=== PATIENT | male | born 1965 | race Caucasian/White ===

== ENCOUNTER 2024-10-14 12:18 | Emergency (ER) | payer OTHER, SELFPAY ==
[2024-10-14] VITALS (7 sets, daily range): BP systolic 119–147; BP diastolic 59–89; PULSE 64–102; RESP 11–28; TEMP 36.5–36.6; O2SAT 95–99; BMI 32.1
--- NOTE | 2024-10-14 12:19 | ECG_ITS ---
APPROVED REPORT Exam: Resting ECG HR:82 bpm ECG Measurements Heart Rate 82 AXES QRSd 110 QRS 11 QT 374 T 42 QTc 412 Conclusion ATRIAL FIBRILLATION ABNORMAL RHYTHM ECG UNCONFIRMED REPORT Electronically signed by : THERESE WELLS, 10/15/2024 06:33:37
--- NOTE | 2024-10-14 12:29 | XR_ITS ---
PROCEDURE INFORMATION: Exam: XR Chest Exam date and time: 10/14/2024 12:36 PM Age: 59 years old Clinical indication: Shortness of breath; Additional info: Short of breath TECHNIQUE: Imaging protocol: Radiologic exam of the chest. Views: 1 view. COMPARISON: No relevant prior studies available. FINDINGS: Lungs: There are minimal airspace opacities in the left lung base. Pleural spaces: There is no pneumothorax or pleural effusion. Heart/Mediastinum: Unremarkable. No cardiomegaly. Bones/joints: Unremarkable. IMPRESSION: Minimal airspace opacities in the left lower lobe, which may be related to atelectasis or pneumonia.
--- NOTE | 2024-10-14 12:36 | PC.NURSE ---
[facility] AT [facility]
[2024-10-14 12:38] LABS: Basophils % 0.4 % (0.1-2.0); Eosinophils # 0.1 K/mm3 (0.0-0.4); Eosinophils % 0.7 % (0.1-12.0); Hematocrit 49.5 % (42.0-52.0); Hemoglobin 16.3 g/dL (14.1-18.0); Lymphocytes # 1.9 K/mm3 (0.7-4.5); Lymphocytes % 21.5 % (10-50); Mean Corpuscular HGB Conc 32.9 g/dL (31.8-35.4); Mean Corpuscular Hemoglobin 26.9 pg (27.0-31.2); Mean Corpuscular Volume 81.7 fl (80-94); Mean Platelet Volume 12.1 fl (7.4-10.4); Monocytes # 0.7 K/mm3 (0.1-1.0); Neutrophils # 6.2 K/mm3 (1.8-7.8); Neutrophils % 69.1 % (37.0-80.0); Platelet Count 156 K/mm3 (142-424); Red Blood Count 6.06 M/mm3 (4.60-6.20); Red Cell Distribution Width 13.4 % (11.5-17.5)
[2024-10-14 12:42] LABS: Chloride 101 mmol/L (98-107); Potassium 4.6 mmoL/L (3.5-5.1); Sodium 138 mmol/L (136-145)
[2024-10-14 12:45] LABS: Alanine Aminotransferase 25 U/L (12-78); Albumin/Globulin Ratio 1.8 (1.1-1.8); Alkaline Phosphatase 60 U/L (38-126); Anion Gap 14.6 mEq/L (5-15); Aspartate Amino Transferase 29 U/L (17-59); Bilirubin,Total 1.5 mg/dl (0.2-1.3); Blood Urea Nitrogen 22 mg/dl (9-20); Carbon Dioxide 27 mmol/L (22.0-30.0); Creatinine Clearance Estimated 180 mL/min (50-200); Estimated Glomerular Filt Rate 115 ml/min (>60); GFR (African American) 139 ML/MIN (>60); Globulin 2.8 g/dL (1.3-3.2); Lipase 65 U/L (23-300); Total Protein,Serum 7.8 g/dl (6.3-8.2)
[2024-10-14 12:46] LABS: Calcium 9.6 mg/dl (8.4-10.2); Glucose 113 mg/dl (74-100)
[2024-10-14] MEDS: ASPIRIN 81MG CHEWABLE TABLET 324 MG PO (12:47)
--- NOTE | 2024-10-14 12:48 | ED_ITS ---
Discharge Plan Disposition Patient Disposition: Home, Self-Care Condition: Good Prescriptions Prescriptions: New furosemide [Lasix] 40 mg tablet 40 mg PO DAILY Qty: 30 2RF Eliquis DVT-PE Treat 30D Start 5 mg (74 tabs) tablets,dose pack 5 mg PO BID Qty: 74 0RF Rx Instructions: 10 mg twice daily for 7 days 5 mg twice daily from then on Eliquis 5 mg tablet 5 mg PO BID Qty: 60 2RF No Action metoprolol succinate 100 mg tablet extended release 24 hr 100 mg PO DAILY rosuvastatin 40 mg tablet 40 mg PO DAILY Referrals Follow up/Referrals: Clarissa Dickson APRN [Primary Care Provider] - See instructions Chan Rose MD [Staff Physician] - See instructions Activity Restrictions/Add. Instructions Additional Instructions/Restrictions: Return to the ER with any increased shortness of breath or chest pain. Please follow-up with PCP as scheduled. Clinical Impressions Clinical Impression: CHF (congestive heart failure), Afib Instructions Patient Instructions: Cardiac Arrhythmia (Alternative Therapy), Heart Failure Print Language Print Language: Pashto Discharge ED Provider: Zach Tellez General Adult HPI <Melinda Rodriguez (ED), COMPUTING MACHINE OPERATOR - Last Filed: 10/14/24 15:34> General Chief complaint: Arrhythmia/Palpitations Stated complaint: Chest Pain Time Seen by Provider: 10/14/24 12:20 Mode of Arrival: Family Vehicle Source of Information: Patient and Spouse Limitations: No Limitations Description of Symptoms (Recalled from ER Triage Doc. by RN): Pt presents with LL CHest pain and a hx of afib. In 2011 he had afib, was cardioverted and placed on eliquis for 8 wk. He is currently on metoprolol but no blood tihnners. States this pain has been present for approx 1 wk. Denies any dizziness, SOA, or n/v. He does reports he can not take a deep breath comfortably. History of Present Illness HPI narrative: 59-year-old male presents to the ED today for complaint of left lower chest pain and shortness of breath with exertion over the last week. He has history of A- fib back in 2011. He was cardioverted and placed on Eliquis for 8 weeks. He saw senior compensation analyst at the [facility] until 2019 but then stopped. He says he started having shortness of breath with exertion and muscle fatigue 1 week ago. He said with the initial episode of A-fib he had sweating but he has no sweating this time. He normally has normal blood pressure and normal heart rate. On the monitor he has 84 heart rate and 160/100. He is on aspirin, rosuvastatin and metoprolol. He no longer takes any Eliquis or any other blood thinners. He does not see cardiology anymore. He says he only has pain when he is exerted or takes a big deep breath. He rates the pain as 1-2. No other symptoms at this time. Related Data Home Medications ?Medication ?Instructions ?Recorded ?Confirmed metoprolol succinate 100 mg 100 mg PO DAILY 10/14/24 10/14/24 tablet,extended release 24 hr rosuvastatin 40 mg tablet 40 mg PO DAILY 10/14/24 10/14/24 Previous Rx's ?Medication ?Instructions ?Recorded apixaban 5 mg (74 tabs) tablets in 5 mg PO BID #74 tabs 10/14/24 a dose pack (Eliquis DVT-PE Treat 30D Start) apixaban 5 mg tablet (Eliquis) 5 mg PO BID #60 tabs 10/14/24 furosemide 40 mg tablet (Lasix) 40 mg PO DAILY #30 tabs 10/14/24 Allergies Allergy/AdvReac Type Severity Reaction Status Date / Time atorvastatin AdvReac Intermediate Muscle Pain Verified 10/14/24 12:42 [facility] <Melinda Rodriguez (ED), COMPUTING MACHINE OPERATOR - Last Filed: 10/14/24 15:34> [facility] Disclaimer: The information contained in this section may have been updated after the patient was seen, as this information can be updated by other users. Medical History History of cardioversion Afib Social History (Updated 10/14/24 @ 15:34 by Melinda Rodriguez (ED), COMPUTING MACHINE OPERATOR) Smoking Status: Never smoker alcohol intake: never current occupational status: other Travel in the last 8 weeks: None Have you lived/traveled outside US in past 30 days?: No Contact w/someone who lives/traveled outside US past 30 days?: No Exposure to someone with infectious disease in past 14 days?: No Do you have a fever (greater than 100.4 F or 38 C)?: No Have you tested positive for COVID-19: No Exposed to someone with COVID-19 in past 14 days?: No Do you have a sore throat?: No Do you have a cough?: No Do you have any weakness?: No Do you have any diarrhea?: No Are you experiencing any unusual bleeding?: No Do you have any muscle aches/pain?: No Do you have any abdominal pain?: No Are you experiencing loss of taste or smell?: No <Melinda Rodriguez (ED), COMPUTING MACHINE OPERATOR - Last Filed: 10/14/24 15:34> ROS Obtained: Yes Systems reviewed as appropriate & no additional complaints except as documented Constitutional Constitutional: Reports as per HPI Physical Exam <Melinda Rodriguez (ED), COMPUTING MACHINE OPERATOR - Last Filed: 10/14/24 15:34> General General appearance: alert and in no apparent distress Head Head exam: normocephalic Eye Eye exam: Present normal appearance and PERRL ENT ENT exam: Present normal exam and mucous membranes moist Neck Neck exam: Present normal inspection and trachea midline Chest Chest inspection: Present normal inspection and symmetric chest wall rise Respiratory Respiratory exam: Present normal lung sounds bilaterally Cardiovascular Cardiovascular exam: Present irregular rhythm, normal heart sounds, +S1 and +S2 Abdominal Exam Abdominal exam: Present soft and normal bowel sounds Extremities Exam Extremities exam: Present normal inspection, full ROM and normal capillary refill Back Exam Back exam: Present normal inspection and full ROM Neurological Exam Neurological exam: Present alert, oriented X3 and normal gait Psychiatric Psychiatric exam: Present normal affect and normal mood Skin Skin exam: Present warm and dry Medical Decision Making <Melinda Rodriguez (ED), COMPUTING MACHINE OPERATOR - Last Filed: 10/14/24 15:34> Medical Records Screening: Per USPSTF and CDC recommendations, given the prevalence of disease in our region, it is our hospital?s policy to screen for HIV and viral Hepatitis for all patients aged 18 and over and those with ongoing risk factors. John Inquiry Pt receiving controlled substance: No John was queried for this patient: No Vital Signs: 10/14/24 12:19 10/14/24 12:30 10/14/24 13:00 Temperature 97.7 F Temperature Source Oral Pulse Rate 84 78 Pulse Rate [Right] 102 H Respiratory Rate 19 25 H 27 H Blood Pressure 130/79 121/76 Blood Pressure [Right Arm] 130/79 Blood Pressure Mean [Right Arm] 96 Blood Pressure Source [Right Arm] Automatic Cuff Blood Pressure Position 02 Sat by Pulse Oximetry 95 95 95 Oxygen Delivery Method Room Air Room Air 10/14/24 13:30 10/14/24 14:00 10/14/24 14:00 Temperature 97.9 F Temperature Source Oral Pulse Rate 68 84 64 Pulse Rate [Right] Respiratory Rate 28 H 18 11 L Blood Pressure 121/76 121/59 L 147/89 H Blood Pressure [Right Arm] Blood Pressure Mean [Right Arm] Blood Pressure Source [Right Arm] Blood Pressure Position Sitting 02 Sat by Pulse Oximetry 95 97 Oxygen Delivery Method Room Air 10/14/24 14:30 10/14/24 15:00 Temperature Temperature Source Pulse Rate 97 H 79 Pulse Rate [Right] Respiratory Rate 28 H 21 Blood Pressure 123/74 119/71 Blood Pressure [Right Arm] Blood Pressure Mean [Right Arm] Blood Pressure Source [Right Arm] Blood Pressure Position 02 Sat by Pulse Oximetry 97 97 Oxygen Delivery Method Room Air Lab Data Lab Results 10/14/24 12:15: WBC 9.0, RBC 6.06, Hgb 16.3, Hct 49.5, MCV 81.7, MCH 26.9 L, MCHC 32.9, RDW 13.4, Plt Count 156, MPV 12.1 H, Neut % (Auto) 69.1, Lymph % (Auto) 21.5, [place] % (Auto) 8.0, Eos % (Auto) 0.7, Baso % (Auto) 0.4, Neut # (Auto) 6.2, Lymph # (Auto) 1.9, [place] # (Auto) 0.7, Eos # (Auto) 0.1, Baso # (Auto) 0.0, Sodium 138, Potassium 4.6, Chloride 101, Carbon Dioxide 27, Anion Gap 14.6, BUN 22 H, Creatinine 0.70, Estimated Creat Clear 180, Estimated GFR 115, Est GFR ( Amer) 139, Glucose 113 H, Calcium 9.6, Total Bilirubin 1.5 H, AST 29, ALT 25, Alkaline Phosphatase 60, Troponin I < 0.01, NT-Pro-B Natriuret Pep 1990 H, Total Protein 7.8, Albumin 5.0, Globulin 2.8, Albumin/Globulin Ratio 1.8, Lipase 65 10/14/24 12:15 10/14/24 12:15 Orders (Tests/Meds): ED MEDICATIONS Discontinued Medications Generic Name Dose Route Start Last Admin Trade Name Primo PRN Reason Stop Dose Admin Aspirin 324 mg 10/14/24 12:29 10/14/24 12:47 Aspirin 81mg Chewable Tablet PO 10/14/24 12:30 324 mg ONCE ONE Administration Enoxaparin Sodium 115 mg 10/14/24 14:45 10/14/24 14:54 Enoxaparin 120mg/0.8ml Syringe SUBCUT 10/14/24 14:46 115 mg ONCE ONE Administration Furosemide 60 mg 10/14/24 14:30 10/14/24 14:36 Furosemide 40mg/4ml Vial IV 10/14/24 14:31 60 mg ONCE ONE Administration Nitroglycerin 0.4 mg 10/14/24 12:29 Nitroglycerin 0.4mg Sl Tablet SL 10/15/24 12:30 Q5MINP PRN Chest Pain ORDERS Category Date Time Status Chest XR -- portable [XR chest portable] Stat Exams 10/14/24 12:29 Completed POCUS Point of Care (ER Only) Stat Exams 10/14/24 14:23 Completed BNP [NT Pro Brain Natriuretic Pep.] Stat Lab 10/14/24 12:15 Completed CBC [Complete Blood Count Auto Diff] Stat Lab 10/14/24 12:15 Completed Comprehensive Metabolic Panel Stat Lab 10/14/24 12:15 Completed Lipase Stat Lab 10/14/24 12:15 Completed Troponin I Stat Lab 10/14/24 18:15 Completed ECG Data Tracing #1: Arrhythmias present: afib Physician Consults Physician Consulted: Alyce Reason -: Admission Comment/Response: Dr Mead asked me to discuss [facility] admission versus [facility]. Once I did this Alyce came down to evaluate patient in the Er HEART Score History (anamnesis): Slightly suspicious ECG: Non-specific disturbance Age: 45-65 years Risk factors: 1-2 risk factors Troponin: </= normal limit HEART Score: 3 Medical Decision Narrative: Insert review patient is a 59-year-old male presenting to the emergency department for evaluation of shortness of breath and muscle fatigue that started this past week. Patient is hemodynamically stable and nontoxic-appearing upon arrival, afebrile. Differential diagnosis includes CAD, A-fib, other arrhythmias among others. Workup will be conducted with hematologic labs, specific imaging including x-ray and ultrasound. Initial inventions include labs, ultrasound, aspirin. Initial workup reviewed by me hematologic labs are remarkable for elevated BNP at 1989. Imaging informally interpreted by me and remarkable for nothing acute. Formal imaging read remarkable for small pleural effusion. Upon repeat evaluation patient appears well. Shortness of breath is gone since patient is lying down. Typically only has shortness of breath and pain when taking a big deep breath or moving. Due to elevated BNP at 1989 patient has new onset CHF I did call Dr. Mead for admission. He came down to the ER for evaluation. He wants patient to have IV Lasix here in the ED. Dr. Tellez did a bedside ultrasound on his heart and discovered systolic and diastolic failure but no right heart strain. We did not do a CT of his chest because he has no right heart strain. We did give him Lovenox and will start him back on Eliquis to go home on. Patient will follow-up outpatient with cardiology on Wednesday. He will return if any worsening problems or concerns. <Zach Tellez MD - Last Filed: 10/15/24 09:43> Vital Signs: 10/14/24 12:19 10/14/24 12:30 10/14/24 13:00 Temperature 97.7 F Temperature Source Oral Pulse Rate 84 78 Pulse Rate [Right] 102 H Respiratory Rate 19 25 H 27 H Blood Pressure 130/79 121/76 Blood Pressure [Right Arm] 130/79 Blood Pressure Mean [Right Arm] 96 Blood Pressure Source [Right Arm] Automatic Cuff Blood Pressure Position 02 Sat by Pulse Oximetry 95 95 95 Oxygen Delivery Method Room Air Room Air 10/14/24 13:30 10/14/24 14:00 10/14/24 14:00 Temperature 97.9 F Temperature Source Oral Pulse Rate 68 84 64 Pulse Rate [Right] Respiratory Rate 28 H 18 11 L Blood Pressure 121/76 121/59 L 147/89 H Blood Pressure [Right Arm] Blood Pressure Mean [Right Arm] Blood Pressure Source [Right Arm] Blood Pressure Position Sitting 02 Sat by Pulse Oximetry 95 97 Oxygen Delivery Method Room Air 10/14/24 14:30 10/14/24 15:00 Temperature Temperature Source Pulse Rate 97 H 79 Pulse Rate [Right] Respiratory Rate 28 H 21 Blood Pressure 123/74 119/71 Blood Pressure [Right Arm] Blood Pressure Mean [Right Arm] Blood Pressure Source [Right Arm] Blood Pressure Position 02 Sat by Pulse Oximetry 97 97 Oxygen Delivery Method Room Air Lab Data Lab Results 10/14/24 12:15: WBC 9.0, RBC 6.06, Hgb 16.3, Hct 49.5, MCV 81.7, MCH 26.9 L, MCHC 32.9, RDW 13.4, Plt Count 156, MPV 12.1 H, Neut % (Auto) 69.1, Lymph % (Auto) 21.5, [place] % (Auto) 8.0, Eos % (Auto) 0.7, Baso % (Auto) 0.4, Neut # (Auto) 6.2, Lymph # (Auto) 1.9, [place] # (Auto) 0.7, Eos # (Auto) 0.1, Baso # (Auto) 0.0, Sodium 138, Potassium 4.6, Chloride 101, Carbon Dioxide 27, Anion Gap 14.6, BUN 22 H, Creatinine 0.70, Estimated Creat Clear 180, Estimated GFR 115, Est GFR ( Amer) 139, Glucose 113 H, Calcium 9.6, Total Bilirubin 1.5 H, AST 29, ALT 25, Alkaline Phosphatase 60, Troponin I < 0.01, NT-Pro-B Natriuret Pep 1990 H, Total Protein 7.8, Albumin 5.0, Globulin 2.8, Albumin/Globulin Ratio 1.8, Lipase 65 Orders (Tests/Meds): ED MEDICATIONS Discontinued Medications Generic Name Dose Route Start Last Admin Trade Name Haydenq PRN Reason Stop Dose Admin Aspirin 324 mg 10/14/24 12:29 10/14/24 12:47 Aspirin 81mg Chewable Tablet PO 10/14/24 12:30 324 mg ONCE ONE Administration Enoxaparin Sodium 115 mg 10/14/24 14:45 10/14/24 14:54 Enoxaparin 120mg/0.8ml Syringe SUBCUT 10/14/24 14:46 115 mg ONCE ONE Administration Furosemide 60 mg 10/14/24 14:30 10/14/24 14:36 Furosemide 40mg/4ml Vial IV 10/14/24 14:31 60 mg ONCE ONE Administration Nitroglycerin 0.4 mg 10/14/24 12:29 Nitroglycerin 0.4mg Sl Tablet SL 10/15/24 12:30 Q5MINP PRN Chest Pain ORDERS Category Date Time Status Chest XR -- portable [XR chest portable] Stat Exams 10/14/24 12:29 Completed POCUS Point of Care (ER Only) Stat Exams 10/14/24 14:23 Completed BNP [NT Pro Brain Natriuretic Pep.] Stat Lab 10/14/24 12:15 Completed CBC [Complete Blood Count Auto Diff] Stat Lab 10/14/24 12:15 Completed Comprehensive Metabolic Panel Stat Lab 10/14/24 12:15 Completed Lipase Stat Lab 10/14/24 12:15 Completed Troponin I Stat Lab 10/14/24 18:15 Completed ECG Data Tracing #1: I reviewed this ECG and interpreted as documented below: (A-fib 82 bpm with QRS 110, QTc 412. Normal axis, no acute ischemic change.) HEART Score HEART Score: 3 Medical Decision Narrative: Insert review patient is a 59-year-old male presenting to the emergency department for evaluation of shortness of breath and muscle fatigue that started this past week. Patient is hemodynamically stable and nontoxic-appearing upon arrival, afebrile. Differential diagnosis includes CAD, A-fib, other arrhythmias among others. Workup will be conducted with hematologic labs, specific imaging including x-ray and ultrasound. Initial inventions include labs, ultrasound, aspirin. Initial workup reviewed by me hematologic labs are remarkable for elevated BNP at 1989. Imaging informally interpreted by me and remarkable for nothing acute. Formal imaging read remarkable for small pleural effusion. Upon repeat evaluation patient appears well. Shortness of breath is gone since patient is lying down. Typically only has shortness of breath and pain when taking a big deep breath or moving. Due to elevated BNP at 1989 patient has new onset CHF I did call Dr. Mead for admission. He came down to the ER for evaluation. He wants patient to have IV Lasix here in the ED. Dr. Tellez did a bedside ultrasound on his heart and discovered systolic and diastolic failure but no right heart strain. We did not do a CT of his chest because he has no right heart strain. We did give him Lovenox and will start him back on Eliquis to go home on. Patient will follow-up outpatient with cardiology on Wednesday. He will return if any worsening problems or concerns. I was consulted by the [place], and we discussed the complexity of the problems being addressed. I approved the treatment and management plan for this patient's care in the Emergency Department, thus performing a substantive portion of the medical decision making. I independently examined and interviewed patient. I independently interpreted results. Nonactionable CBC or chemistry, but patient does have new BNP nearly 2000 as well as new onset (for all intents and purposes) atrial fibrillation. Patient states that he did have atrial fibrillation in the past, was only on anticoagulation for short period of time and taken off. Was never restarted on it. States that he is feeling short of breath, but denies swelling. On my exam he is not clinically volume overloaded and lungs are not particularly edematous on auscultation. Speaking in full sentences not requiring oxygen saturating 98 to 100% while up and talking with me. Chest x-ray does appear to have cephalization of pulmonary vasculature as well as small left-sided pleural effusion consistent with mild volume overload. Bedside [id number] ultrasound with left heart 5.3 centimeters, right heart 3.3 cm at end diastole. Ejection fraction estimated 40 to 45%. I recommended patient be admitted, however shared decision making between myself, hospitalist, patient and agreed that they feel comfortable going home. I do not feel this is the ideal situation, but patient is in mild CHF, not clinically volume overloaded, no acute oxygen requirement, minimal findings on chest x-ray, no acute respiratory distress with negative cardiac workup otherwise. Patient was given IV Lasix here prior to being discharged. Patient to be discharged with diuretics and Eliquis for new onset A-fib as well as cardiology follow-up. Patient's is a nurse practitioner and feels comfortable managing these at home, as do I after further conversation with her and patient. They do have support and have the ability to return if needed. Because patient at baseline without signs or symptoms of clinical decompensation, deemed appropriate for discharge. Results were relayed to patient who voiced understanding and were agreeable to outpatient management and follow up. I discussed my clinical impression with patient and answered all questions. At this time, the evidence for any other entities in the differential is insufficient to warrant any further testing or ED observation. This was explained as well. Advisory was given that persistent or worsening symptoms require further evaluation. I confirmed the understanding of this discussion. Zach Tellez MD Procedures <Zach Tellez MD - Last Filed: 10/15/24 09:43> Limited Ultrasound Indication:: Limited cardiac ultrasound Indication: CHF, A-fib both new onset Identified cardiac views: -Cardiac parasternal long axis -Cardiac parasternal short axis -Cardiac apical four-chamber Findings: -Cardiac activity present -Gross wall motion normal -Pericardial effusion absent -Right heart strain absent -EPSS 13.7 -End-diastolic left ventricular diameter 5.3 -End-diastolic right ventricular diameter 3.3 Impression: -Gross systolic and diastolic dysfunction. No evidence of valvular regurgitation. Estimated EPSS 13.7 and EF estimated 40-45. No evidence of right heart strain Images were saved to permanent archive The study was technically adequate CPT: 09475 This study was performed by me, and I personally interpreted all images/videos. Based on my clinical judgement, these images were adequate and did not necessitate further imaging Critical Care <Melinda Rodriguez (MORIS), ADRIENNE - Last Filed: 10/14/24 15:34> Critical Care Time Critical Care Time: No <Zach Tellez MD - Last Filed: 10/15/24 09:43> Critical Care Time Critical Care Time: Yes (Cardiac) Attestation: On 10/14/24, the high probability of a clinically significant, sudden or life threatening deterioration of the following system(s) required my full and direct attention, intervention and personal management. The time I documented below is in addition to time spent performing reported procedures but includes the following listed in this critical care notation. Total Time Total Critical Care Time: 35
--- NOTE | 2024-10-14 12:56 | PC.NURSE ---
Patient in room and doesn't need anything
[2024-10-14 13:01] LABS: Troponin I < 0.01 ng/ml (0.00-0.034)
[2024-10-14 13:17] LABS: NT Pro Brain Natriuretic Pep. 1990 pg/mL (0-125)
--- NOTE | 2024-10-14 13:58 | PC.NURSE ---
DR JARAMILLO AT BEDSIDE
--- NOTE | 2024-10-14 14:00 | PC.NURSE ---
Dr. Mead at bedside
[2024-10-14] MEDS: FUROSEMIDE 40MG/4ML VIAL 60 MG IV (14:36)
--- NOTE | 2024-10-14 14:45 | EXP.MED.CON ---
History of Present Illness *Admission Date: 10/14/24 *Reason for visit:: Shortness of breath *History of present illness: Mr. Brooks is a 59-year-old male who presented to the ER because of complaint of left lower chest pain with deep breathing. 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 Patient reports pains actually and present for about a week. Complaining of some mild dyspnea with exertion. Left rib pain is like a stitch that hurts with deep inspiration. Hurts when he lays on different sides as well. Able to lay flat however without shortness of breath, sleeps with a CPAP. Does not need to prop up on pillows. Denies cough, hemoptysis, precordial chest pain, nausea or vomiting. No referred pains. Afebrile. No syncope or confusion. No swelling in his legs. Workup in the ER concerning for elevated BNP at 1989. Also found to be in rate controlled A-fib. Chest x-ray with questionable minimal effusions. Hemodynamically stable and on room air throughout time in the ER. Medicine was consulted for possible admission versus assistance in management. Concern for CHF exacerbation. Labs relatively unremarkable. On evaluation, patient appears comfortable. Rate in the 70s and 80s but clearly A-fib on telemetry. Long history of A-fib with previous conversion over a decade ago. On metoprolol at home. No longer on anticoagulation at this time, has previously been on Eliquis with good tolerance. [facility] Disclaimer: The information contained in this section may have been updated after the patient was seen, as this information can be updated by other users. Medical History History of cardioversion Afib Social History (Updated 10/14/24 @ 15:34 by Melinda Rodriguez (ED), ENDOSCOPY TECHNICAN) Smoking Status: Never smoker alcohol intake: never current occupational status: other Travel in the last 8 weeks: None Have you lived/traveled outside US in past 30 days?: No Contact w/someone who lives/traveled outside US past 30 days?: No Exposure to someone with infectious disease in past 14 days?: No Do you have a fever (greater than 100.4 F or 38 C)?: No Have you tested positive for COVID-19: No Exposed to someone with COVID-19 in past 14 days?: No Do you have a sore throat?: No Do you have a cough?: No Do you have any weakness?: No Do you have any diarrhea?: No Are you experiencing any unusual bleeding?: No Do you have any muscle aches/pain?: No Do you have any abdominal pain?: No Are you experiencing loss of taste or smell?: No Review of Systems Review of Systems Review of systems (narrative): 14 point review of systems performed, pertinent positives and negatives as per HPI Exam Data for Last 24 hours Vital signs and Labs for Last 24 Hours: Temp Pulse Resp BP Pulse Ox O2 Del Method 97.9 F 97 H 28 H 123/74 97 Room Air 10/14/24 14:00 10/14/24 14:30 10/14/24 14:30 10/14/24 14:30 10/14/24 14:30 10/14/24 14:00 Laboratory Results - last 24 hr 10/14/24 12:15: WBC 9.0, RBC 6.06, Hgb 16.3, Hct 49.5, MCV 81.7, MCH 26.9 L, MCHC 32.9, RDW 13.4, Plt Count 156, MPV 12.1 H, Neut % (Auto) 69.1, Lymph % (Auto) 21.5, Ross % (Auto) 8.0, Eos % (Auto) 0.7, Baso % (Auto) 0.4, Neut # (Auto) 6.2, Lymph # (Auto) 1.9, Ross # (Auto) 0.7, Eos # (Auto) 0.1, Baso # (Auto) 0.0, Sodium 138, Potassium 4.6, Chloride 101, Carbon Dioxide 27, Anion Gap 14.6, BUN 22 H, Creatinine 0.70, Estimated Creat Clear 180, Estimated GFR 115, Est GFR ( Amer) 139, Glucose 113 H, Calcium 9.6, Total Bilirubin 1.5 H, AST 29, ALT 25, Alkaline Phosphatase 60, Troponin I < 0.01, NT-Pro-B Natriuret Pep 1990 H, Total Protein 7.8, Albumin 5.0, Globulin 2.8, Albumin/Globulin Ratio 1.8, Lipase 65 I & O for Last 24 hours: Intake & Output 01/05/2810/12/24 10/13/24 10/14/24 23:59 23:59 23:59 23:59 Weight 113.398 kg Constitutional Constitutional: no acute distress, obese and cooperative *Routine HEENT Exam Head: Present normocephalic Eye: Present EOMI and PERRL ENT: Present mucous membranes moist *Routine Neck Exam Neck: Present supple; Absent lymphadenopathy *Routine Respiratory Exam Respiratory: Present CTA bilaterally; Absent respiratory distress, rhonchi, stridor, wheezes or crackles *Routine Cardiovascular Exam Cardiovascular: Present irregularly irregular Comments: Rate controlled *Routine Abdominal Exam Abdominal: Present soft and normoactive bowel sounds; Absent tenderness *Routine Rectal Exam Patient deferred: visual exam *Routine Exam Patient deferred: penile exam *Routine Extremities Exam Extremities: Absent cyanosis, clubbing or edema *Routine Skin Exam Skin: Present warm; Absent rash *Routine Neurological Exam Neurological: Present alert, oriented X3 and moving all extremities; Absent altered mental status Meds Home Medications and Allergies Home Medications ?Medication ?Instructions ?Recorded ?Confirmed ?Type apixaban 5 mg (74 tabs) tablets in 5 mg PO BID #74 tabs 10/14/24 Rx a dose pack (Eliquis DVT-PE Treat 30D Start) apixaban 5 mg tablet (Eliquis) 5 mg PO BID #60 tabs 10/14/24 Rx furosemide 40 mg tablet (Lasix) 40 mg PO DAILY #30 tabs 10/14/24 Rx metoprolol succinate 100 mg 100 mg PO DAILY 10/14/24 10/14/24 History tablet,extended release 24 hr rosuvastatin 40 mg tablet 40 mg PO DAILY 10/14/24 10/14/24 History New Prescriptions to Start Prescriptions: apixaban [Eliquis] Zach Tellez apixaban [Eliquis DVT-PE Treat 30D Start] Zach Tellez furosemide [Lasix] Zach Tellez Allergies Allergy/AdvReac Type Severity Reaction Status Date / Time atorvastatin AdvReac Intermediate Muscle Pain Verified 10/14/24 12:42 Results Labs 10/14/24 12:15 10/14/24 12:15 Labs: Abnormal lab results 10/14/24 Range/Units 12:15 MCH 26.9 L (27.0-31.2) pg MPV 12.1 H (7.4-10.4) fl BUN 22 H (9-20) mg/dl Glucose 113 H (74-100) mg/dl Total Bilirubin 1.5 H (0.2-1.3) mg/dl NT-Pro-B Natriuret Pep 1990 H (0-125) pg/mL H & H 10/14/24 Range/Units 12:15 Hgb 16.3 (14.1-18.0) g/dL Hct 49.5 (42.0-52.0) % All other labs normal. Assessment and Plan *Assessment and plan (1) Afib: Status: Acute Category: Medical Code(s): I48.91 - Unspecified atrial fibrillation (2) CHF (congestive heart failure): Status: Acute Category: Medical Code(s): I50.9 - Heart failure, unspecified (3) HTN (hypertension): Status: Acute Category: Medical Code(s): I10 - Essential (primary) hypertension Plan 59-year-old male with previous history of A-fib, previously been cardioverted in sinus rhythm. His previous bereavement coordinator discontinued Eliquis. Continued on metoprolol and statin however. Presented with a week of symptoms. Found to be in controlled A-fib with suspicion for new CHF given elevated BNP. Hemodynamically stable. Medicine consulted for evaluation. After examination and discussion with patient. This patient is hemodynamically stable, rate controlled, satting 96 to 100% on room air, and has relatively benign exam, recommend discharge home with initiation of anticoagulation with Eliquis and initiation of Lasix 40 mg daily for diuresis due to CHF component. Recommend follow-up with cardiology on Wednesday in their clinic. Has an appointment already with his PCP on Wednesday. 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 Plan discussed with ER provider and family, patient comfortable with plan to discharge home with medical management and close follow-up as an outpatient. Thank you for the opportunity to assist in care of this patient.
[2024-10-14] MEDS: ENOXAPARIN 120MG/0.8ML SYRINGE 115 MG SUBCUT (14:54)
--- NOTE | 2024-10-14 15:05 | PC.NURSE ---
Last urine output 500ml
--- NOTE | 2024-10-14 15:27 | PC.NURSE ---
PT ASSISTED TO BR
== END 2024-10-14 15:38 | disposition home or self-care (01) ==
PROVIDERS: Nurse Practitioner; Emergency Provider Emergency Medicine; PCP Nurse Practitioner
DX: I50.9 Heart failure, unspecified (principal); I48.91 Unspecified atrial fibrillation; I10 Essential (primary) hypertension; R07.9 Chest pain, unspecified; R06.02 Shortness of breath; R53.83 Other fatigue
CPT/HCPCS: 71045; 80053; 83690; 83880; 84484; 85025; 93005; 96372; 96374; 99291; J1650; J1940

== ENCOUNTER 2024-10-30 10:47 | Outpatient (CLI) | payer OTHER, SELFPAY ==
[2024-10-30 13:04] LABS: D-Dimer 0.65 ug/mL (0.0-0.5)
== END 2024-10-30 23:59 | disposition home or self-care (01) ==
LOC: LAB 10:51
PROVIDERS: Visit Provider Nurse Practitioner
DX: R06.00 Dyspnea, unspecified (principal); M54.9 Dorsalgia, unspecified; I48.91 Unspecified atrial fibrillation; I10 Essential (primary) hypertension; R07.9 Chest pain, unspecified
CPT/HCPCS: 36415; 85378; 93270

== ENCOUNTER 2024-12-12 12:43 | Outpatient (CLI) | payer OTHER, SELFPAY ==
--- NOTE | 2024-12-12 12:47 | CA_ITS ---
APPROVED REPORT EXAM: Comprehensive 2D, Doppler, and color-flow Echocardiogram Fish Farmer: Nena Jurado CRT Ht: 6 ft 2 in Wt: 243lbs BSA: 2.36 BP: 109/70 mmHg Indications: Chest Pain, Congestive Heart Failure, Shortness of Breath, Atrial Fibrillation, Hypertension/HDD, cardioversion 2013 2D Dimensions LA Volume 58.00 mL LA Volume Index 24.58 mL/m2 (M/F) 16-34 M-Mode Dimensions RVDd 3.32 cm (0.9-2.6) LA Diam 4.97 cm (1.9-4.0) LVDd 5.61 cm (3.5-5.7) LVDs 3.70 cm (3.5-5.7) IVSd 1.31 cm (0.6-1.1) PWd 0.85 cm (0.6-1.1) EF (Teich) 62.30% FS 34.00% EDV (Teich) 154.30 mL TAPSE 2.27 (<1.7) ESV (Teich) 58.10 mL LV Diastology E Decel Time 150 (160-240 msec) E/A Ratio 1.9 MED A' 9.20 cm/s LAT A' 4.90 cm/s Aortic Valve AO Peak GR. 6.60 mmHg Mitral Valve MV E Max Keegan. 87.0 (40-130 cm/s) MV A Velocity 46.0 (40-130 cm/s) E/A Ratio 1.89 MV PHT 44.0 ms Pulmonary Valve PV Peak Velocity 129.0 (50-150 cm/s) Tricuspid Valve TR P. Velocity 405.00 cm/s RAP Estimate 10.00 mmHg RVSP 75.50 mmHg Left Ventricle The left ventricle is normal size. The left ventricular systolic function is low normal. There is increased LV wall thickness. There is normal LV segmental wall motion. Diastolic function is indeterminate. LVEF is 50%. Right Ventricle The right ventricle is mildly dilated. Right ventricle is mildly hypokinetic. Atria Left atrium is moderately dilated. Right atrium is moderately dilated. There is no Doppler evidence of interatrial shunt. Aortic Valve Aortic valve is mildly thickened. There is no aortic valvular stenosis. Trace aortic regurgitation. Mitral Valve The mitral valve is normal in structure. No evidence of mitral valve stenosis. Trace mitral regurgitation. Tricuspid Valve The tricuspid valve leaflets are thin and pliable. Trace tricuspid regurgitation. There is insufficient TR jet to estimate RVSP. Pulmonic Valve The pulmonary valve is normal in structure. Trace pulmonic regurgitation. Great Vessels The aortic root is normal in size. IVC is normal in size and collapses >50% with inspiration. Pericardium There is no pericardial effusion. Other Information Study Quality: Fair Conclusion Low normal LV systolic function (LVEF 50%). Mild RV dilation with mild reduction in RV function. Biatrial dilation. No significant valvular stenosis or regurgitation. Electronically signed by : Zee Christina MD 12/19/2024 12:22:15
== END 2024-12-12 23:59 | disposition home or self-care (01) ==
LOC: RT 12:44
PROVIDERS: Visit Provider Internal Medicine Cardiovascular Disease
DX: I51.7 Cardiomegaly (principal); R06.00 Dyspnea, unspecified; I48.91 Unspecified atrial fibrillation
CPT/HCPCS: 93306

== ENCOUNTER 2025-01-09 07:07 | Outpatient (CLI) | payer OTHER, SELFPAY ==
--- NOTE | 2025-01-09 | CA_ITS ---
APPROVED REPORT Exam: Pharmacologic Technologist: Jasmine Vanessa Ht: 6 ft 2 in Wt: 241 lbs BSA: 2.35 m2 HR: 82 bpm BP: 108/75 mmHg Stress Test Details Test: Lexiscan HR Resting HR: 82 bpm Max Heart Rate (APMHR): 159.782186 bpm Max HR Achieved: 108 bpm Target HR (85% APMHR): 135.324508 bpm % of APMHR: 67.92 Recovery HR: 108 bpm BP Resting BP: 108.0/75.0 mmHg Max BP: 125.0/73.0 mmHg Recovery BP: 125.0/73.0 mmHg ECG Resting ECG: Atrial fibrillation Stress ECG Conclusion Symptoms: Chest tightness Arrhythmias/Ectopy: PVC, Afib ST-T Changes: Less than [address] depression Conclusion: EKG unremarkable due to Lexiscan infusion. Electronically signed by : Zee Christina MD 01/09/2025 12:35:21
[2025-01-09] MEDS: SODIUM CHLORIDE 0.9% 10ML SYR (RAD ONLY) 10 ML IV ×2 (07:30→08:30)
--- NOTE | 2025-01-09 07:30 | NM_ITS ---
APPROVED REPORT Exam: Nuclear Stress Test Indication: hyperlipidemia, tob use, angina, sob, palpitations, a-fib Patient Location: Outpatient Stress Tech: Jasmine Vanessa [place] Tech:China Beckman STEVENTona RT (R)(N)(M) Ht: 6 ft 2 in Wt: 237 lbs HR: 76 bpm BP: 108/75 mmHg BSA: 2.34 m2 TID: 1.17 BMI: 30.4 History: hyperlipidemia, tob use, angina, sob, palpitations, a-fib Procedure: Patient received 0.4 mg of intravenous Lexiscan, resting heart rate 76 bpm, resting blood pressure 108/75 mmHg, with Lexiscan maximum heart rate achieved was 104 bpm which is % of the maximum predicted heart rate and blood pressure was 110/70 mmHg. With Lexiscan, patient denied any complaint of chest pain. Cardiac Stress and Resting SPECT Images: Cardiac Stress and Resting SPECT images were obtained using technetium 99m Myoview 31.5 mCi stress and 10.75 mCi at rest. Resting and stress imaging in supine and prone positions demonstrate a medium sized, moderate, partially reversible perfusion defect in the basal to mid inferior LV rodrigues. Gated imaging demonstrates mild reduction of global LV systolic function. LVEF is calculated at 46%. Conclusion: Medium sized, moderate, partially reversible perfusion defect in the basal to mid inferior LV rodrigues. Findings are suggestive of partial reversible ischemia. Gated imaging demonstrates mild reduction of global LV systolic function. LVEF is calculated at 46%. Electronically signed by : Zee Christina MD 01/09/2025 12:35:10
[2025-01-09] MEDS: REGADENOSON 0.4MG/5ML SYRINGE 0.4 MG IV (08:30)
[2025-01-09] MEDS: ISOTOPE MYOVIEW (PER STUDY) 1 DOSE IV (12:15)
--- OUTSIDE RECORDS SUMMARY | 2025-01-11 20:44 | XMS_ITS | Encounter Summary ---
Author Name [facility] [place] [facility] [facility] [place] Address [address] [place] [id number] Care Team Providers Care Arbor Press Operator Name Role Phone CHANEL BRITTANY Primary Care Provider Unavailabl e ULICES GREENFIELD Primary Care Provider Unavailabl e Insurance Providers: All historical and current Section Date Range: From patient's date of to the date document was created. This section includes the names of all active insurance providers for the patient. Insurance Provider Type of Coverage Plan Name Start of Policy Coverage End of Policy Coverage Group Number Member ID Insurance Provider's Telephone Number Policy Pérez's Name Patient's Relationship to Policy Pérez AETNA VISION AETNA VISIO N [facility] Jan 02, 2022 [id number] [place] PATIENT AETNA VISION VISION AETNA VISIO N [facility] R Jan 02, 2022 [id number] [place] PATIENT [employer] TRICA RE DODA Oct 04, 2017 DODA [id number] [place] PATIENT (WNR) NONBI LLABL E Sep 03, 2010 NONBILL ABLE [id number] [place] PATIENT [facility] 2024 TRICA RE SELEC T Oct 04, 2024 [facility] [id number] [place] PATIENT [facility] 2024 JACKY Carbone WNR Oct 04, 2024 [facility] [id number] [phone] [place] PATIENT Selected Encounter This section includes the information on record at [place] for the Encounter. Date/Time Encounter Type Encounter Description Reason Pro vider Source Nov 30, 2024 12:35 PM Outpatient Encounter COMMUNITY CARE CONSULT IHE Encounter Template Text not used by [place] Plan of Treatment: Future Appointments (+ 6 months) and Future Tests (+/- 45 days) The Plan of Treatment section includes future care activities for the patient from all [place] [facility]. This section includes future appointments and future orders which are active, pending or scheduled. Future Appointments This section includes appointments that were scheduled to occur 6 months from the date of the Encounter, up to a maximum of 20 appointments. The data comes from all [facility] facilities. Appointment Date/Time Appointment Type Appointme nt Facility Name Dec 12, 2024 01:00 [facility] Jan 11, 2025 10:00 AM [facility] February 07, 2025 10:00 AM AMBULATORY - NONE [facility] Active, Pending, and Scheduled Orders This section includes a listing of several types of active, pending, and scheduled orders, including clinic medications orders, diagnostic test orders, procedure orders and consult orders; where the start date of the order is 45 days before the date of the Encounter or 45 days after the date of theEncounter. The data comes from all [facility]. Test Date/Time Test Type Test Details Facility Name Dec 07, 2024 09:28 AM Consult Order COMMUNITY CARE-DS ROUTINE OPT Cons Machine Stacker's Choice [facility] Dec 28, 2024 02:00 PM Consult Order COMMUNITY CARE-DS ROUTINE AUD Cons [facility] Lab Results: +/- 30 days of the encounter This section includes the Chemistry and Hematology Lab Results on record with [place] for the patient. Radiology Reports and Pathology Reports are provided separately, in subsequent sections. Lab Results This section contains the Chemistry/Hematology Results that were resulted 30 days before or 30 daysafter the date of the Encounter. Date/Time Source Result Type Result - Unit Interpretation Reference Range Specimen Type Comment Nov 09, 2024 12:00 AM [facility] N OCCULT BLOOD FIT X1 SCREEN FECES Specimen Typ e: FECES No comment entered. Ordering Provider: ULICES GREENFIELD Report Released Date/Time: Oct 20, 2024 09:44 AM Reporting Lab: [address] [id number] Performing Lab: [address] [id number] OCCULT BLOOD (FIT) #1 OF 1 Negative Nega tive Vital Signs: All taken on the encounter date This section contains inpatient and outpatient Vital Signs collected on the date of the Encounter. Date/Time Temperature Pulse Blood Pressure Respiratory Rate SP02 Pain Height Weight Body Mass Index Source Nov 30, 2024 09:29 AM 98 91 108/70 12 97 0 245.2 32 [place] [facility] Encounter Notes: All associated encounter notes This section contains the clinical notes associated to the Encounter. Date/Time Encounter Note(s) Provider Source Nov 30, 2024 12:35 PM NONVA NOTE: LOCAL TITLE: COMMUNITY CARE-CARE COORDINATION PLAN NOTE STANDARD TITLE: NONVA NOTE DATE OF NOTE: NOV 30, 2024@12:35 ENTRY DATE: NOV 30, 2024@12:35:37 AUTHOR: LENIN COLLINS EXP COSIGNER: URGENCY: STATUS: COMPLETED COMMUNITY CARE-CARE COORDINATION PLAN NOTE Has ADDENDA Community Care Consult: Consult No: [id number] [facility] Referral #: Chief Complaint: Chief Complaint: paroxysmal atrial fibrillation Patient Admitted? No Level of Care Coordination Moderate Care Coordination was determined from: Chart Review Facility Community Care Office Contact Care Coordination Point of Contact: Lenin Phone Number: [phone] Services: Basic Care Coordination Services Monitoring and coordination of Rehab/PT Services Direct communication to referring provider Care management, if appropriate Plan: Chart reviewed. Community care consult processed and sent to [facility] for scheduling and assigning of auth. /amy COLLINS MSN, RN CLINICAL REVIEW NURSE Signed: 11/30/2024 12:36 11/30/2024 ADDENDUM STATUS: COMPLETED Episode of Care Complete This is a continuation of care /amy MARIO, RN CLINICAL REVIEW NURSE Signed: 11/30/2024 12:37 [facility]INS [facility]
--- OUTSIDE RECORDS SUMMARY | 2025-01-11 20:45 | XMS_ITS ---
Author Name [facility] [place] [facility] [place] [facility] [place] [facility] [place] Address [address] [place] [address] Care Team Providers Care Primary Health Organisation Manager Name Role Phone BRITTANY BUCHANAN Primary Care Provider Unavailabl e ULICES GREENFIELD [...] Policy Pérez AETNA VISION AETNA VISIO N [facility] Jan 02, 2022 [id number] [facility] [phone] ROME,PH ILLIP PATIENT AETNA VISION VISION AETNA VISIO N [facility] R Jan 02, 2022 [id number] [phone] ROME,PH ILLIP PATIENT [facility] TRICA RE DODA Oct 04, 2017 DODA [id number] ROME,PH ILLIP PATIENT (WNR) NONBI LLABL E Sep 03, 2010 NONBILL ABLE [id number] ROME,PH ILLIP PATIENT [facility] 2024 TRICA RE SELEC T Oct 04, 2024 [facility] [id number] ROME,PH ILLIP PATIENT [facility] 2024 JACKY Carbone WNR Oct 04, 2024 [facility] [id number] ROME,PH ILLIP PATIENT Selected Encounter This section includes the information on record at [place] for the Encounter. Date/Time Encounter Type Encounter Description Reason Provider Source Nov 30, 2024 09:30 AM OFF/OP CNSLTJ NEW/EST MOD 40 CARDIOLOGY ICD-10-CM I48.0 Paroxysmal atrial fibrillation MECHE DENNEYMONTRELL Cazares IHLynnette Encounter Template Text not used by [place] Assessments - Encounter Diagnoses This section includes the primary and secondary diagnoses documented for the Encounter. Date/Time Primary/Secondary Diagnosis Diagnosis Name Provider Source Nov 30, 2024 09:43 AM PRIMARY Paroxysmal atrial fibrillation JACLYN GUNTER [facility] Nov 30, 2024 09:43 AM SECONDARY Other hyperlipidemia JACLYN GUNTER [facility] Plan of Treatment: Future Appointments (+ 6 months) and Future Tests (+/- 45 days) The Plan of Treatment section includes future care activities for the patient [facility] [place] [facility] This section includes future appointments and future orders which are active, pending or scheduled. Future Appointments This section includes appointments that were scheduled to occur 6 months from the date of the Encounter, up to a maximum of 20 appointments. The data comes from all [facility]. Appointment Date/Time Appointment Type Appointme nt Facility Name Dec 12, 2024 01:00 PM AMBULATORY - NONE [facility] Jan 11, 2025 10:00 AM AMBULATORY - NONE [facility] February 07, 2025 10:00 AM AMBULATORY - NONE [facility] Active, Pending, and Scheduled Orders This section includes a listing of several types of active, pending, and scheduled orders, including clinic medications orders, diagnostic test orders, procedure orders and consult orders; where the start date of the order is 45 days before the date of the Encounter or 45 days after the date of theEncounter. The data comes from all [facility]. Test Date/Time Test Type Test Details Facility Name Dec 07, 2024 09:28 AM Consult Order COMMUNITY CARE-DS ROUTINE OPT Cons Associate Teacher's Choice [facility] Dec 28, 2024 02:00 PM Consult Order COMMUNITY CARE-DS ROUTINE AUD Cons Associate Teacher's Choice [facility] Lab Results: +/- 30 days of the encounter This section includes the Chemistry and Hematology Lab Results on record with [facility] for the patient. Radiology Reports and Pathology Reports are provided separately, in subsequent sections. Lab Results This section contains the Chemistry/Hematology Results that were resulted 30 days before or 30 daysafter the date of the Encounter. Date/Time Source Result Type Result - Unit Interpretation Reference Range Specimen Type Comment Nov 09, 2024 12:00 AM [facility]CCULT [facility] FIT X1 SCREEN FECES Specimen Typ e: FECES No comment entered. Ordering Provider: ULICES GREENFIELD Report Released Date/Time: Oct 20, 2024 09:44 AM Reporting Lab: [address] [id number] Performing Lab: [address] [address] OCCULT BLOOD (FIT) #1 OF 1 Negative Nega tive Encounter Notes: All associated encounter notes This section contains the clinical notes associated to the Encounter. Date/Time Encounter Note(s) Provider Source Dec 14, 2024 11:41 AM ADDENDUM: LOCAL TITLE: Addendum STANDARD TITLE: ADDENDUM DATE OF NOTE: DEC 14, 2024@11:41:23 ENTRY DATE: DEC 14, 2024@11:41:24 AUTHOR: GERMAIN FORTE EXP COSIGNER: URGENCY: STATUS: COMPLETED I called [facility]'s Medical Records Department, I was told that the Holter Monitor testing finished on 12/12/2024, it will be about 1 week before that test is resulted, they have the request for this record [facility] to the [facility]. /emani/ Germain Forte RN IR RN Signed: 12/14/2024 11:44 Receipt Acknowledged By: 12/14/2024 12:18 /emani/ MIRANDA PAINTING RN --- Original Document --- 11/30/24 CARDIOLOGY CONSULT REPONSE: CARDIOLOGY CLINIC NOTE Reason for visit: Cardiology new patient / establish care HPI: MEGHANN ROME is a 59 year old MALE with hx of NEPTALI, hyperlipidemia, paroxysmal atrial fibrillation and underwent cardioversion 2015, and has been doing well until he had progressive shortness of breath with exertion over the course of 2-3 weeks so he presented to a local ED on Oct 14, and was found to be in atrial fibrillation with RVR and had some mild pulmonary congestion so he was given a dose of IV Lasix, and was started on Eliquis. He presents today to establish care at [place] [facility]. He was provided with a 14 day event monitor at the outside facility and has returned it yesterday. He reports since discharged from the ED, he been feeling well, he reports that his breathing had improved. ROS: Reviewed and negative except as listed above in HPI. PMHx: Active problems - Computerized Problem List is the source for the followin. Acute combined systolic and diastolic heart failure 2. Lumbar spondylosis 3. Exposure to potentially hazardous substance ([facility] [id number]) 4. History of malignant basal cell neoplasm of skin 5. Paroxysmal atrial fibrillation 6. Chews tobacco 7. Obstructive sleep apnea 8. Osteoarthritis of bilateral hip joints 9. Hyperlipidemia PSHx: reviewed Social Hx: reviewed Family Hx: reviewed Medications: Active Outpatient Medications (including Supplies): Active Outpatient Medications Status = 1) GAUZE,PETROLATUM 3IN X 9IN USE GAUZE AFFECTED AREA TWICE A ACTIVE DAY APPLY TO FOOT WOUND Indication: FOR WOUND CARE. Active Non-VA Medications Status = 1) Non-VA APIXABAN 5MG TAB 5MG MOUTH TWICE A DAY ACTIVE Indication: TO THIN BLOOD 2) Non-VA FUROSEMIDE 40MG TAB 40MG MOUTH DAILY ACTIVE Indication: FOR FLUID 3) Non-VA METOPROLOL SUCCINATE 200MG SA TAB 100MG MOUTH DAILY ACTIVE Indication: FOR BLOOD PRESSURE/HEART 4) Non-VA ROSUVASTATIN TAB 40MG MOUTH AT BEDTIME ACTIVE Indication: FOR CHOLESTEROL 5 Total Medications Allergies/Adverse Reactions: Patient has answered NKA Relevant Imaging/Procedures: reviewed Physical Exam: Vitals: TEMP: 98 F [36.7 C] (11/30/2024 09:29) PULSE:91 (11/30/2024 09:29) BP: 108/70 (11/30/2024 09:29) RESP: 12 (11/30/2024 09:29) Pulse Ox: NOV 30, 2024@09:29:56 -- PULSE OXIMETRY: 97 WT: 245.2 lb [111.22 kg] (11/30/2024 09:29) Gen: A&Ox3, NAD HEENT: Normocephalic/Atraumatic, MMM Neck: Supple, no JVD Pulm: Normal work of breathing, CTA bilaterally with no wheezes or crackles CV: RRR, normal S1/S2, no m/r/g Abd: Soft, NT/ND Extr: Warm to touch, no LE edema, distal pulses intact and symmetric in upper and lower extremities Neuro: No gross focal deficits, normal speech Psych: Normal affect, answers questions appropriately Assessment/Plan: MEGHANN ROME is a 59 year old MALE with a past medical history as described above who presented today to [facility] care. Paroxysmal atrial fibrillation: -TSH within normal (2.2) last month -continue Metoprolol XL for rate control, and apixaban for anticoagulation, already enrolled with the anticoagulation clinic -will contact [facility] to obtain the results of the Holter monitor -he prefers to get a TTE as [facility]ITC and follow up with [facility] cardiology (consults placed) Hyperlipidemia, other: -LDL 122 last month, would recommend to add Zetia 10 mg daily for a target LDL<100 RTC as needed Total time spent on visit today including reviewing history, performing an exam and evaluation, documenting in EHR, interpreting results, counseling patient,and care coordination: 50 minutes /emani/ JACLYN GUNTER Attending Physician, Interventional Cardiology Signed: 11/30/2024 10:27 12/06/2024 ADDENDUM STATUS: COMPLETED Alex exited clinic per MD. All medications and treatment plan was discussed with prior to exiting clinic by provider. prefers to follow-up with [facility] Cardiology. Continue Metoprolol XL for rate control, and apixaban for anticoagulation, already enrolled with the anticoagulation clinic, will contact [facility] to obtain the results of the Holter monitor, he prefers to get a TTE as [facility] and follow up with [facility] cardiology (consults placed). Per provider order/instruction above. If this provider is not available or requires overbook please alert Supervising Chef. Appointment letter to be mailed. a) to be scheduled for interrogation same day as follow up appt. b) Results of testing ordered have been alerted automatically to provider to follow up and notify of results. C) Alerting PCP for awareness of above recs by MD. /emani/ Germain Forte RN IR RN Signed: 12/06/2024 10:04 Receipt Acknowledged By: 12/07/2024 09:32 /es/ ULICES GREENFIELD PATio 12/06/2024 15:19 /es/ Tierra Galo MSA/NA 12/06/2024 10:08 /es/ LYNNETTE PAINTING RN, BSN [facility] [employer] [employer] Dec 06, 2024 09:59 AM ADDENDUM: LOCAL TITLE: Addendum STANDARD TITLE: ADDENDUM DATE OF NOTE: DEC 06, 2024@09:59:44 ENTRY DATE: DEC 06, 2024@09:59:46 AUTHOR: GERMAIN FORTE EXP COSIGNER: URGENCY: STATUS: COMPLETED SUBJECT: Exit Note Alex exited clinic per MD. All medications and treatment plan was discussed with prior to exiting clinic by provider. Alex prefers to follow-up with [facility] Cardiology. Continue Metoprolol XL for rate control, and apixaban for anticoagulation, already enrolled with the anticoagulation clinic, will contact [facility] to obtain the results of the Holter monitor, he prefers to get a TTE as [facility] and follow up with [facility] cardiology (consults placed). Per provider order/instruction above. If this provider is not available or requires overbook please alert Supervising Chef. Appointment letter to be mailed. a) to be scheduled for interrogation same day as follow up appt. b) Results of testing ordered have been alerted automatically to provider to follow up and notify of results. C) Alerting PCP for awareness of above recs by . /es/ Germain Forte RN IR RN Signed: 12/06/2024 10:04 Receipt Acknowledged By: 12/07/2024 09:32 /es/ ULICES GREENFIELD PA-C 12/06/2024 15:19 /es/ Tierra Galo MSA/SNOW 12/06/2024 10:08 /es/ LYNNETTE PAITNING RN, BSN [facility] [employer] [employer] --- Original Document --- 11/30/24 CARDIOLOGY CONSULT REPONSE: CARDIOLOGY CLINIC NOTE Reason for visit: Cardiology new patient / establish care HPI: MEGHANN ROME is a 59 year old MALE with hx of NEPTALI, hyperlipidemia, paroxysmal atrial fibrillation and underwent cardioversion 2015, and has been doing well until he had progressive shortness of breath with exertion over the course of 2-3 weeks so he presented to a local ED on Oct 14, and was found to be in atrial fibrillation with RVR and had some mild pulmonary congestion so he was given a dose of IV Lasix, and was started on Eliquis. He presents today to establish care at [place] [facility]. He was provided with a 14 day event monitor at the outside facility and has returned it yesterday. He reports since discharged from the ED, he been feeling well, he reports that his breathing had improved. ROS: Reviewed and negative except as listed above in HPI. PMHx: Active problems - Computerized Problem List is the source for the followin. Acute combined systolic and diastolic heart failure 2. Lumbar spondylosis 3. Exposure to potentially hazardous substance ([facility] [id number]) 4. History of malignant basal cell neoplasm of skin 5. Paroxysmal atrial fibrillation 6. Chews tobacco 7. Obstructive sleep apnea 8. Osteoarthritis of bilateral hip joints 9. Hyperlipidemia PSHx: reviewed Social Hx: reviewed Family Hx: reviewed Medications: Active Outpatient Medications (including Supplies): Active Outpatient Medications Status = 1) GAUZE,PETROLATUM 3IN X 9IN USE GAUZE AFFECTED AREA TWICE A ACTIVE DAY APPLY TO FOOT WOUND Indication: FOR WOUND CARE. Active Non-VA Medications Status = 1) Non-VA APIXABAN 5MG TAB 5MG MOUTH TWICE A DAY ACTIVE Indication: TO THIN BLOOD 2) Non-VA FUROSEMIDE 40MG TAB 40MG MOUTH DAILY ACTIVE Indication: FOR FLUID 3) Non-VA METOPROLOL SUCCINATE 200MG SA TAB 100MG MOUTH DAILY ACTIVE Indication: FOR BLOOD PRESSURE/HEART 4) Non-VA ROSUVASTATIN TAB 40MG MOUTH AT BEDTIME ACTIVE Indication: FOR CHOLESTEROL 5 Total Medications Allergies/Adverse Reactions: Patient has answered NKA Relevant Imaging/Procedures: reviewed Physical Exam: Vitals: TEMP: 98 F [36.7 C] (11/30/2024 09:29) PULSE:91 (11/30/2024 09:29) BP: 108/70 (11/30/2024 09:29) RESP: 12 (11/30/2024 09:29) Pulse Ox: NOV 30, 2024@09:29:56 -- PULSE OXIMETRY: 97 WT: 245.2 lb [111.22 kg] (11/30/2024 09:29) Gen: A&Ox3, NAD HEENT: Normocephalic/Atraumatic, MMM Neck: Supple, no JVD Pulm: Normal work of breathing, CTA bilaterally with no wheezes or crackles CV: RRR, normal S1/S2, no m/r/g Abd: Soft, NT/ND Extr: Warm to touch, no LE edema, distal pulses intact and symmetric in upper and lower extremities Neuro: No gross focal deficits, normal speech Psych: Normal affect, answers questions appropriately Assessment/Plan: MEGHANN ROME is a 59 year old MALE with a past medical history as described above who presented today to establish care. Paroxysmal atrial fibrillation: -TSH within normal (2.2) last month -continue Metoprolol XL for rate control, and apixaban for anticoagulation, already enrolled with the anticoagulation clinic -will contact [facility] to obtain the results of the Holter monitor -he prefers to get a TTE as [facility] and follow up with [facility] cardiology (consults placed) Hyperlipidemia, other: -LDL 122 last month, would recommend to add Zetia 10 mg daily for a target LDL<100 RTC as needed Total time spent on visit today including reviewing history, performing an exam and evaluation, documenting in EHR, interpreting results, counseling patient,and care coordination: 50 minutes /emnai/ JACLYN GUNTER Attending Physician, Interventional Cardiology Signed: 11/30/2024 10:27 [facility] Nov 30, 2024 09:41 AM CARDIOLOGY CONSULT : LOCAL TITLE: CARDIOLOGY CONSULT REPONSE STANDARD TITLE: CARDIOLOGY CONSULT DATE OF NOTE: NOV 30, 2024@09:41 ENTRY DATE: NOV 30, 2024@09:41:19 AUTHOR: JACLYN GUNTER EXP COSIGNER: URGENCY: STATUS: COMPLETED CARDIOLOGY CONSULT REPONSE Has ADDENDA CARDIOLOGY CLINIC NOTE Reason for visit: Cardiology new patient / establish care HPI: MEGHANN ROME is a 59 year old MALE with hx of NEPTALI, hyperlipidemia, paroxysmal atrial fibrillation and underwent cardioversion 2015, and has been doing well until he had progressive shortness of breath with exertion over the course of 2-3 weeks so he presented to a local ED on Oct 14, and was found to be in atrial fibrillation with RVR and had some mild pulmonary congestion so he was given a dose of IV Lasix, and was started on Eliquis. He presents today to establish care at [facility]. He was provided with a 14 day event monitor at the outside facility and has returned it yesterday. He reports since discharged from the ED, he been feeling well, he reports that his breathing had improved. ROS: Reviewed and negative except as listed above in HPI. PMHx: Active problems - Computerized Problem List is the source for the followin. Acute combined systolic and diastolic heart failure 2. Lumbar spondylosis 3. Exposure to potentially hazardous substance ([facility] [id number]) 4. History of malignant basal cell neoplasm of skin 5. Paroxysmal atrial fibrillation 6. Chews tobacco 7. Obstructive sleep apnea 8. Osteoarthritis of bilateral hip joints 9. Hyperlipidemia PSHx: reviewed Social Hx: reviewed Family Hx: reviewed Medications: Active Outpatient Medications (including Supplies): Active Outpatient Medications Status = 1) GAUZE,PETROLATUM 3IN X 9IN USE GAUZE AFFECTED AREA TWICE A ACTIVE DAY APPLY TO FOOT WOUND Indication: FOR WOUND CARE. Active Non-VA Medications Status = 1) Non-VA APIXABAN 5MG TAB 5MG MOUTH TWICE A DAY ACTIVE Indication: TO THIN BLOOD 2) Non-VA FUROSEMIDE 40MG TAB 40MG MOUTH DAILY ACTIVE Indication: FOR FLUID 3) Non-VA METOPROLOL SUCCINATE 200MG SA TAB 100MG MOUTH DAILY ACTIVE Indication: FOR BLOOD PRESSURE/HEART 4) Non-VA ROSUVASTATIN TAB 40MG MOUTH AT BEDTIME ACTIVE Indication: FOR CHOLESTEROL 5 Total Medications Allergies/Adverse Reactions: Patient has answered NKA Relevant Imaging/Procedures: reviewed Physical Exam: Vitals: TEMP: 98 F [36.7 C] (11/30/2024 09:29) PULSE:91 (11/30/2024 09:29) BP: 108/70 (11/30/2024 09:29) RESP: 12 (11/30/2024 09:29) Pulse Ox: NOV 30, 2024@09:29:56 -- PULSE OXIMETRY: 97 WT: 245.2 lb [111.22 kg] (11/30/2024 09:29) Gen: A&Ox3, NAD HEENT: Normocephalic/Atraumatic, MMM Neck: Supple, no JVD Pulm: Normal work of breathing, CTA bilaterally with no wheezes or crackles CV: RRR, normal S1/S2, no m/r/g Abd: Soft, NT/ND Extr: Warm to touch, no LE edema, distal pulses intact and symmetric in upper and lower extremities Neuro: No gross focal deficits, normal speech Psych: Normal affect, answers questions appropriately Assessment/Plan: MEGHANN ROME is a 59 year old MALE with a past medical history as described above who presented today to establish care. Paroxysmal atrial fibrillation: -TSH within normal (2.2) last month -continue Metoprolol XL for rate control, and apixaban for anticoagulation, already enrolled with the anticoagulation clinic -will contact [facility] to obtain the results of the Holter monitor -he prefers to get a TTE as [facility] and follow up with [facility] cardiology (consults placed) Hyperlipidemia, other: -LDL 122 last month, would recommend to add Zetia 10 mg daily for a target LDL<100 RTC as needed Total time spent on visit today including reviewing history, performing an exam and evaluation, documenting in EHR, interpreting results, counseling patient,and care coordination: 50 minutes /emani/ JACLYN GUNTER Attending Physician, Interventional Cardiology Signed: 11/30/2024 10:27 12/06/2024 ADDENDUM STATUS: COMPLETED Alex exited clinic per MD. All medications and treatment plan was discussed with prior to exiting clinic by provider. Alex prefers to follow-up with [facility] Cardiology. Continue Metoprolol XL for rate control, and apixaban for anticoagulation, already enrolled with the anticoagulation clinic, will contact [facility] to obtain the results of the Holter monitor, he prefers to get a TTE as [facility] and follow up with [facility] cardiology (consults placed). Per provider order/instruction above. If this provider is not available or requires overbook please alert Supervising Chef. Appointment letter to be mailed. a) Alex to be scheduled for interrogation same day as follow up appt. b) Results of testing ordered have been alerted automatically to provider to follow up and notify of results. C) Alerting PCP for awareness of above recs by MD. /emani/ Germain Forte RN IR RN Signed: 12/06/2024 10:04 Receipt Acknowledged By: 12/07/2024 09:32 /es/ ULICES GREENFIELD PA-C 12/06/2024 15:19 /es/ Tierra Galo MSA/NA 12/06/2024 10:08 /es/ LYNNETTE PAINTING RN, BSN [facility] [employer] [employer] 12/14/2024 ADDENDUM STATUS: COMPLETED I called [facility]'s Medical Records Department, I was told that the Holter Monitor testing finished on 12/12/2024, it will be about 1 week before that test is resulted, they have the request for this record to be sent to the [place]. /emani/ Germain Forte RN IR RN Signed: 12/14/2024 11:44 Receipt Acknowledged By: * AWAITING SIGNATURE * MIRANDA PAINTING ISLAM Y [place] Nov 30, 2024 09:31 AM NURSING OUTPATIENT NOTE: LOCAL TITLE: [facility] MEDICINE CLINIC INTAKE NOTE STANDARD TITLE: NURSING OUTPATIENT NOTE DATE OF NOTE: NOV 30, 2024@09:31 ENTRY DATE: NOV 30, 2024@09:31:33 AUTHOR: LONG,DARIN F EXP COSIGNER: URGENCY: STATUS: COMPLETED Reason for visit/chief complaint: Follow up B/P: 108/70 (11/30/2024 09:29) P: 91 (11/30/2024 09:29) R: 12 (11/30/2024 09:29) T: 98 F [36.7 C] (11/30/2024 09:29) HT: 74 in [188.0 cm] (10/20/2024 08:53) WT: 245.2 lb [111.22 kg] (11/30/2024 09:29) Are you having any pain or recurrent pain in the last several weeks/months? No Location: Duration: Characteristics: Pain education material offered to patient (for pain > 3) No Risk factors history: Hypertension No BP Rechecked No Comments: Patient notified grand scribe available upon request for any examinations/procedures. The patient was given a list of his/her medications, instructed to review and discuss any changes or problems with their provider. Patient advised to carry a list of current medications and any allergies with them in the event of emergency situations. Allergies: local and remote Patient has answered A FACILITY ALLERGY/ADR -------- 636^[facility]^636ATORVASTATIN Medication Reconciliation ACTIVE OUTPATIENT MEDICATIONS LOCAL/REMOTE GAUZE,PETROLATUM 3IN X 9IN Directions: USE GAUZE AFFECTED AREA TWICE A DAY FOR WOUND CARE. APPLY TO FOOT WOUND Quantity: 12 for 30 days Issued: 05/02/24 Filled: 05/03/24 Expires: 05/03/25 Refills: 2 Status: ACTIVE No remote medications found. PENDING OUTPATIENT MEDICATONS (LOCAL/REMOTE): No local medications found. No remote medications found. ACTIVE NONVA MEDICATIONS (LOCAL): APIXABAN 5MG TAB Directions: 5MG MOUTH TWICE A DAY Status: ACTIVE FUROSEMIDE 40MG TAB Directions: 40MG MOUTH DAILY Status: ACTIVE METOPROLOL SUCCINATE 200MG SA TAB Directions: 100MG MOUTH DAILY Status: ACTIVE ROSUVASTATIN TAB Directions: 40MG MOUTH AT BEDTIME Status: ACTIVE OUTPATIENT MEDICATIONS (LOCAL)WITHIN 90 DAYS: ALBENDAZOLE 200MG TAB Directions: TAKE TWO TABLETS BY MOUTH ONCE FOR INFECTION -TAKE WITH FOOD Quantity: 2 for 1 days Issued: 08/04/24 Filled: 08/04/24 Expires: 09/03/24 Refills: 0 Status: DISCONTINUED OUTPATIENT MEDICATIONS (LOCAL) WITHIN 90 DAYS: No local medications found. CLINIC MEDICATIONS (LOCAL): No local medications found. Reviewed current medications with patient/signficant other, patient/significant other reports patient taking ALL VA, Non VA & OTC medications as listed on CPRS medication tab outpatient section. Yes *Printed copy of medication list provided to patient and reviewed. Yes *Explained to the patient the importance of keeping providers updated on medication changes and to carrying an updated list of medication at all times in case of an emergency situation. Yes /emani/ CAN RILEY, ASSET PROTECTION LEAD RN, CARDIAC CATHETERIZATION LAB Signed: 11/30/2024 09:33 D[facility]IN [facility]
--- OUTSIDE RECORDS SUMMARY | 2025-01-11 20:45 | XMS_ITS | Encounter Summary ---
Author Name [facility] of [facility] [place] Organization [facility] [place] [place] Address [address] [place] [address] Care Team Providers Care Fuel [place] Attendant Name Role Phone BRITTANY BUCHANAN Primary Care [...] Policy Pérez AETNA VISION AETNA VISIO N [facility] Jan 02, 2022 [id number] [facility] [phone] [place] ILL[place] PATIENT AETNA VISION VISION AETNA VISIO N [facility] Jan 02, 2022 [id number] [place],PH ILLIP PATIENT [employer] TRICA RE DODA Oct 04, 2017 DODA [id number] [place]OME,PH ILLIP PATIENT (WNR) NONBI LLABL E Sep 03, 2010 NONBILL ABLE [id number] [place],PH ILLIP PATIENT [facility] 2024 TRICA RE SELEC T Oct 04, 2024 [facility] [id number] [place],PH ILLIP PATIENT [facility] 2024 JACKY Carbone WNR Oct 04, 2024 [facility] [id number] 43 [place] ILLIP PATIENT Selected Encounter This section includes the information on record at [place] for the Encounter. Date/Time Encounter Type Encounter Description Reason Pro vider Source Dec 28, 2024 12:23 PM Outpatient Encounter ADMIN PAT ACTIVTIES (MASNONCT) IHE Encounter Template Text not used by [place] Plan of Treatment: Future Appointments (+ 6 months) and Future Tests (+/- 45 days) The Plan of Treatment section includes future care activities for the patient from all [place] treatment[facility]. This section includes future appointments and future orders which are active, pending or scheduled. Future Appointments This section includes appointments that were scheduled to occur 6 months from the date of the Encounter, up to a maximum of 20 appointments. The data comes from all [place] treatment facilities. Appointment Date/Time Appointment Type Appointme nt Facility Name Jan 11, 2025 10:00 AM AMBULATORY - NONE [facility] February 07, 2025 10:00 AM AMBULATORY - NONE [facility] Active, Pending, and Scheduled Orders This section includes a listing of several types of active, pending, and scheduled orders, including clinic medications orders, diagnostic test orders, procedure orders and consult orders; where the start date of the order is 45 days before the date of the Encounter or 45 days after the date of theEncounter. The data comes from all [place] treatment facilities. Test Date/Time Test Type Test Details Facility Name Dec 07, 2024 09:28 AM Consult Order COMMUNITY CARE-DS ROUTINE OPT Cons Tenter Frame Back Tender's Choice [facility] Dec 28, 2024 02:00 PM Consult Order COMMUNITY CARE-DS ROUTINE AUD Cons Tenter Frame Back Tender[facility] Choice [facility] Encounter Notes: All associated encounter notes This section contains the clinical notes associated to the Encounter. Date/Time Encounter Note(s) Provider Source Dec 28, 2024 12:23 PM [facility] DIALOG NOTE: LOCAL TITLE: ViralizeAGING STANDARD TITLE: [facility] DIALOG NOTE DATE OF NOTE: DEC 28, 2024@12:23 ENTRY DATE: DEC 28, 2024@12:23:42 AUTHOR: JOSE NAZARIO EXP COSIGNER: URGENCY: STATUS: COMPLETED ------Original Message ------- Sent: 12/28/2024 12:23 PM ET From: JOSE NAZARIO To: PARESH ROME Subject: General:ARE YOU SCHEDULED YET? Department of [facility] [place] [address] December Paresh Rome [address] [place] [address] ICN: [id number] Dear [place], Your VA Health Care Provider has ordered medically necessary health care services that are not available at [place]. This letter is to notify you that service for OPTOMETRY has been referred to the local Community Care Department to coordinate your care with a community provider at [place] expense. Our [place] Community Care Team has made attempt(s) to contact you by phone regarding scheduling. Unfortunately, we've been unable to reach you. If you have questions regarding the referral or would like to schedule these authorized community care services, please contact the [place] Facility Community Care Office at [phone] ext. [phone]. If we do not hear from you within 14 calendar days from the date of this letter, the authorization for these services will be discontinued and returned to your VA provider. Thank you for the opportunity to serve you. [place] [id number] COM /emani/ JOSE NAZARIO MEDIA PRODUCTION MANAGER Signed: 12/28/2024 12:23 JOSE NAZARIO [facility]
--- OUTSIDE RECORDS SUMMARY | 2025-01-11 20:45 | XMS_ITS | Encounter Summary ---
Author Name [facility] [place] Organization [place] Address [address] [place] [address] Care Team Providers Care Paint Line Supervisor Name Role Phone CHANEL BRITTANY Primary Care [...] Policy Pérez AETNA VISION AETNA VISIO N [facility] Jan 02, 2022 [id number] [facility] [phone] [place] ILLIP PATIENT AETNA VISION VISION AETNA VISIO N [facility] Jan 02, 2022 [id number] [place],PH ILLIP PATIENT [employer] TRICA RE DODA Oct 04, 2017 D[facility] [id number] [place],PH ILLIP PATIENT (WNR) NONBI LLABL E Sep 03, 2010 NONBILL ABLE [id number] [place],PH ILLIP PATIENT [facility] 2024 TRICA RE SELEC T Oct 04, 2024 [facility] [id number] [place],PH ILLIP PATIENT [facility] 2024 JACKY Cabrone WNR Oct 04, 2024 [facility] [id number] 43 [place],PH ILLIP PATIENT Selected Encounter This section includes the information on record at [place] for the Encounter. Date/Time Encounter Type Encounter Description Reason Provider Source Apr 18, 2024 10:28 AM Outpatient Encounter ADMIN PAT ACTIVTIES (MASNONCT) YENY LESTER [facility] Encounter Template Text not used by [place] Plan of Treatment: Future Appointments (+ 6 months) and Future Tests (+/- 45 days) The Plan of Treatment section includes future care activities for the patient from all [place] treatmentfacilities. This section includes future appointments and future orders which are active, pending or scheduled. Future Appointments This section includes appointments that were scheduled to occur 6 months from the date of the Encounter, up to a maximum of 20 appointments. The data comes from all [facility]. Appointment Date/Time Appointment Type Appointme nt Facility Name Apr 19, 2024 11:00 AM AM[facility]ATORY - NONE [facility] Apr 19, 2024 04:00 PM [facility]ORY - NONE [facility] [facility] May 02, 2024 09:00 AM AM[facility]ULATORY - SURGERY [facility] May 16, 2024 12:30 PM AMBULATORY - SURGERY [place] [facility] Aug 04, 2024 02:00 PM AMBULATORY - MEDICINE [facility] Radiology Reports: +/- 30 days of the encounter Radiology Reports For cases when an order for radiology services may have been completed prior to the date of the Encounter, the report list includes the Radiology Reports that were completed up to 30 days before dateof the Encounter. For cases when an order for radiology services may have been completed after the date of the Encounter, the report list also includes the Radiology Reports that were completed up to30 days after date of the Encounter. The data comes from all [facility]. Date/Time Radiology Report Provider Source Apr 19, 2024 10:43 AM U/S ABD COMPLETE: MEGHANN ROME [id number] -[id number] M Exm Date: APR 19, 2024@10:43 Req Phys: OK HENRY Pat Loc: [facility] ATKINSON (Req'g Loc) Img Loc: ULTRASOUND Service: [place] [address] (Case [id number] COMPLETE) U/S ABD COMPLETE (US Detailed) CPT:37545 Reason for Study: SEE CLINICAL HISTORY Clinical History: REASON FOR EXAM:Other (provide detailed justification for request) low platelets PERTINENT PATIENT HISTORY: PROVIDER [id number]# EMPHASIS ON LIVER/SPLEEN Report Status: Verified Date Reported: APR 19, 2024 Date Verified: APR 19, 2024 Web Services Developer E-Sig: Report: Abdomen ultrasound. Ultrasound performed and shows slightly echogenic liver. Negative for focal liver mass. Common bile duct not dilated. There is flow in the portal vein. Negative for ascites. Gallbladder does not show stones. Right kidney has a small cyst measuring 9.3 mm. Left kidney also shows a small cyst. This more exophytic cyst measures 2.3 x 1.6 cm. Kidneys do not show hydronephrosis. Negative for aneurysm. The spleen however is the mildly enlarged or borderline for splenomegaly. Length measures 13.9 cm. With 3.9 cm. Impression: Mild splenomegaly or borderline for splenomegaly. Primary Diagnostic Code: SIGNIFICANT ABNORMALITY, ATTN NEEDED Primary Interpreting Staff: DEVON BYRD, RADIOLOGIST Verified by insurance solicitor for DEVON BYRD /DEVON COTA-D [facility] Apr 18, 2024 07:17 AM FOOT-RIGHT 3 OR [place] RE VIEWS: MEGHANN ROME [id number] -[id number] M Exm Date: APR 18, 2024@07:17 Req Phys: CAROLANN KATZ Loc: [facility]/ATT1/LD (Req'g Loc) Img Loc: CDD RADIOLOGY Service: [place] [address] (Case [id number] COMPLETE) FOOT-RIGHT 3 OR MORE VIEWS (RAD Detailed) CPT:90091 Reason for Study: 1st toe trauma Clinical History: 1st toe trauma Report Status: Verified Date Reported: APR 18, 2024 Date Verified: APR 18, 2024 Web Services Developer E-Sig: Report: FOOT-RIGHT 3 OR MORE VIEWS HISTORY: 1st toe trauma COMPARISON: The exam from 10/05/2013 could not be retrieved. Comparison is made to the written report. TECHNIQUE: 3 view(s) of the right foot, submitted to the [place] National Teleradiology Program (NTP) for interpretation. FINDINGS: There is a soft tissue laceration involving the great toe. There is no foreign body identified in the soft tissues and there is no associated acute fracture. There is a plantar heel spur, not reported on the prior exam. There is a mild pes planus deformity, not reported on the prior exam. There are slight osteoarthritic changes in the right first MTP joint. Not reported on the prior exam. There is smooth cortical thickening along the mid shaft of the right second metatarsal bone which could indicate stress reaction or a developing stress fracture. There is no additional fracture or malalignment identified in the right foot. No significant soft tissue edema. No radiopaque foreign body. Impression: 1. Consider right second metatarsal bone stress fracture or stress reaction. 2. Right foot degenerative changes, not reported on the prior exam. READING PHYSICIAN: Nawaf Knox -[phone] 04/18/2024 12:42 CDT [facility] National Teleradiology Program [phone] (For Medical Practitioner Use Only) Attention Patients / Veterans: If you have questions or concerns about these test results, please contact your ordering provider or primary care team. Primary Diagnostic Code: NO ALERT REQUIRED Primary Interpreting Staff: OUTSIDE SERVICE RADIOLOGY, Staff Physician / RADIOLOGY,OUTSIDE SERVICE [facility] Pathology Reports: +/- 30 days of the encounter Pathology Reports For cases when an order for pathology services may have been completed prior to the date of the Encounter, the report list includes the Pathology Reports that were completed up to 30 days before dateof the Encounter. For cases when an order for pathology services may have been completed after the date of the Encounter, the report list also includes the Pathology Reports that were completed up to30 days after date of the Encounter. The data comes from all [place] treatment facilities. Date/Time Pathology Report Provider Source Apr 18, 2024 01:13 PM LR MICROBIOLOGY RE PORT: Reporting Lab: [facility] [CLIA# [id number]] [address] [place] [address] Accession [UID]: [id number] [[id number]] Received: Apr 18, 2024@13:13 Collection sample: SWAB Collection date: Apr 18, 2024 13:13 Site/Specimen: TOE, DORSAL SURFACE Provider: YENY LESTER Test(s) ordered: CULTURE, WOUND-SUPERFICIAL.... completed: Apr 22, 2024 * BACTERIOLOGY FINAL REPORT => Apr 22, 2024 11:19 TECH CODE: [id number] GRAM STAIN: RARE WBCS, NO ORGANISMS SEEN CULTURE RESULTS: 1. KLEBSIELLA AEROGENES 2. MYROIDES ODORATIMIMUS 3. PROTEUS VULGARIS GROUP ANTIBIOTIC SUSCEPTIBILITY TEST RESULTS: 1. KLEBSIELLA AEROGENES : 2. MYROIDES ODORATIMIMUS : : 3. PROTEUS VULGARIS GROUP : : : AMIKACIN.................. .... S R S AMOXICILLIN/CLAVULANATE... .... R S AMP/SULBACTAM............. .... R* I AMPICILLIN................ .... R* R AZTREONAM................. .... S R S CEFAZOLIN................. .... R R CEFEPIME.................. .... S R S CEFOTAXIME................ .... S R S CEFOXITIN................. .... R S CEFTAZIDIME............... .... S R S CEFTAZ/AVIBACTAM.......... .... S CEFTRIAXONE............... .... S R R CEFUROXIME................ .... S R CIPROFLOXACIN............. .... S S S ERTAPENEM................. .... S S GENTAMICIN................ .... S R S IMIPENEM.................. .... I LEVOFLOXACIN.............. .... S S S MEROPENEM................. .... S S S MEROPEN/VABORBACTAM....... .... S MOXIFLOXACIN.............. .... S S PIPER/TAZOBACTAM.......... .... S S S TETRACYCLINE.............. .... S S R* TIGECYCLINE............... .... S R* TOBRAMYCIN................ .... S R S TRIMETH/SULFA............. .... S S S Bacteriology Remark(s): CULTURE PENDING 04/19/2024 GRAM NEGATIVE RODS CULTURE PENDING 04/20/2024 =--=--=--=--=--=--=--=--=- -=--=--=--=--=--=--=--=--= --=--=--=--=--=--=--=--=-- Performing Laboratory: Bacteriology Report Performed By: [facility] [CLIA# [id number]] [address] [place] [address] [facility] Encounter Notes: All associated encounter notes This section contains the clinical notes associated to the Encounter. Date/Time Encounter Note(s) Provider Source Apr 18, 2024 10:28 AM PODIATRY TELEPHONE ENCOUNTER NOTE: LOCAL TITLE: PODIATRY TELEPHONE CARE NOTE STANDARD TITLE: PODIATRY TELEPHONE ENCOUNTER NOTE DATE OF NOTE: APR 18, 2024@10:28 ENTRY DATE: APR 18, 2024@10:28:19 AUTHOR: JACKIE MENG EXP COSIGNER: URGENCY: STATUS: COMPLETED PODIATRY TELEPHONE CARE NOTE Has ADDENDA Pt appt at [facility] today by clinic dt provider being out [facility] called to advise Pt should really be seen today for nail trauma and advised nail is coming off and bloody. Pt to come to [facility] and be added in as we can to be seen. Pt made way over from [facility]. /emani/ JACKIE MENG Signed: 04/18/2024 10:29 Receipt Acknowledged By: 04/19/2024 14:05 /emani/ CAROLANN KATZ Chief, Podiatry Section 04/19/2024 ADDENDUM STATUS: COMPLETED Date Verified: APR 18, 2024 Web Services Developer E-Sig: Report: FOOT-RIGHT 3 OR MORE VIEWS HISTORY: 1st toe trauma COMPARISON: The exam from 10/05/2013 could not be retrieved. Comparison is made to the written report. TECHNIQUE: 3 view(s) of the right foot, submitted to the [place] National Teleradiology Program (NTP) for interpretation. FINDINGS: There is a soft tissue laceration involving the great toe. There is no foreign body identified in the soft tissues and there is no associated acute fracture. There is a plantar heel spur, not reported on the prior exam. There is a mild pes planus deformity, not reported on the prior exam. There are slight osteoarthritic changes in the right first MTP joint. Not reported on the prior exam. There is smooth cortical thickening along the mid shaft of the right second metatarsal bone which could indicate stress reaction or a developing stress fracture. There is no additional fracture or malalignment identified in the right foot. No significant soft tissue edema. No radiopaque foreign body. Impression: 1. Consider right second metatarsal bone stress fracture or stress reaction. 2. Right foot degenerative changes, not reported on the prior exam. /emani/ CAROLANN KATZ Chief, Podiatry Section Signed: 04/19/2024 14:06 JACKIE MENG [facility]
--- OUTSIDE RECORDS SUMMARY | 2025-01-11 20:45 | XMS_ITS | Encounter Summary ---
Author Name [facility] [place] [facility] [place] [facility] [place] Address [address] [place] [address] Care Team Providers Care Building Energy Consultant Name Role Phone CHANEL BRITTANY Primary Care Provider Unavailabl e UMANG GREENFIELD Primary Care Provider Unavailabl e Insurance [...] Policy Pérez AETNA VISION AETNA VISIO N [facility] Jan 02, 2022 [id number] [place] PATIENT AETNA VISION VISION AETNA VISIO N [facility] Jan 02, 2022 [id number] [place] PATIENT [employer] TRICA RE DODA Oct 04, 2017 DODA [id number] [place] PATIENT (WNR) NONBI LLABL E Sep 03, 2010 NONBILL ABLE [id number] [place] PATIENT [facility] 2024 TRICA RE SELEC T Oct 04, 2024 [facility] [id number] [place] PATIENT [facility] 2024 JACKY Carbone WNR Oct 04, 2024 [facility] [id number] [phone] [place] PATIENT Selected Encounter This section includes the information on record at [place] for the Encounter. Date/Time Encounter Type Encounter Description Reason Provider Source Oct 20, 2024 09:00 AM OFFICE O/P EST MOD 30 MIN PRIMARY CARE/MEDICINE ICD-10-CM I48.0 Paroxysmal atrial fibrillation UMANG GREENFIELD [facility] Encounter Template Text not used by [place] Assessments - Encounter Diagnoses This section includes the primary and secondary diagnoses documented for the Encounter. 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 UMANG GREENFIELD [facility] Nov 06, 2024 06:52 AM SECONDARY Encounter for immunization GEOVANNI ALVARES [facility] Nov 06, 2024 06:52 AM SECONDARY Obstructive sleep apnea (adult) (pediatric) UMANG GREENFIELD [facility] Nov 06, 2024 06:52 AM SECONDARY Other hyperlipidemia UMANG GREENFIELD [facility] Plan of Treatment: Future Appointments (+ 6 months) and Future Tests (+/- 45 days) The Plan of Treatment section includes future care activities for the patient from all [place] treatmentfacilities. This section includes future appointments and future orders which are active, pending or scheduled. Future Appointments This section includes appointments that were scheduled to occur 6 months from the date of the Encounter, up to a maximum of 20 appointments. The data comes from all [place] treatment facilities. Appointment Date/Time Appointment Type Appointme nt Facility Name Oct 27, 2024 04:00 [facility] Oct 30, 2024 08:00 AM [facility] Nov 30, 2024 09:30 AM AMBULATORY - MEDICINE [facility] Dec 12, 2024 01:00 PM [facility]ORY [facility] Jan 11, 2025 10:00 AM AMBULATORY - NONE [facility] February 07, 2025 10:00 AM AMBULATORY - NONE [facility] Lab Results: +/- 30 days of the [...] Type Comment Nov 09, 2024 12:00 AM [facility] N OCCULT BLOOD FIT X1 SCREEN FECES Specimen Typ e: FECES No comment entered. Ordering Provider: UMANG GREENFIELD Report Released Date/Time: Oct 20, 2024 09:44 AM Reporting Lab: [address] [phone] Performing Lab: [address] [address] OCCULT BLOOD (FIT) #1 OF 1 Negative Nega tive Oct 20, 2024 09:47 AM [facility] B12 VITAMIN PLASMA Specimen Type: PLASM A Comment: Estimated Glomerular Filtration Rate (eGFR) calculated using the 2020 Chronic Kidney Disease-Epidemiology (CKD-EPI) Collaboration creatinine equation; units of measure are mL/min/1.73 m2. Results are only valid for adults (>=18 years) whose serum creatinine is in a steady state. eGFR calculations are not valid for patients with acute kidney injury and for patients on dialysis. Creatinine-based estimates of kidney function may also be inaccurate in patients with reduced creatinine generation due to decreased muscle mass (e.g., malnutrition, severe hypoalbuminemia, sarcopenia, chronic neuromuscular disease, amputations, severe heart failure or liver disease) and in patients with increased creatinine generation due to increased muscle mass (e.g., muscle builders, anabolic steroids) or increased dietary intake. As drug clearance is proportional to total GFR and not GFR indexed to body surface area (BSA), in individuals with a BSA substantially different than 1.73 m2, drug dosing should be based on the reported eGFR value de-indexed from BSA by multiplying by the individual's BSA and dividing by 1.73. CKD is diagnosed based on abnormalities of kidney structure or function, present for >3 months, with implications for health and disease. CKD is classified and staged based on cause, eGFR and albuminuria (quantified as urine albumin to creatinine ratio). An eGFR >60 mL/min/1.73 m2 in the absence of increased urine albumin excretion or structural abnormalities does not represent CKD. eGFR CKD Interpretation (mL/min/1.73 m2) stage >=90 G1 Normal 60-89 G2 Mild decrease 45-59 G3A Mild to moderate decrease 30-44 G3B Moderate to severe decrease 15-29 G4 Severe decrease <15 G5 Kidney failure Vitamin B12 test may not yield results when protein level of sample is too elevated. Ordering Provider: UMANG GREENFIELD Report Released Date/Time: Oct 20, 2024 09:44 AM Reporting Lab: [address] [phone] Performing Lab: [address] [address] B12 VITAMIN 402 pg/mL 213-816 Oct 20, 2024 09:47 AM [facility] PSA S SKYLA Specimen Type: SERUM No comment entered. Ordering Provider: UMANG GREENFIELD Report Released Date/Time: Oct 20, 2024 09:44 AM Reporting Lab: [address] [address] Performing Lab: [address] [address] PSA 1.710 ng/mL 0-3.999 Oct 20, 2024 09:47 AM [facility] BNP ([place]) PLASMA Specimen Type: PLASMA Comment: BNP results less than or equal to 100 pg/ml are instruments sales representative of normal values in patients without CHF. BNP results greater than 100 pg/ml are considered abnormal and suggestive of CHF. Higher BNP concentrations in the first 72 hours after Acute Coronary Syndrome are associated with an increased risk of , myocardial infarction and CHF. Ordering Provider: UMANG GREENFIELD Report Released Date/Time: Oct 20, 2024 09:44 AM Reporting Lab: [address] [address] Performing Lab: [address] [address] BNP (RAMÍREZ) 273 pg/mL H 0-100 Oct 20, 2024 09:47 AM [facility] LIPID PROFILE PLASMA Specimen Type: PLASM A Comment: Estimated Glomerular Filtration Rate (eGFR) calculated using the 2020 Chronic Kidney Disease-Epidemiology (CKD-EPI) Collaboration creatinine equation; units of measure are mL/min/1.73 m2. Results are only valid for adults (>=18 years) whose serum creatinine is in a steady state. eGFR calculations are not valid for patients with acute kidney injury and for patients on dialysis. Creatinine-based estimates of kidney function may also be inaccurate in patients with reduced creatinine generation due to decreased muscle mass (e.g., malnutrition, severe hypoalbuminemia, sarcopenia, chronic neuromuscular disease, amputations, severe heart failure or liver disease) and in patients with increased creatinine generation due to increased muscle mass (e.g., muscle builders, anabolic steroids) or increased dietary intake. As drug clearance is proportional to total GFR and not GFR indexed to body surface area (BSA), in individuals with a BSA substantially different than 1.73 m2, drug dosing should be based on the reported eGFR value de-indexed from BSA by multiplying by the individual's BSA and dividing by 1.73. CKD is diagnosed based on abnormalities of kidney structure or function, present for >3 months, with implications for health and disease. CKD is classified and staged based on cause, eGFR and albuminuria (quantified as urine albumin to creatinine ratio). An eGFR >60 mL/min/1.73 m2 in the absence of increased urine albumin excretion or structural abnormalities does not represent CKD. eGFR CKD Interpretation (mL/min/1.73 m2) stage >=90 G1 Normal 60-89 G2 Mild decrease 45-59 G3A Mild to moderate decrease 30-44 G3B Moderate to severe decrease 15-29 G4 Severe decrease <15 G5 Kidney failure Ordering Provider: UMANG GREENFIELD Report Released Date/Time: Oct 20, 2024 09:44 AM Reporting Lab: [address] [phone] Performing Lab: [address] [phone] CHOLESTEROL 163 mg/dL 0-199 TRIGLYCERIDE 166 mg/dL H 0-149 HDL CHOLESTEROL 28 mg/dL L 40-69 DIRECT LDL CHOL. 122 mg/dL H 0-100 Oct 20, 2024 09:47 AM [facility] CBC/PLT BLOOD Specimen Type: BLOOD No comment entered. Ordering Provider: UMANG GREENFIELD Report Released Date/Time: Oct 20, 2024 09:44 AM Reporting Lab: [address] [phone] Performing Lab: [address] [address] WBC 5.2 10*3/uL 5.0-10.0 RBC 5.64 10*6/uL 4.6-6.2 HGB 14.8 g/dL 14.0-18.0 HCT 46.5 42.0-52.0 MCV 82.4 fL 80.0-94.0 MCH 26.2 pg L 27.0-31.0 MCHC 31.8 g/dL L 32.0-36.0 PLT 211 10*3/uL 150-450 MPV 12.1 fL 9.0-13.1 RDW 13.1 11.0-16.0 NRBC 0.0 0.0-0.0 Oct 20, 2024 09:47 AM [facility] PANEL 5 PLASMA Specimen Type: PLASM A Comment: Estimated Glomerular Filtration Rate (eGFR) calculated using the 2020 Chronic Kidney Disease-Epidemiology (CKD-EPI) Collaboration creatinine equation; units of measure are mL/min/1.73 m2. Results are only valid for adults (>=18 years) whose serum creatinine is in a steady state. eGFR calculations are not valid for patients with acute kidney injury and for patients on dialysis. Creatinine-based estimates of kidney function may also be inaccurate in patients with reduced creatinine generation due to decreased muscle mass (e.g., malnutrition, severe hypoalbuminemia, sarcopenia, chronic neuromuscular disease, amputations, severe heart failure or liver disease) and in patients with increased creatinine generation due to increased muscle mass (e.g., muscle builders, anabolic steroids) or increased dietary intake. As drug clearance is proportional to total GFR and not GFR indexed to body surface area (BSA), in individuals with a BSA substantially different than 1.73 m2, drug dosing should be based on the reported eGFR value de-indexed from BSA by multiplying by the individual's BSA and dividing by 1.73. CKD is diagnosed based on abnormalities of kidney structure or function, present for >3 months, with implications for health and disease. CKD is classified and staged based on cause, eGFR and albuminuria (quantified as urine albumin to creatinine ratio). An eGFR >60 mL/min/1.73 m2 in the absence of increased urine albumin excretion or structural abnormalities does not represent CKD. eGFR CKD Interpretation (mL/min/1.73 m2) stage >=90 G1 Normal 60-89 G2 Mild decrease 45-59 G3A Mild to moderate decrease 30-44 G3B Moderate to severe decrease 15-29 G4 Severe decrease <15 G5 Kidney failure Ordering Provider: UMANG GREENFIELD Report Released Date/Time: Oct 20, 2024 09:44 AM Reporting Lab: [address] [phone] Performing Lab: [address] [phone] CREATININE 0.89 mg/dL 0.72-1.25 UREA NITROGEN 20 mg/dL 9-25 GLUCOSE 137 mg/dL H 74-100 SODIUM 142 mmol/L 136-145 POTASSIUM 4.0 mmol/L 3.5-5.1 CHLORIDE 102 mmol/L 98-107 CO2 30 mmol/L H 22-29 CALCIUM 9.7 mg/dL 8.4-10.2 TOTAL PROTEIN 7.3 g/dL 6.4-8.3 ALBUMIN 4.3 g/dL 3.5-5.2 TOTAL BILIRUBIN 0.5 mg/dL 0.2-1.2 AST 25 U/L 5-34 ALT 52 U/L 0-55 ANION GAP 10 meq/L 3-19 ALK PHOS 71 U/L 40-150 eGFR (CKD-EPI) >90 Oct 20, 2024 09:47 AM [facility] TSH PLASMA Specimen Type: PLASM A Comment: Estimated Glomerular Filtration Rate (eGFR) calculated using the 2020 Chronic Kidney Disease-Epidemiology (CKD-EPI) Collaboration creatinine equation; units of measure are mL/min/1.73 m2. Results are only valid for adults (>=18 years) whose serum creatinine is in a steady state. eGFR calculations are not valid for patients with acute kidney injury and for patients on dialysis. Creatinine-based estimates of kidney function may also be inaccurate in patients with reduced creatinine generation due to decreased muscle mass (e.g., malnutrition, severe hypoalbuminemia, sarcopenia, chronic neuromuscular disease, amputations, severe heart failure or liver disease) and in patients with increased creatinine generation due to increased muscle mass (e.g., muscle builders, anabolic steroids) or increased dietary intake. As drug clearance is proportional to total GFR and not GFR indexed to body surface area (BSA), in individuals with a BSA substantially different than 1.73 m2, drug dosing should be based on the reported eGFR value de-indexed from BSA by multiplying by the individual's BSA and dividing by 1.73. CKD is diagnosed based on abnormalities of kidney structure or function, present for >3 months, with implications for health and disease. CKD is classified and staged based on cause, eGFR and albuminuria (quantified as urine albumin to creatinine ratio). An eGFR >60 mL/min/1.73 m2 in the absence of increased urine albumin excretion or structural abnormalities does not represent CKD. eGFR CKD Interpretation (mL/min/1.73 m2) stage >=90 G1 Normal 60-89 G2 Mild decrease 45-59 G3A Mild to moderate decrease 30-44 G3B Moderate to severe decrease 15-29 G4 Severe decrease <15 G5 Kidney failure Ordering Provider: UMANG GREENFIELD Report Released Date/Time: Oct 20, 2024 09:44 AM Reporting Lab: [address] [address] Performing Lab: [address] [address] TSH 2.2190 m[IU]/mL 0.3500-4.9400 Immunizations: All administered on the encounter date This section contains immunizations associated to the Encounter. Immunization Series Date Issued Administered By Site Reaction Lot Number CVX Code Drug Assistant Department Manager Comment(s) Source INFLUENZA, SPLIT VIRUS, TRIVALENT, PF Oct 20, 2024 TIANNA ALVARES N RIGHT DELTO ID [id number] [employer] KAVITA Mac[place], [facility] Social History: Smoking Status (Most current) and Tobacco Use (All prior to encounter date) This section includes the most current, and the historical, smoking and tobacco- related health factors from the [place] facility where the Encounter took place. Current Smoking Status This section includes the most current smoking, or tobacco-related health factor, from the [place] facility where the Encounter took place. Date/Time Current Smoking Status Comment Tabatha ity February 16, 2024 08:00 AM VA-TOBACCO USER EVERY DAY [facility] Tobacco Use History This section includes a history of the smoking, or tobacco-related health factors, that were collected on or before the date of the Encounter. The data comes from the [place] facility where the Encounter took place. Date/Time Smoking Status/Tobacco Use Comment F acility February 16, 2024 08:00 AM VA-TOBACCO USE ADVICE [facility] February 16, 2024 08:00 AM VA-TOBACCO USE DIRECTOR OF SPEECH PATHOLOGY NO [facility] February 16, 2024 08:00 AM VA-TOBACCO USE MED NO [facility] February 16, 2024 08:00 AM VA-TOBACCO USE WI 30 MIN OF WAKE UP [facility] February 16, 2024 08:00 AM VA-TOBACCO USER EVERY DAY [facility] February 24, 2023 02:30 PM VA-TOBACCO USE 30 YEARS OR MORE [facility] February 24, 2023 02:30 PM VA-TOBACCO USE ADVICE [facility] February 24, 2023 02:30 PM VA-TOBACCO USE DIRECTOR OF SPEECH PATHOLOGY NO [facility] February 24, 2023 02:30 PM VA-TOBACCO USE MED NO [facility] February 24, 2023 02:30 PM VA-TOBACCO USE WI 30 MIN OF WAKE UP [facility] February 24, 2023 02:30 PM VA-TOBACCO USER EVERY DAY [facility] Nov 17, 2021 11:00 AM VA-TOBACCO DOESNT USE WI 30 MIN WAKEUP [facility] Nov 17, 2021 11:00 AM VA-TOBACCO USE 30 YEARS OR MORE [facility] Nov 17, 2021 11:00 AM VA-TOBACCO USE ADVICE [facility] Nov 17, 2021 11:00 AM VA-TOBACCO USE DIRECTOR OF SPEECH PATHOLOGY NO [facility] Nov 17, 2021 11:00 AM VA-TOBACCO USE MED NO [facility] Nov 17, 2021 11:00 AM VA-TOBACCO USER EVERY DAY [facility] Encounter Notes: All associated encounter notes This section contains the clinical notes associated to the Encounter. Date/Time Encounter Note(s) Provider Source Nov 15, 2024 04:20 PM PRIMARY CARE LETTE RS: LOCAL TITLE: PC LETTER TEST RESULTS STANDARD TITLE: PRIMARY CARE LETTERS DATE OF NOTE: NOV 15, 2024@16:20 ENTRY DATE: NOV 15, 2024@16:20:14 AUTHOR: UMANG GREENFIELD COSIGNER: URGENCY: STATUS: COMPLETED [address] [address] Mr. MEGHANN ROME [address] [place] [address] NOV 15, 2024 Dear Mr. MEGHANN ROME Your Primary Care Provider has reviewed your recent tests, and wanted us to let you know that everything looked stable. A copy of your test results is attached below. You may notice that some tests are listed as outside normal limits. Your Primary Care Provider has reviewed these results, and has determined these are not considered to be significant. Therefore, they do not require further investigation or treatment. There are no recommended changes in your medications or treatment plan at this time. Please call us if you have questions or problems. You can reach us at (toll free number) or [phone] (local number). If you are enrolled in [employer], and utilize those services, you may prefer to contact us by secure message. Thank you for your service to our Country. We are honored to be able to provide medical care to you. Thank you, Umang Greenfield, JANAE Recent labwork Collection DT Specimen Test Name Result Units Ref Range 11/09/2024 FECES FIT 10/04 Negative Ref: Negative Recent radiology results No data available Sincerely, /emani/ UMANG GREENFIELD PA-C Patient Record Number [id number] UMANG GREENFIELD [facility] Nov 03, 2024 02:25 PM PRIMARY CARE NORBERTO RS: LOCAL TITLE: PC LETTER TEST RESULTS STANDARD TITLE: PRIMARY CARE LETTERS DATE OF NOTE: NOV 03, 2024@14:25 ENTRY DATE: NOV 03, 2024@14:25:12 AUTHOR: UMANG GREENFIELD EXP COSIGNER: URGENCY: STATUS: COMPLETED [facility] [address] [place] [address] Mr. MEGHANN ROME [address] [place], [place] [address] NOV 03, 2024 Dear Mr. MEGHANN ROME I have reviewed your recent tests, and wanted to let you know of the results. Below you will notice that your BNP is currently high at 273, but this is much improved from previous BNP at [facility] of 1989. Although these values were completed by 2 different labs and there may be a difference in lab testing and quality. It is safe to say that this has improved. Please keep scheduled appt with Dr Rose at [facility]. Below you will notice that your DIRECT LDL (Bad cholesterol) is high. This increases your risk of cardiovascular events such as heart attack and stroke. Currently your 10 year risk for cardiovascular events is at 10.0%. Please verify that you are continuing to take your Rosuvastatin. I also recommend lifestyle changes. Monitor your diet closely, strictly limit high cholesterol foods, such as animal products and by-products. I also recommend walking daily for 30 mins at a moderate pace. These changes will reduce your cholesterol levels as well as lower your risk of cardiovascular events. Rest of labs stable, you may notice a few other values outside normal range, but these are acceptable. No further evaluation is needed at this time. Keep regularly scheduled appointment Please call us if you have questions or problems. You can reach us at (toll free number) or [phone] (local number). If you are enrolled in [employer], and utilize those services, you may prefer to contact us by secure message. Thank you for your service to our Country. We are honored to be able to provide medical care to you. Thank you, JANAE Brady Recent labwork Collection DT Specimen Test Name Result Units Ref Range 10/20/2024 09:47 PLASMA!! BNP (RAMÍREZ) 273 H pg/mL 0 - 100 10/20/2024 09:47 SERUM PSA 1.710 ng/mL 0 - 3.999 10/20/2024 09:47 PLASMA!! CHOLESTEROL 163 mg/dL 0 - 199 !! TRIGLYCERIDE 166 H mg/dL 0 - 149 !! HDL CHOLESTEROL 28 L mg/dL 40 - 69 !! DIRECT LDL CHOL. 122 H mg/dL 0 - 100 !! SODIUM 142 mmol/L 136 - 145 !! POTASSIUM 4.0 mmol/L 3.5 - 5.1 !! CHLORIDE 102 mmol/L 98 - 107 !! CO2 30 H mmol/L 22 - 29 !! ANION GAP 10.0 mEq/L 3 - 19 !! GLUCOSE 137 H mg/dL 74 - 100 !! UREA NITROGEN 20 mg/dL 9 - 25 !! CREATININE 0.89 mg/dL 0.72 - 1.25 !! eGFR (CKD-EPI) >90 SEE EVAL !! CALCIUM 9.7 mg/dL 8.4 - 10.2 !! TOTAL PROTEIN 7.3 g/dL 6.4 - 8.3 !! ALBUMIN 4.3 g/dL 3.5 - 5.2 !! TOTAL BILIRUBIN 0.5 mg/dL 0.2 - 1.2 !! AST 25 U/L 5 - 34 !! ALT 52 U/L 0 - 55 !! ALK PHOS 71 U/L 40 - 150 !! B12 VITAMIN 402 pg/mL 213 - 816 !! TSH 2.2190 mIU/mL 0.3500 - 4.9400 10/20/2024 09:47 BLOOD WBC 5.2 K/cmm 5.0 - 10.0 RBC 5.64 M/cmm 4.6 - 6.2 HGB 14.8 g/dL 14.0 - 18.0 HCT 46.5 % 42.0 - 52.0 MCV 82.4 fL 80.0 - 94.0 MCH 26.2 L pg 27.0 - 31.0 MCHC 31.8 L g/dL 32.0 - 36.0 RDW 13.1 % 11.0 - 16.0 PLT 211 K/cmm 150 - 450 MPV 12.1 fL 9.0 - 13.1 NRBC 0.0 % 0.0 - 0.0 !! Indicates COMMENTS AVAILABLE...Refer to Interim Lab Report. Recent radiology results No data available Sincerely, /emani/ UMANG GREENFIELD PA-C Patient Record Number [id number] UMANG GREENFIELD [facility] Oct 20, 2024 03:09 PM PRIMARY CARE NORBERTO RS: VICENTA TITLE: EMLR PATIENT LETTER STANDARD TITLE: PRIMARY CARE LETTERS DATE OF NOTE: OCT 20, 2024@15:09 ENTRY DATE: OCT 20, 2024@15:09:02 AUTHOR: UMANG GREENFIELD EXP COSIGNER: URGENCY: STATUS: COMPLETED [facility] [address] [place] [address] OCT 20, 2024 Mr. MEGHANN ROME [address] [place] [phone] Your current medication list is attached with any changes we may have talked about at your last visit. It is important that your primary care team is aware of all medications you are currently prescribed by our office or by providers outside of [place]. Attached is a detailed list of all medications on your record that are currently prescribed. Please review the list and notify your team immediately if you see errors, have questions, or see changes that were not discussed with you at your last visit. Thank you for your service to our country and thank you for allowing us to serve you. Active and Recently Outpatient Medications (excluding Supplies): Inactive Outpatient Medications Status = 1) ALBENDAZOLE 200MG TAB TAKE TWO TABLETS BY MOUTH ONCE -TAKE WITH FOOD Indication: FOR INFECTION 2) AMOXICILLIN 875/CLAV K 125MG TAB TAKE 1 TABLET BY MOUTH TWICE A DAY AFTER MEALS Indication: FOR SKIN OR SOFT TISSUE INFECTION 3) SULFAMETHOXAZOLE 800/TRIMETH 160MG TAB TAKE 1 TABLET BY MOUTH TWICE A DAY Indication: FOR SKIN OR SOFT TISSUE INFECTION Active Non-VA Medications Status = 1) Non-VA APIXABAN 5MG TAB 5MG MOUTH TWICE A DAY ACTIVE Indication: TO THIN BLOOD 2) Non-VA FUROSEMIDE 40MG TAB 40MG MOUTH DAILY ACTIVE Indication: FOR FLUID 3) Non-VA METOPROLOL SUCCINATE 200MG SA TAB 100MG MOUTH DAILY ACTIVE Indication: FOR BLOOD PRESSURE/HEART 4) Non-VA ROSUVASTATIN TAB 40MG MOUTH AT BEDTIME ACTIVE Indication: FOR CHOLESTEROL 7 Total Medications Sincerely, /emani/ UMANG GREENFIELD PA-C Patient Record Number [id number] [facility] MUANG GREENFIELD [facility] Oct 20, 2024 03:08 PM MEDICATION MGT NOT E: LOCAL TITLE: OUTPATIENT ESSENTIAL MEDICATION LIST FOR REVIEW (EM STANDARD TITLE: MEDICATION MGT NOTE DATE OF NOTE: OCT 20, 2024@15:08 ENTRY DATE: OCT 20, 2024@15:08:45 AUTHOR: UMANG GREENFIELD EXP COSIGNER: URGENCY: STATUS: COMPLETED Review of medications include: Patient allergies (Remote and Local) and active and pending prescriptions dispensed from this [place] (local) and dispensed from another [place] or [facility] facility (remote and pending) as well as local inpatient orders (pending and active) and clinic medications (IMOs), locally documented non-VA medications and local prescriptions that have or been discontinued in the past 90 days. With the exception of Allergies, if a category is not listed below, it means there were no relevant medications for the patient. ALLERGIES: Patient has answered A FACILITY ALLERGY/ADR -------- 636^[facility]^636ATORVASTATIN ACTIVE OUTPATIENT MEDICATIONS LOCAL/REMOTE GAUZE,PETROLATUM 3IN X 9IN Directions: USE GAUZE AFFECTED AREA TWICE A DAY FOR WOUND CARE. APPLY TO FOOT WOUND Quantity: 12 for 30 days Issued: 05/02/24 Filled: 05/03/24 Expires: 05/03/25 Refills: 2 Status: ACTIVE No remote medications found. PENDING OUTPATIENT MEDICATIONS (LOCAL/REMOTE): No local medications found. No remote medications found. ACTIVE NONVA MEDICATIONS (LOCAL): APIXABAN 5MG TAB Directions: 5MG MOUTH TWICE A DAY Status: ACTIVE ASPIRIN 81MG EC TAB Directions: 81MG MOUTH DAILY Status: ACTIVE FUROSEMIDE 40MG TAB Directions: 40MG [...] CLINIC MEDICATIONS (LOCAL): No local medications found. /emani/ UMANG GREENFIELD PA-C Signed: 10/20/2024 15:08 UMANG GREENFIELD [facility] Oct 20, 2024 10:16 AM IMMUNIZATION NOTE: LOCAL TITLE: IMMUNIZATION DOCUMENTATION NOTE STANDARD TITLE: IMMUNIZATION NOTE DATE OF NOTE: OCT 20, 2024@10:16:16 ENTRY DATE: OCT 20, 2024@10:16:16 AUTHOR: NIGEL WEN EXP COSIGNER: URGENCY: STATUS: COMPLETED Documented: ZOSTER RECOMBINANT Historical Date Administered: Aug 22, 2021 Outside Location: [facility] Information Source: FROM PATIENT'S WRITTEN RECORD Documented: ZOSTER RECOMBINANT Historical Date Administered: Apr 04, 2021 Outside Location: [facility] Information Source: FROM PATIENT'S WRITTEN RECORD /amy WEN LPN Signed: 10/20/2024 10:16 NIGEL WEN [facility] Oct 20, 2024 09:01 AM PRIMARY CARE NOTE: LOCAL TITLE: PC PROGRESS NOTE STANDARD TITLE: PRIMARY CARE NOTE DATE OF NOTE: OCT 20, 2024@09:01 ENTRY DATE: OCT 20, 2024@09:01:31 AUTHOR: UMANG GREENFIELD EXP COSIGNER: URGENCY: STATUS: COMPLETED ID: 59 year old MALE Chief Complaint: Ongoing management of active/chronic medical problems HPI/Problem List: Patient notes no big complaints to speak of. States recently hospitalized for A.fib, started on Eliquis. Notes is needing refills on Lasix and Eliquis sent to [facility]. Bowels moving well, urinating well. CPAP nightly, doing well with this. Active problems - Computerized Problem List is the source for the followin. Lumbar spondylosis 2. Exposure to potentially hazardous substance ([facility] [id number]) 3. History of malignant basal cell neoplasm of skin 4. Paroxysmal atrial fibrillation 5. Chews tobacco 6. Obstructive sleep apnea 7. Osteoarthritis of bilateral hip joints 8. Hyperlipidemia ROS: General: Denies weight loss/gain, fevers, chills HEENT: Denies changes in vision or hearing, [place] Respiratory: Denies SOB, cough Cardiac: Denies palpitations, chest pain, chest tightness, orthopnea, PND, nocturia, edema GI/: Denies heartburn, acid reflux, nausea, vomiting, constipation, diarrhea, blood in stool, changes in bowel or urinary habits Neuro: Denies syncope, weakness, numbness in legs/feet Pertinent negatives discussed Allergies: Patient has answered NKA Medications: Active and Recently Outpatient Medications (including Supplies): Active Outpatient Medications Status 1) GAUZE,PETROLATUM 3IN X 9IN USE GAUZE AFFECTED AREA TWICE A ACTIVE DAY APPLY TO FOOT WOUND Indication: FOR WOUND CARE. Inactive Outpatient Medications Status 1) ALBENDAZOLE 200MG TAB TAKE TWO TABLETS BY MOUTH ONCE -TAKE WITH FOOD Indication: FOR INFECTION 2) AMOXICILLIN 875/CLAV K 125MG TAB TAKE 1 TABLET BY MOUTH TWICE A DAY AFTER MEALS Indication: FOR SKIN OR SOFT TISSUE INFECTION 3) SULFAMETHOXAZOLE 800/TRIMETH 160MG TAB TAKE 1 TABLET BY MOUTH TWICE A DAY Indication: FOR SKIN OR SOFT TISSUE INFECTION Active Non-VA Medications Status 1) Non-VA ROSUVASTATIN CA TAB 40MG 40MG MOUTH AT BEDTIME ACTIVE Indication: FOR CHOLESTEROL 5 Total Medications PMH: Surgeries: - Right Hip MARY, 2022 SH: Tobacco: Smokeless tobacco, 2 cans weekly x 45 yrs EtOH: 3 beers daily Illicit drugs: Denies use Caffeine: 1 cup coffee Qd, rare soda Marital Status: , 15 yrs, 2 chidren Home Conditions: Patient reports being content with home life Education: College Occupation: Retired Sexual History: Sexually active, heterosexual : [employer], [id number], Deployed to [employer] [facility] [place] Exam: GENERAL: Alert and oriented x3, dressed appropriately, non-toxic, not acutely distressed, appears hemodynamically stable HEENT: Head normocephalic atraumatic NECK: Trachea midline, no bruit bilaterally CV: RRR, No murmurs, gallops, or rubs LUNG: Clear to auscultation bilaterally in anterior and posterior lung maxwell, normal inspiration and expiration, non-labored, vesicular breath sounds, no rales or rhonchi MS: No deformities, clubbing, cyanosis, or edema NEURO: Gait unremarkable PSYCH: Mood appropriate Avg Risk Colorectal Cancer Screen: AVERAGE RISK colorectal cancer screening is due based on information available to this clinical reminder FOBT/FIT (Fecal Immunochemical Testing) has been ordered. See order tab for details. Assessment and Plan: 1. Paroxysmal atrial fibrillation - Continue Apixaban 5mg Bid ([facility]) - Consult placed for [place] cardiology, patient prefers CITC with Dr. Rose, [facility] cardiology - Continue Metoprolol Succ 100mg daily ([facility]) - Consult with [facility] clinic for review 2. Acute combined systolic and diastolic heart failure - Review or [facility] notes indicates: Initial workup reviewed, hematologic labs are remarkable for elevated BNP at [address]. Dr. Tellez did a bedside ultrasound on his heart and discovered systolic on diastolic failure but no right heart strain. We did not do a CT of chest because he has no right heart strain. - Limited US of heart indicates: Gross systolic and diastolic dysfunction. No evidence or valvular regurgitation. Estimated EPSS 13.7 and EF estimated 4-45. No evidence of right heart strain - Continue Furosemide 40mg daily ([facility]) - Labs today to monitor, BNP - Consult for cards clinic as noted above 3. Obstructive sleep apnea - Patient using and benefitting from CPAP treatment 4. Hyperlipidemia - Labs today to monitor, LIPID PANEL - Continue Rosuvastatin ([facility]) 5. Encounter for immunization - Annual Influenza today in lab 6. Labs today, see orders The /caregiver voiced understanding of topics covered/discussed in today's visit. Reviewed and reconciled medication list with patient and/or caregiver The updated medication list was mailed to the patient/caregiver Follow up: 1 yr, RTC sooner if needed Patient seen by Umang Greenfield PA-C, Coordination of care with Dr. Vahid Erickson MD. 35 minutes entering clinical information into CPRS, reviewing history, performing an exam and evaluation, interpreting result, counseling patient/family/caregiver, reviewing x-rays/mri/labs, ordering meds/test/procedures, referring and communicating with consulting health care nurse rn, and care coordination. Time to not include procedures /es/ UMANG GREENFIELD PA-C Signed: 10/20/2024 15:08 UMANG GREENFIELD [facility] Oct 20, 2024 08:54 AM PRIMARY CARE JACQUELIN BLANDON NOTE: LOCAL TITLE: b3 bio Health Tech/safety professional Note STANDARD TITLE: PRIMARY CARE NURSING NOTE DATE OF NOTE: OCT 20, 2024@08:54 ENTRY DATE: OCT 20, 2024@08:54:04 AUTHOR: NIGEL WEN EXP COSIGNER: URGENCY: STATUS: COMPLETED Pc Health Tech/safety professional Note Has ADDENDA The patient was given a list of his current medications, instructed to review and discuss any changes or problems with their provider. Patient advised to carry a list of current medications and any allergies with them in the event of emergency situations. Yes - Union/Caregiver verbalized understanding of topics discussed and education provided Provider notified of elevated B/P >/= 140/90. Not Applicable Alcohol Use Screen (AUDIT-C): Alcohol Screen: SCREEN FOR ALCOHOL (AUDIT-C) An alcohol screening test (AUDIT-C) was negative (score=3). 1. How often did you have a drink containing alcohol in the past year? Consider a drink to be a 12 ounce can or bottle of regular beer, 8 ounces of malt liquor, a 5 ounce glass of table wine, or a 1.5 ounce shot of liquor (like scotch, gin, or vodka). Two to three times per week 2. How many drinks containing alcohol did you have on a typical day when you were drinking in the past year? One or two drinks 3. How often did you have six or more drinks on one occasion in the past year? Never COVID-19 Immunization: Refused Moderna Monovalent COVID-19 vaccine Immunization: COVID-19 (MODERNA), MRNA, LNP-S, PF, 50 MCG/0.5 ML (AGES 12+ YEARS) Refusal Reason: PATIENT DECISION Patient refuses all immunization(s) in the COVID-19 group Date Documented: 10/20/24 08:55 Learning Readiness Assessment: Preferred language for discussing health care Swedish NEW ASSESSMENT LEARNING BARRIERS Hearing Barrier READING LIMITATIONS PREFERRED METHODS FOR LEARNING INTERESTED IN LEARNING (MOTIVATED) PERSON BEING EDUCATED TODAY Education was provided on the following topics RESPONSE Eye Care At-Risk Screen : Patient identified to be at risk for the following eye condition(s): MACULAR DEGENERATION: Macular Degeneration Risk Factors Information: Reminder Term: VA-AMD RISK FACTORS Problem Diagnosis: 11/17/2021 Z72.0 (ICD-10-CM) Tobacco use Date Entered: 11/17/2021; Date Last Modified: 11/17/2021 Status: ACTIVE; Priority: UNDEFINED Prov. Narr. - Chews tobacco Action: Referral Ordered: Comprehensive Eye Exam Patient has an exclusion to Tele-Eye Screening. Schedule for a comprehensive eye exam ordered. Comment: nondiabetic PAVE Foot Check: A complete foot check was completed at this encounter. VISUAL INSPECTION: Includes inspection for skin breaks, deformity, erythema, trauma, pallor on elevation, dependent rubor, nail deformities, extensive callus and pitting edema. Visual exam results: Abnormal Observations: Thickened toenails PEDAL PULSES: Includes palpation of dorsalis and posterior tibial pulses and signs/symptoms of vascular compromise like pain, pallor, parasthesia or paralysis. Present (even if diminished) SENSORY CHECK: Includes 10 gram Monofilament (Linwood-Alyson) test of sensation. Intact (Greater than or equal to 80% of sites checked) Abnormal (Less than 80% of sites checked): Intact LOW-RISK: LOW RISK INFORMATION PROVIDED: 1. Advised patient not to walk barefoot. 2. Explained the importance of daily foot checks for changes. 3. Stressed the importance of daily foot hygiene, including bathing and complete drying. The patient verbalized understanding and was offered a detailed handout on diabetic foot care. /emani/ NIGEL WEN LPN Signed: 10/20/2024 09:00 10/20/2024 ADDENDUM STATUS: COMPLETED Influenza Immunization: Influenza, Trivalent, Preservative Free (Fluarix-Syringe) Administered: INFLUENZA, SPLIT VIRUS, TRIVALENT, PF Date Administered: Oct 20, 2024 09:00 Assistant Department Manager: [employer]en[employer] Lot: [id number] Exp Date: Apr 02, [address] [facility]: [phone] Admin Route/Site: INTRAMUSCULAR/RIGHT DELTOID Dosage: 0.5mL Vaccine Information Statement(s): INFLUENZA(FLU) VACC(INACTIVATED OR RECOMBINANT)VIS May 09, 2021 (OCCITAN) Order By: Umang Greenfield Administered By: July Alvares The Influenza Vaccine Information Statement (VIS) was reviewed with the patient/caregiver which lists the benefits and risks of the vaccine and the risks of not receiving the Influenza vaccine. The patient/caregiver denied any prior severe reaction to this vaccine or its components or a severe allergic reaction, such as anaphylaxis, to any vaccine or any injectable therapy. The patient/caregiver gave verbal consent to receive the vaccine. /emani/ July Alvares LPN LPN Signed: 10/20/2024 10:13 NIGEL WEN [facility]
--- OUTSIDE RECORDS SUMMARY | 2025-01-11 20:45 | XMS_ITS | Encounter Summary ---
Author Name [facility] [place] [facility] [place] Address [address] [place] [address] Care Team Providers Care Server Name Role Phone CHANEL BRITTANY Primary Care [...] Policy Pérez AETNA VISION AETNA VISIO N [facility] Jan 02, 2022 [id number] [facility] [phone] [place] PATIENT AETNA VISION VISION AETNA VISIO N [facility] Jan 02, 2022 [id number] [phone] [place] PATIENT [facility] TRICA RE DODA Oct 04, 2017 DODA [id number] [place] PATIENT (WNR) NONBI LLABL E Sep 03, 2010 NONBILL ABLE [id number] [place] PATIENT [facility] 2024 TRICA RE SELEC T Oct 04, 2024 [facility] [id number] [place] PATIENT [facility] 2024 JACKY Carbone WNR Oct 04, 2024 [facility] [id number] [place] PATIENT Selected Encounter This section includes the information on record at [place] for the Encounter. Date/Time Encounter Type Encounter Description Reason Provider Source May 02, 2024 09:00 AM OFFICE O/P EST MOD 30 MIN PODIATRY ICD-10-CM S92.424D Nondisp fx of dist phalanx of r great toe, 7thD SUKHDEV WYLIE IHE Encounter Template Text not used by [place] Assessments - Encounter Diagnoses This section includes the primary and secondary diagnoses documented for the Encounter. 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 This section includes future appointments and future orders which are active, pending or scheduled. Future Appointments This section includes appointments that were scheduled to occur 6 months from the date of the Encounter, up to a maximum of 20 appointments. The data comes from all [place] treatment facilities. Appointment Date/Time Appointment Type Appointme nt Facility Name May 16, 2024 12:30 PM AMBULATORY - SURGERY [facility] Aug 04, 2024 02:00 PM AMBULATORY - MEDICINE [facility] Oct 20, 2024 09:00 AM AMBULATORY - MEDICINE [facility] Oct 27, 2024 04:00 PM AMBULATORY - NONE [facility] Oct 30, 2024 08:00 AM AMBULATORY - NONE [facility] Radiology Reports: +/- 30 days of the [...] the Encounter. The data comes from all [place] treatment facilities. Date/Time Radiology Report Provider Source Apr 19, 2024 10:43 AM U/S ABD COMPLETE: MEGHANN ROME LIZZIE [id number] -[id number] M Exm Date: APR 19, 2024@10:43 Req Phys: OK HENRY Pat Loc: [facility] ATKINSON (Req'g Loc) Img Loc: ULTRASOUND Service: [place] [address] (Case [id number] COMPLETE) U/S ABD COMPLETE (US Detailed) CPT:24389 Reason for Study: SEE CLINICAL HISTORY Clinical History: REASON FOR EXAM:Other (provide detailed justification for request) low platelets PERTINENT PATIENT HISTORY: PROVIDER [id number] EMPHASIS ON LIVER/SPLEEN Report Status: Verified Date Reported: APR 19, 2024 Date Verified: APR 19, 2024 Ticket Printer And Tagger E-Sig: Report: Abdomen ultrasound. Ultrasound performed and [...] ABNORMALITY, ATTN NEEDED Primary Interpreting Staff: DEVON BYRD RADIOLOGIST Verified by director of payroll for DEVON BYRD /[facility] Apr 18, 2024 07:17 AM FOOT-RIGHT 3 OR MO RE VIEWS: MARTY ROMEYVAN SAMUEL [id number] -[id number] M Exm Date: APR 18, 2024@07:17 Req Phys: CAROLANN KATZ Pat Loc: [facility] POD/ATT1/LD (Req'g Loc) Img Loc: CDD RADIOLOGY Service: [place] [address] (Case [id number] COMPLETE) FOOT-RIGHT 3 OR MORE VIEWS (RAD Detailed) CPT:28728 Reason for Study: 1st toe trauma Clinical History: 1st toe trauma Report Status: Verified Date Reported: APR 18, 2024 Date Verified: APR 18, 2024 Ticket Printer And Tagger E-Sig: Report: FOOT-RIGHT 3 OR MORE VIEWS HISTORY: 1st toe trauma COMPARISON: The exam from 10/05/2013 could not be retrieved. Comparison is made to the written report. TECHNIQUE: 3 view(s) of the right foot, submitted to the [place] National Teleradiology Program (NTP) for interpretation. FINDINGS: [...] the prior exam. READING PHYSICIAN: Nawaf Knox -[phone] 04/18/2024 12:42 CDT [facility] National Teleradiology Program [phone] (For Medical Practitioner Use Only) Attention Patients / Veterans: If you have questions or concerns about these test results, please contact your ordering provider or primary care team. Primary Diagnostic Code: NO ALERT REQUIRED Primary Interpreting Staff: OUTSIDE SERVICE RADIOLOGY, Staff Physician / RADIOLOGY,OUTSIDE SERVICE [facility] Pathology Reports: +/- 30 days of the [...] the Encounter. The data comes from all [place] treatment facilities. Date/Time Pathology Report Provider Source Apr 18, 2024 01:13 PM LR MICROBIOLOGY RE PORT: Reporting Lab: [facility] [IA# [id number]] [address] [place] [id number] Accession [UID]: [id number] [[id number]] Received: Apr 18, 2024@13:13 Collection sample: SWAB Collection date: Apr 18, 2024 13:13 Site/Specimen: TOE, DORSAL SURFACE Provider: YENY LEE Test(s) ordered: CULTURE, WOUND-SUPERFICIAL.... completed: Apr 22, [...] --=--=--=--=--=--=--=--=-- Performing Laboratory: Bacteriology Report Performed By: [facility] [CLIA# [id number]] [address] [place] [address] [facility] Encounter Notes: All associated encounter notes This section contains the clinical notes associated to the Encounter. Date/Time Encounter Note(s) Provider Source May 02, 2024 04:10 PM PODIATRY ATTENDING NOTE: LOCAL TITLE: PODIATRY ATTENDING NOTE STANDARD TITLE: PODIATRY ATTENDING NOTE DATE OF NOTE: MAY 02, 2024@16:10 ENTRY DATE: MAY 02, 2024@16:11:03 AUTHOR: HARITHA WYLIE EXP COSIGNER: URGENCY: STATUS: COMPLETED SOAP Note SUBJECTIVE: The patient is a 59 year old MALE. Chief Complaint: Patient here for crush injury and wound on the right 1st nail bed. He is using Betadine wet to dry dressings, but they are sticking a lot. Past Medical History: Active problems - Computerized Problem List is the source for the followin. Lumbar spondylosis 2. Exposure to potentially hazardous substance ([facility] [id number]) 3. History of malignant basal cell neoplasm of skin 4. Paroxysmal atrial fibrillation 5. Chews tobacco 6. Obstructive sleep apnea 7. Osteoarthritis of bilateral hip joints 8. Hyperlipidemia ALLERGIES: Patient has answered NKA Food allergies: None known VITALS: SVS - Vital Signs Selected Measurement DT BP TEMP RESP PULSE POx F(C) (L/MIN)(%) 04/18/2024 08:51 135/78 98.4(36.9) 18 56 Measurement DT WEIGHT LB(KG)[BMI] 04/18/2024 08:51 FOOT RISK LEVEL: MEDICATION RECONCILIATION: Reviewed current medications with patient/significant other, patient/significant other reports taking ALL VA, Non VA & OTC medications as listed on CPRS medication tab outpatient section. Yes *Medication changes reviewed, patient/significant other verbalized understanding and provided information on new medication. Yes *Explained to the patient the importance of keeping providers updated on medication changes and to carrying an updated list of medication at all times in case of an emergency situation. Yes OBJECTIVE: FOOT RISK LEVEL: 0 ROS: pertinent to chief complaint & relative to above medical history. Psych: A&OX3; Mood is pleasant in no distress. Lower Extremity Physical Exam: DERM EVAL: SKIN: Dry, pink, warm, supple, sparse pedal hair growth b/l; Right hallux - lytic nail at the proximal aspect with degloving of the epinychium, proximal lateral nailbed and dorsal IPJ area. POP with local erythema and edema noted, No malodor nor lymphangiitis. Open wound as a result of the ulcerated right hallux nail bed looks good with slight watery drainage but no odor or soi. Dr. Lee looked at the wound today and estimates the wound to be 75% healed. VASCULAR EVAL: DP = 1/4 b/l PT = 1/4 b/l CFT < 3 seconds distal halluces b/l Edema none b/l ankles, feet. NEUROLOGICAL EVALUATION: Full detection of semmes-kristie monofilament plantar aspects & distal digits, b/l. Achilles DTR's intact, b/l ORTHOPEDICS EVALUATION: Muscle strength is 5/5 and symmetrical b/l. Right hallux - POP over DIPJ only, and not rest of digit. Pt is able to move the IPJ with mild pain. No sign of dislocation of IPJ. No SOI. - no POP over first or second metatarsals. b/l - Plantar contracture of PIPJ's, 2-5 and varus rotated 5th digits. - Pes planus. Limb length discrepancy right LE slightly shorter (approx < 1cm) than on the left LE due to s/p right total hip replacement. Radiology:FOOT-RIGHT 3 OR MORE VIEWS Exm Date: APR 18, 2024@07:17 Req Phys: CAROLANN KATZ Loc: [facility] POD/ATT1/LD (Req'g Loc) Img Loc: CDD RADIOLOGY Reason for Study: 1st toe trauma Clinical History: 1st toe trauma Report Status: Verified Date Reported: APR 18, 2024 Date Verified: APR 18, 2024 Ticket Printer And Tagger E-Sig: Report: FOOT-RIGHT 3 OR MORE VIEWS HISTORY: 1st toe trauma COMPARISON: The exam from 10/05/2013 could not be retrieved. Comparison is made to the written report. TECHNIQUE: 3 view(s) of the right foot, submitted to the [place] National Teleradiology Program (NTP) for interpretation. FINDINGS: [...] changes, not reported on the prior exam. Comments: Small fracture noted of exostoss on medial base of the distal phalanx noted without displacement. I do not see any metatarsal stress fracture noted of the second metatarsal. - IMPRESSION: Ulceration right great toe due to crush injury Open fracture nondisplaced right hallux, f/u encounter. Cellulitis right hallux improved. PLAN: Discussed with patient their clinical findings, etiology, diagnosis, treatment options and prognosis. I reviewed right foot x-rays with patient and answered his questions to his satisfaction. Continue wound care as he has been doing, but I also ordered some vaseline gauze to apply to the toe to prevent the dressing from sticking. Do not submerge the right foot in water. Patient understands. Rest and elevate foot is much as possible. Ice 15 minutes 3 times daily for pain. He is finished with his Augmentin and is to continue with next 2 weeks of sulfa drug. RTC: 2 weeks PAVE for f/up on open wound. I spent 33 minutes, reviewing history, performing an exam and evaluation, entering clinical information EHR, interpreting results, counseling patient/family/caregiver, reviewing x-rays/mri/labs, ordering meds/test/procedures, referring and communicating with consulting health healthcare consultant, and care coordination. Total time for this encounter does not include time spent performing any separately reported procedure or service by me or the clinical staff. /es/ HARITHA WYLIE PODIATRY ATTENDING Signed: 05/02/2024 16:30 HARITHA WYLIE [facility]
--- OUTSIDE RECORDS SUMMARY | 2025-01-11 20:45 | XMS_ITS | Encounter Summary ---
Author Name [place] Address [address] [place] [address] Care Team Providers Care Associate Programmer Name Role Phone CHANEL BRITTANY Primary Care [...] Policy Pérez AETNA VISION AETNA VISIO N [facility] Jan 02, 2022 [id number] [facility] [phone] R[place],PH ILLIP PATIENT AETNA VISION VISION AETNA VISIO N [facility] Jan 02, 2022 [id number] ROME,PH ILLIP PATIENT EXPRESS SCRIPTS TRICA RE DODA Oct 04, 2017 [place] [id number] ROME,PH ILLIP PATIENT (WNR) NONBI LLABL E Sep 03, 2010 NONBILL ABLE [id number] ROME,PH ILLIP PATIENT [facility] 2024 TRICA RE SELEC T Oct 04, 2024 [facility] [id number] ROME,PH ILLIP PATIENT [facility] 2024 JACKY Carbone WNR Oct 04, 2024 [facility] [id number] [phone] [place],PH ILLIP PATIENT Selected Encounter This section includes the information on record at [place] for the Encounter. Date/Time Encounter Type Encounter Description Reason Pro vider Source Dec 28, 2024 09:41 AM Outpatient Encounter ADMIN PAT ACTIVTIES (MASNONCT) IHE Encounter Template Text not used by [place] Plan of Treatment: Future Appointments (+ 6 months) and Future Tests (+/- 45 days) The Plan of Treatment section includes future care activities for the patient [facility] [place] This section includes future appointments and future orders which are active, pending or scheduled. Future Appointments This section includes appointments that were scheduled to occur 6 months from the date of the Encounter, up to a maximum of 20 appointments. The data comes from all [place] treatment facilities. Appointment Date/Time Appointment Type Appointme nt Facility Name Jan 11, 2025 10:00 AM [facility]ATORY - NONE [place] [facility] February 07, 2025 10:00 AM AMBULATORY - NONE [facility] Active, Pending, and Scheduled Orders This section includes a listing of several types of active, pending, and scheduled orders, including clinic medications orders, diagnostic test orders, procedure orders and consult orders; where the start date of the order is 45 days before the date of the Encounter or 45 days after the date of theEncounter. The data comes from all [place] treatment facilities. Test Date/Time Test Type Test Details Facility Name Dec 07, 2024 09:28 AM Consult Order COMMUNITY CARE-DS ROUTINE OPT Cons Motor Patrol Operator's Choice [facility] Dec 28, 2024 02:00 PM Consult Order COMMUNITY CARE-DS ROUTINE AUD Cons Motor Patrol Operator's Choice [facility] Encounter Notes: All associated encounter notes This section contains the clinical notes associated to the Encounter. Date/Time Encounter Note(s) Provider Source Dec 28, 2024 11:42 AM ADDENDUM: LOCAL TITLE: Addendum STANDARD TITLE: ADDENDUM DATE OF NOTE: DEC 28, 2024@11:42:38 ENTRY DATE: DEC 28, 2024@11:42:39 AUTHOR: MEGHANA ONTIVEROS EXP COSIGNER: URGENCY: STATUS: COMPLETED Please contact the [place] to determine his needs. [place] was issued aids in 2011. appears to live close to [place] and could be evaluated in [place] with his hearing aid fitting in [place]. /Jeffy Banerjee Staff Mobile Patrol Officer Signed: 12/28/2024 11:43 Receipt Acknowledged By: 12/28/2024 13:57 /emani/ ROB Neves SHOCK --- Original Document --- 12/28/24 CCC: SCHEDULING ADMINISTRATION: Caller Verification Call Back Number: [phone] Emergency Contact: VITALIY ROME Emergency Contact Caller/Recipient Relation to Patient: Self Caller Name: MEGHANN ROME Administrative Administrative Note Reason: Community Care / [place] Act Administrative Note Comments: [facility] aud Notes Notes & Information: pt is calling to get another [facility] for aud due to [facility], please call to discuss IMPORTANT: This note was created by [facility] Clinical Contact Center staff. Please do not alert the staff member by adding them as a signer for future communications. Alerts are not monitored by this user. /emani/ RANDALL PAINTING MSA Signed: 12/28/2024 09:41 Receipt Acknowledged By: 12/28/2024 10:43 /amy PAINTING RN, MINGN [facility] UTILITY DIVISION PROJECT MANAGER 12/28/2024 ADDENDUM STATUS: COMPLETED Specialty services determine CITC not primary care message sent to Audiology /amy PAINTING RN, MINGN [facility] [employer]ILITY [employer] PROJECT MANAGER Signed: 12/28/2024 10:39 12/28/2024 ADDENDUM STATUS: COMPLETED Mr Rome is asking about CITC Audiology /amy PAINTING RN, BSN [facility] [employer]ILITY [employer] PROJECT MANAGER Signed: 12/28/2024 10:43 Receipt Acknowledged By: 12/28/2024 11:42 /emani/ Jeffy LINDA Staff Mobile Patrol Officer MEGHANA ONTIVEROS-CHRISTINA [facility] Dec 28, 2024 10:41 AM ADDENDUM: LOCAL TITLE: Addendum STANDARD TITLE: ADDENDUM DATE OF NOTE: DEC 28, 2024@10:41:44 ENTRY DATE: DEC 28, 2024@10:41:45 AUTHOR: LYNNETTE PAINTING COSIGNER: URGENCY: STATUS: COMPLETED Mr Rome is asking about CITC Audiology /emani/ LYNNETTE PAINTING RN, BSN [facility] [employer]ILITY [employer] PROJECT MANAGER Signed: 12/28/2024 10:43 Receipt Acknowledged By: 12/28/2024 11:42 /emani/ Jeffy LINDA Staff Mobile Patrol Officer --- Original Document --- 12/28/24 CCC: SCHEDULING ADMINISTRATION: Caller Verification Call Back Number: [phone] Emergency Contact: VITALIY ROME Emergency Contact Caller/Recipient Relation to Patient: Self Caller Name: MEGHANN ROME Administrative Administrative Note Reason: Community Care / [place] Act Administrative Note Comments: [facility] aud Notes Notes & Information: pt is calling to get another [facility] for aud [facility], please call to discuss IMPORTANT: This note was created by [facility] Clinical Contact Center staff. Please do not alert the staff member by adding them as a signer for future communications. Alerts are not monitored by this user. /emani/ RANDALL PAINTING MSA Signed: 12/28/2024 09:41 Receipt Acknowledged By: 12/28/2024 10:43 /amy PAINTING RN, BSN [facility] [employer]ILITY DIVISION PROJECT MANAGER 12/28/2024 ADDENDUM STATUS: COMPLETED Specialty services determine CITC not primary care message sent to Audiology /emani/ LYNNETTE PAINTING RN, BSN [facility] [employer]ILITY DIVISION PROJECT MANAGER Signed: 12/28/2024 10:39 12/28/2024 ADDENDUM STATUS: UNSIGNED You may not VIEW this UNSIGNED Addendum. LYNNETTE PAINTING-CDD [facility] Dec 28, 2024 09:41 AM ADMINISTRATIVE NOT E: LOCAL TITLE: CCC: SCHEDULING ADMINISTRATION STANDARD TITLE: ADMINISTRATIVE NOTE DATE OF NOTE: DEC 28, 2024@09:41:52 ENTRY DATE: DEC 28, 2024@09:41:52 AUTHOR: RANDALL PAINTING EXP COSIGNER: URGENCY: STATUS: COMPLETED CCC: SCHEDULING ADMINISTRATION Has ADDENDA Caller Verification Call Back Number: [phone] Emergency Contact: VITALIY WILD Emergency Contact Caller/Recipient Relation to Patient: Self Caller Name: MEGHANN ROME Administrative Administrative Note Reason: Community Care / [place] Act Administrative Note Comments: citc aud Notes Notes & Information: pt is calling to get another citc for aud due to drive time to [place], please call to discuss IMPORTANT: This note was created by [facility] Clinical Contact Center staff. Please do not alert the staff member by adding them as a signer for future communications. Alerts are not monitored by this user. /emani/ RANDALL PAINTING [facility] Signed: 12/28/2024 09:41 Receipt Acknowledged By: 12/28/2024 10:43 /emani/ LYNNETTE PAINTING RN, BSN [facility] [employer]ILITY DIVISION PROJECT MANAGER 12/28/2024 ADDENDUM STATUS: COMPLETED Specialty services determine CITC not primary care message sent to Audiology /amy PAINTING RN, BSN [facility] [employer]ILITY DIVISION PROJECT MANAGER Signed: 12/28/2024 10:39 12/28/2024 ADDENDUM STATUS: COMPLETED Mr Rome is asking about CITC Audiology /emani/ LYNNETTE PAINTING RN, BSN [facility] [employer]ILITY DIVISION PROJECT MANAGER Signed: 12/28/2024 10:43 Receipt Acknowledged By: 12/28/2024 11:42 /emani/ MEGHANA ONTIVEROS AuD Staff Mobile Patrol Officer 12/28/2024 ADDENDUM STATUS: COMPLETED Please contact the to determine his needs. was issued aids in 2011. appears to live close to [place] and could be evaluated in [place] with his hearing aid fitting in [place]. /emani/ Jeffy LINDA Staff Mobile Patrol Officer Signed: 12/28/2024 11:43 Receipt Acknowledged By: * AWAITING SIGNATURE * ROB JOHANSEN KAWANA D [place]-[facility]
--- OUTSIDE RECORDS SUMMARY | 2025-01-11 20:46 | XMS_ITS | Encounter Summary ---
Author Name Department [place] Organization [place] Address [address] [place] [id number] Care Team Providers Care Senior Systems Architect Name Role Phone CHANEL BRITTANY Primary Care [...] Policy Pérez AETNA VISION AETNA VISIO N [facility] Jan 02, 2022 [id number] [phone] [place],PH ILLIP PATIENT AETNA VISION VISION AETNA VISIO N [facility] R Jan 02, 2022 [id number] R[place],PH ILLIP PATIENT EXPRESS SCRIPTS TRICA RE DODA Oct 04, 2017 DODA [id number] ROME,PH ILLIP PATIENT (WNR) NONBI LLABL E Sep 03, 2010 NONBILL ABLE [id number] [place],PH ILLIP PATIENT [facility] 2024 TRICA RE SELEC T Oct 04, 2024 [facility] [id number] R[place],PH ILLIP PATIENT [facility] 2024 JACKY Carbone WNR Oct 04, 2024 [facility] [id number] R[place],PH ILLIP PATIENT Selected Encounter This section includes the information on record at [place] for the Encounter. Date/Time Encounter Type Encounter Description Reason Pro vider Source Dec 12, 2024 12:00 PM Outpatient Encounter COMMUNITY CARE CONSULT IHE Encounter Template Text not used by [place] Plan of Treatment: Future Appointments (+ 6 months) and Future Tests (+/- 45 days) The Plan of Treatment section includes future care activities for the patient from all [place] treatmentfacilities. This section includes future appointments and future orders which are active, pending or scheduled. Future Appointments This section includes appointments that were scheduled to occur 6 months from the date of the Encounter, up to a maximum of 20 appointments. The data comes from all [place] treatment facilities. Appointment Date/Time Appointment Type Appointme nt Facility Name Jan 11, 2025 10:00 AM [facility] February 07, 2025 10:00 AM AMBULATORY - NONE [facility] Active, Pending, and Scheduled Orders This section includes a listing of several types of active, pending, and scheduled orders, including clinic medications orders, diagnostic test orders, procedure orders and consult orders; where the start date of the order is 45 days before the date of the Encounter or 45 days after the date of theEncounter. The data comes from all [place] treatment [facility]. Test Date/Time Test Type Test Details Facility Name Dec 07, 2024 09:28 AM Consult Order COMMUNITY CARE-DS ROUTINE OPT Cons Narcotics Detective's Choice [facility] Dec 28, 2024 02:00 PM Consult Order COMMUNITY CARE-DS ROUTINE AUD Cons Narcotics Detective's Choice [facility] Encounter Notes: All associated encounter notes This section contains the clinical notes associated to the Encounter. Date/Time Encounter Note(s) Provider Source Dec 12, 2024 12:00 PM NONVA CONSULT: LOCAL TITLE: COMMUNITY CARE-CONSULT RESULT NOTE STANDARD TITLE: NONVA CONSULT DATE OF NOTE: DEC 12, 2024@12:00 ENTRY DATE: JAN 09, 2025@15:23:56 AUTHOR: MCPEEK,FELIX J EXP COSIGNER: URGENCY: STATUS: COMPLETED VistA Imaging - Scanned Document COM [id number] SCANNED DOCUMENT SIGNATURE NOT REQUIRED Electronically Filed: 01/09/2025 by: FELIX KHAN [facility]
--- OUTSIDE RECORDS SUMMARY | 2025-01-11 20:46 | XMS_ITS | Encounter Summary ---
Author Name [place] Address [address] [place] [address] Care Team Providers Care Provider Engagement Executive Name Role Phone CHANEL BRITTANY Primary Care [...] Policy Pérez AETNA VISION AETNA VISIO N [facility] Jan 02, 2022 [id number] [facility] [phone] R[place],PH ILLIP PATIENT AETNA VISION VISION AETNA VISIO N [facility] Jan 02, 2022 [id number] ROME,PH ILLIP PATIENT EXPRESS SCRIPTS TRICA RE DODA Oct 04, 2017 DODA [id number] ROME,PH ILLIP PATIENT (WNR) NONBI LLABL E Sep 03, 2010 NONBILL ABLE [id number] ROME,PH ILLIP PATIENT [facility] 2024 TRICA RE SELEC T Oct 04, 2024 [facility] [id number] R[place],PH ILLIP PATIENT [facility] 2024 JACKY Carbone WNR Oct 04, 2024 [facility] [id number] R[place],PH ILLIP PATIENT Selected Encounter This section includes the information on record at [place] for the Encounter. Date/Time Encounter Type Encounter Description Reason Provider Source Oct 14, 2024 10:45 AM OFFICE O/P EST LOW 20 MIN URGENT CARE ICD-10-CM I48.91 Unspecified atrial fibrillation KATINA FITZPATRICK [facility] Encounter Template Text not used by [place] Assessments - Encounter Diagnoses This section includes the primary and secondary diagnoses documented for the Encounter. Date/Time Primary/Secondary Diagnosis Diagnosis Name Provider Source Oct 14, 2024 10:51 AM PRIMARY Unspecified atrial fibrillation ROSEANNE FITZPATRICK [facility] Oct 14, 2024 10:51 AM SECONDARY Other chest pain ROSEANNE FITZPATRICK [facility] Plan of Treatment: Future Appointments (+ 6 months) and Future Tests (+/- 45 days) The Plan of Treatment section includes future care activities for the patient from all [place] treatmentfacilities. This section includes future appointments and future orders which are active, pending or scheduled. Future Appointments This section includes appointments that were scheduled to occur 6 months from the date of the Encounter, up to a maximum of 20 appointments. The data comes from all [place] treatment facilities. Appointment Date/Time Appointment Type Appointme nt Facility Name Oct 20, 2024 09:00 AM AMBULATORY - MEDICINE [facility] Oct 27, 2024 04:00 PM AM[facility]ULATORY - NONE [place] [facility] Oct 30, 2024 08:00 AM [facility] [place] Nov 30, 2024 09:30 AM AMBULATORY - MEDICINE [facility] Dec 12, 2024 01:00 PM [facility] [place] [facility] Jan 11, 2025 10:00 AM [facility] February 07, 2025 10:00 AM AMBULATORY - NONE [facility] Lab Results: +/- 30 days of the encounter This section includes the Chemistry and Hematology Lab Results on record with [place] for the patient. Radiology Reports and Pathology Reports are provided separately, in subsequent sections. Lab Results This section contains the Chemistry/Hematology Results that were resulted 30 days before or 30 daysafter the date of the Encounter. Date/Time Source Result Type Result - Unit Interpretation Reference Range Specimen Type Comment Nov 09, 2024 12:00 AM [facility] OCCULT BLO[facility] FIT X1 SCREEN FECES Specimen Typ e: FECES No comment entered. Ordering Provider: ULICES GREENFIELD Report Released Date/Time: Oct 20, 2024 09:44 AM Reporting Lab: [address] [address] Performing Lab: [address] [address] OCCULT BLOOD (FIT) #1 OF 1 Negative Nega tive Oct 20, 2024 09:47 AM [facility] B12 VITAMIN PLASMA Specimen Type: PLASM A [...] of sample is too elevated. Ordering Provider: ULICES GREENFIELD Report Released Date/Time: Oct 20, 2024 09:44 AM Reporting Lab: [address] [address] Performing Lab: [address] [address] B12 VITAMIN 402 pg/mL 213-816 Oct 20, 2024 09:47 AM [facility] PSA S SKYLA Specimen Type: SERUM No comment entered. Ordering Provider: ULICES GREENFIELD Report Released Date/Time: Oct 20, 2024 09:44 AM Reporting Lab: [address] [address] Performing Lab: [address] [address] PSA 1.710 ng/mL 0-3.999 Oct 20, 2024 09:47 AM [facility] BNP (JournalDoc) PLASMA Specimen Type: PLASMA Comment: BNP results less than or equal to 100 pg/ml are industrial relations representative of normal values in patients without CHF. BNP results greater than 100 pg/ml are considered abnormal and suggestive of CHF. Higher BNP concentrations in the first 72 hours after Acute Coronary Syndrome are associated with an increased risk of , myocardial infarction and CHF. Ordering Provider: ULICES GREENFIELD Report Released Date/Time: Oct 20, 2024 09:44 AM Reporting Lab: [address] [address] Performing Lab: [address] [address] BNP (RAMÍREZ) 273 pg/mL H 0-100 Oct 20, 2024 09:47 AM [facility] LIPID PROFILE PLASMA Specimen Type: PLASM A [...] decrease <15 G5 Kidney failure Ordering Provider: ULICES GREENFIELD Report Released Date/Time: Oct 20, 2024 09:44 AM Reporting Lab: [address] [address] Performing Lab: [address] [address] CHOLESTEROL 163 mg/dL 0-199 TRIGLYCERIDE 166 mg/dL H 0-149 HDL CHOLESTEROL 28 mg/dL L 40-69 DIRECT LDL CHOL. 122 mg/dL H 0-100 Oct 20, 2024 09:47 AM [facility] CBC/PLT BLOOD Specimen Type: BLOOD No comment entered. Ordering Provider: ULICES GREENFIELD Report Released Date/Time: Oct 20, 2024 09:44 AM Reporting Lab: [address] [address] Performing Lab: [address] [address] WBC 5.2 10*3/uL 5.0-10.0 RBC 5.64 10*6/uL 4.6-6.2 HGB 14.8 g/dL 14.0-18.0 HCT 46.5 42.0-52.0 MCV 82.4 fL 80.0-94.0 MCH 26.2 pg L 27.0-31.0 MCHC 31.8 g/dL L 32.0-36.0 PLT 211 10*3/uL 150-450 MPV 12.1 fL 9.0-13.1 RDW 13.1 11.0-16.0 NRBC 0.0 0.0-0.0 Oct 20, 2024 09:47 AM [facility] TSH PLASMA Specimen Type: PLASM A Comment: [...] decrease <15 G5 Kidney failure Ordering Provider: ULICES GREENFIELD Report Released Date/Time: Oct 20, 2024 09:44 AM Reporting Lab: [address] [address] Performing Lab: [address] [address] TSH 2.2190 m[IU]/mL 0.3500-4.9400 Oct 20, 2024 09:47 AM [facility] PANEL 5 PLASMA Specimen Type: PLASM A [...] decrease <15 G5 Kidney failure Ordering Provider: ULICES GREENFIELD Report Released Date/Time: Oct 20, 2024 09:44 AM Reporting Lab: [address] [address] Performing Lab: [address] [address] CREATININE 0.89 mg/dL 0.72-1.25 UREA NITROGEN 20 [...] PHOS 71 U/L 40-150 eGFR (CKD-EPI) >90 Encounter Notes: All associated encounter notes This section contains the clinical notes associated to the Encounter. Date/Time Encounter Note(s) Provider Source Oct 14, 2024 10:45 AM PHYSICIAN NOTE: LOCAL TITLE: CCC: VIRTUAL CLINIC VISITS STANDARD TITLE: PHYSICIAN NOTE DATE OF NOTE: OCT 14, 2024@10:45 ENTRY DATE: OCT 14, 2024@10:45:48 AUTHOR: ROSEANNE FITZPATRICK COSIGNER: URGENCY: STATUS: COMPLETED CLINICAL CONTACT CENTER (CCC): VIRTUAL CLINIC VISITS This template should be used by providers conducting Clinical Contact Center ([facility]) Virtual Clinic Visits. Patient Name: MEGHANN ROME Patient Primary Address: Mr. MEGHANN ROME [address], [place] [address] Patient Primary Patient : Jan Patient SSN: [id number] Current Address:SAME Current Phone: SAME Emergency Contact: Patient Phone Numbers: Cell: No data available Home: Work: No data available Emergency Contact: Name: VITALIY ROME Relationship: Secondary Emergency Contact: Name: No data available Relationship: No data available Phone: No data available Secondary Next of Kin Contact Name: No data available Relationship: No data available Phone: No data available Virtual Visit Type: Video CHIEF COMPLAINT/HISTORY OF ILLNESS Chief complaint: Chest pain History of present illness: Pt reports a one week history of left sided chest pain. Pt describes the pain as sharp and worse with taking a deep breath. Pt also has some dyspnea with exertion. Pt has a history of atrial fibrillation. Pt's apple watch reports that he is atrial fibrillation. ALLERGIES/ADVERSE REACTIONS Patient has answered NKA IMMUNIZATION HISTORY IM - Immunizations ADMINISTERED Immunization Series Date Facility Reaction Info COVID-19 (PFIZER), MRNA, LNP-S, * 2 12/04/2020 [place] * COVID-19 (PFIZER), MRNA, LNP-S, * 1 11/17/2020 [place] * INFLUENZA, MDCK, QUADRIVALENT, PF 08/17/2022 [facility] * INFLUENZA, UNSPECIFIED FORMULATI* 09/11/2021 [facility]* PNEUMOCOCCAL CONJUGATE PCV20, PO* 03/19/2022 [place]* TDAP 03/26/2023 [facility] * CONTRAINDICATED No data available REFUSED ======= Immunization Date Facility Info COVID-19 (Appriss), MRNA, LNP-S, * 05/18/2023 [facility] * <I> COVID-19 (PFIZER), MRNA, LNP-S, * 02/16/2024 [facility] * <I> INFLUENZA, UNSPECIFIED FORMULATI* 02/16/2024 [facility] * <I> ZOSTER RECOMBINANT 02/16/2024 [facility] * <I> <I> See the Detailed Immunizations Health Summary Component[DIM] for Additional Information * Value is truncated; see the Detailed Immunizations Health Summary Component[DIM] for complete text ST - Skin Tests No data available ACTIVE MEDICATION LIST Active Outpatient Medications (including Supplies): Active Outpatient Medications Status = 1) GAUZE,PETROLATUM 3IN X 9IN USE GAUZE AFFECTED AREA TWICE A ACTIVE DAY APPLY TO FOOT WOUND Indication: FOR WOUND CARE. Active Non-VA Medications Status = 1) Non-VA ASPIRIN 81MG EC TAB 81MG MOUTH DAILY ACTIVE 2) Non-VA METOPROLOL SUCCINATE 200MG SA TAB 100MG MOUTH DAILY ACTIVE 3) Non-VA ROSUVASTATIN CA TAB 40MG 40MG MOUTH AT BEDTIME ACTIVE Indication: FOR CHOLESTEROL 4) Non-VA SILDENAFIL CITRATE 100MG TAB 100MG MOUTH DIRECTED ACTIVE 5 Total Medications ACTIVE PROBLEMS LIST Active problems - Computerized Problem List is the source for the followin. Lumbar spondylosis 2. Exposure to potentially hazardous substance ([facility] [id number]) 3. History of malignant basal cell neoplasm of skin 4. Paroxysmal atrial fibrillation 5. Chews tobacco 6. Obstructive sleep apnea 7. Osteoarthritis of bilateral hip joints 8. Hyperlipidemia RESULTS Medication Reconciliation VIRTUAL REVIEW OF SYSTEMS ++INSTRUCTIONS: Check systems and sx lists if applicable and use other to add sxs or note exceptions to the checked lists.++ Patient History Patient provided history Relative Type Caregiver's Name that provided history: PATIENT-PROVIDED INFORMATION VIRTUAL OBSERVATIONS Provider Comments/Other Observations: None MEDICAL DECISION MAKING* Medical Decision Making Pt is having chest pain, shortness of breath, and is in atrial fibrillation. Pt needs further evaluation in the ER. IMPRESSION AND ASSESSMENT Impression & Assessment Atrial fibrillation/chest pain - Pt instructed to go to the local ER for further evaluation. DISPOSITION/PLAN Emergency care referral Instructed patient to go to Emergency Department Disposition Other Patient care plan comments Patient/Caregiver agrees to plan of care Yes Disposition Comments: FOLLOW UP TOTAL TIME SPENT: 25 min /emani/ ROSEANNE FITZPATRICK STAFF ATTENDING Signed: 10/14/2024 10:51 Receipt Acknowledged By: 10/16/2024 08:09 /emani/ ROSEANNE STEWART PA-C-[facility]
--- OUTSIDE RECORDS SUMMARY | 2025-01-11 20:46 | XMS_ITS ---
Author Name [place] Address [address] [place] [address] Care Team Providers Care Operations Associate Name Role Phone CHANEL BRITTANY Primary Care [...] Policy Pérez AETNA VISION AETNA VISIO N [facility] Jan 02, 2022 [id number] [facility] [phone] [place]LL[place] PATIENT AETNA VISION VISION AETNA VISIO N [facility] Jan 02, 2022 [id number] [place] ILLIP PATIENT EXPRESS SCRIPTS TRICA RE DODA Oct 04, 2017 DODA [id number] [place] ILLIP PATIENT (WNR) NONBI LLABL E Sep 03, 2010 NONBILL ABLE [id number] [place] ILLIP PATIENT [facility] 2024 TRICA RE SELEC T Oct 04, 2024 [facility] [id number] [place] ILLIP PATIENT [facility] 2024 JACKY Carbone WNR Oct 04, 2024 SELECT [id number] [phone] [place] ILLIP PATIENT Selected Encounter This section includes the information on record at [place] for the Encounter. Date/Time Encounter Type Encounter Description Reason Pro vider Source Oct 10, 2024 09:07 AM Outpatient Encounter ADMIN PAT ACTIVTIES (MASNONCT) IHE Encounter Template Text not used by [place] Plan of Treatment: Future Appointments (+ 6 months) and Future Tests (+/- 45 days) The Plan of Treatment section includes future care activities for the patient from all [place] [facility]. This section includes future appointments and future [...] 20, 2024 09:00 AM AMBULATORY - MEDICINE [facility] Oct 27, 2024 04:00 PM AMBULATORY - NONE [facility] Oct 30, 2024 08:00 AM AMBULATORY - NONE [facility] Nov 30, 2024 09:30 AM AMBULATORY - MEDICINE [facility] Dec 12, 2024 01:00 PM AMBULATORY - NONE [facility] Jan 11, 2025 10:00 AM AMBULATORY - NONE [facility] February 07, 2025 10:00 AM AMBULATORY - NONE [facility] Lab Results: +/- 30 days of the encounter This section includes the Chemistry and Hematology Lab Results on record with [place] for the patient. Radiology Reports and Pathology Reports are provided separately, in subsequent sections. Lab Results This section contains the Chemistry/Hematology Results that were resulted 30 days before or 30 daysafter the date of the Encounter. Date/Time Source Result Type Result - Unit Interpretation Reference Range Specimen Type Comment Nov 09, 2024 12:00 AM [facility] N OCCULT BLOOD FIT X1 SCREEN FECES Specimen Typ e: FECES No comment entered. Ordering Provider: ULICES GREENFIELD Report Released Date/Time: Oct 20, 2024 09:44 AM Reporting Lab: [facility] [address] [address] Performing Lab: [address] [address] OCCULT BLOOD (FIT) #1 OF 1 Negative Nega tive Oct 20, 2024 09:47 AM [facility] B12 VITAMIN PLASMA Specimen Type: [...] Oct 20, 2024 09:44 AM Reporting Lab: [address] [address] Performing Lab: [address] [address] B12 VITAMIN 402 pg/mL 213-816 Oct 20, 2024 09:47 AM [facility] PSA S SKYLA Specimen Type: SERUM No comment entered. Ordering Provider: ULICES GREENFIELD Report Released Date/Time: Oct 20, 2024 09:44 AM Reporting Lab: [address] [address] Performing Lab: [address] [address] PSA 1.710 ng/mL 0-3.999 Oct 20, 2024 09:47 AM [facility] BNP (ZocDoc) PLASMA Specimen Type: PLASMA Comment: BNP results less than or equal to 100 pg/ml are product support representative of normal values in patients without CHF. BNP results greater than 100 pg/ml are considered abnormal and suggestive of CHF. Higher BNP concentrations in the first 72 hours after Acute Coronary Syndrome are associated with an increased risk of , myocardial infarction and CHF. Ordering Provider: ULICES GREENFIELD Report Released Date/Time: Oct 20, 2024 09:44 AM Reporting Lab: [address] [address] Performing Lab: [address] [address] BNP (RAÍMREZ) 273 pg/mL H 0-100 Oct 20, 2024 09:47 AM [facility] LIPID PROFILE PLASMA Specimen Type: [...] Oct 20, 2024 09:44 AM Reporting Lab: [address] [address] Performing Lab: [address] [address] CHOLESTEROL 163 mg/dL 0-199 TRIGLYCERIDE 166 mg/dL H 0-149 HDL CHOLESTEROL 28 mg/dL L 40-69 DIRECT LDL CHOL. 122 mg/dL H 0-100 Oct 20, 2024 09:47 AM [facility] CBC/PLT BLOOD Specimen Type: BLOOD No comment entered. Ordering Provider: ULICES GREENFIELD Report Released Date/Time: Oct 20, 2024 09:44 AM Reporting Lab: [address] [address] Performing Lab: [facility] [address] [address] WBC 5.2 10*3/uL 5.0-10.0 RBC 5.64 10*6/uL 4.6-6.2 HGB 14.8 g/dL 14.0-18.0 HCT 46.5 42.0-52.0 MCV 82.4 fL 80.0-94.0 MCH 26.2 pg L 27.0-31.0 MCHC 31.8 g/dL L 32.0-36.0 PLT 211 10*3/uL 150-450 MPV 12.1 fL 9.0-13.1 RDW 13.1 11.0-16.0 NRBC 0.0 0.0-0.0 Oct 20, 2024 09:47 AM [facility] PANEL 5 PLASMA Specimen Type: PLASM [...] Oct 20, 2024 09:44 AM Reporting Lab: [address] [address] Performing Lab: [address] [address] CREATININE 0.89 mg/dL 0.72-1.25 UREA NITROGEN 20 [...] (CKD-EPI) >90 Oct 20, 2024 09:47 AM [facility] TSH PLASMA Specimen Type: PLASM [...] Oct 20, 2024 09:44 AM Reporting Lab: [address] [address] Performing Lab: [address] [address] TSH 2.2190 m[IU]/mL 0.3500-4.9400 Encounter Notes: All associated encounter notes This section contains the clinical notes associated to the Encounter. Date/Time Encounter Note(s) Provider Source Oct 10, 2024 09:09 AM LETTERS: LOCAL TITLE: GENERAL LETTER OF CONTACT STANDARD TITLE: LETTERS DATE OF NOTE: OCT 10, 2024@09:09 ENTRY DATE: OCT 10, 2024@09:11:02 AUTHOR: HODA ALONZO EXP COSIGNER: URGENCY: STATUS: COMPLETED [address] [address] Mr. MEGHANN ROME [address] [place], [place] [address] Oct Dear : Your Primary Care team has been unable to contact you by telephone regarding your healthcare. Your health and well-being are important to us. Please call us at or , then select option 2 and press 2 again to speak with Telephone care. We look forward to hearing from you very soon. Sincerely yours, Primary Care [facility] HODA ALONZO-Renaldo [facility]
--- OUTSIDE RECORDS SUMMARY | 2025-01-11 20:46 | XMS_ITS | Encounter Summary ---
Author Name [place] Address [address] [place] [address] Care Team Providers Care Global Marketing Manager Name Role Phone BRITTANY BUCHANAN Primary [...] Policy Pérez AETNA VISION AETNA VISIO N [facility] Jan 02, 2022 [id number] [facility] [phone] [place] ILLIP PATIENT AETNA VISION VISION AETNA VISIO N [facility] Jan 02, 2022 [id number] [phone] [place] ILLIP PATIENT EXPRESS SCRIPTS TRICA RE DODA Oct 04, 2017 DODA [id number] [place] ILLIP PATIENT (WNR) NONBI LLABL E Sep 03, 2010 NONBILL ABLE [id number] [place] ILLIP PATIENT [facility] 2024 TRICA RE SELEC T Oct 04, 2024 [facility] [id number] [place] ILLIP PATIENT [facility] 2024 JACKY Carbone WNR Oct 04, 2024 SELECT [id number] [phone] [place] ILLIP PATIENT Selected Encounter This section includes the information on record at [place] for the Encounter. Date/Time Encounter Type Encounter Description Reason Pro vider Source Nov 21, 2024 10:42 AM Outpatient Encounter ADMIN PAT ACTIVTIES (MASNONCT) IHE Encounter Template Text not used by [place] Plan of Treatment: Future Appointments (+ 6 [...] 20 appointments. The data comes from all [facility]. Appointment Date/Time Appointment Type Appointme nt Facility Name Nov 30, 2024 09:30 AM AMBULATORY - MEDICINE [facility] Dec 12, 2024 01:00 PM AMBULATORY - NONE [facility] Jan 11, 2025 10:00 AM AMBULATORY - NONE [facility] February 07, 2025 10:00 AM AMBULATORY - NONE [facility] Active, Pending, and Scheduled Orders This section includes a listing of several types of active, pending, and scheduled orders, including clinic medications orders, diagnostic test orders, procedure orders and consult orders; where the start date of the order is 45 days before the date of the Encounter or 45 days after the date of theEncounter. The data comes from all [facility]. Test Date/Time Test Type Test Details Facility Name Dec 07, 2024 09:28 AM Consult Order COMMUNITY CARE-DS ROUTINE OPT Cons Manager Real Estate[facility] Dec 28, 2024 02:00 PM Consult Order COMMUNITY CARE-DS ROUTINE AUD Cons Manager [facility] Lab Results: +/- 30 days of the [...] Type Comment Nov 09, 2024 12:00 AM [facility] OCCULT BLOOD FIT X1 SCREEN FECES Specimen Typ e: FECES No comment entered. Ordering Provider: ULICES GREENFIELD Report Released Date/Time: Oct 20, 2024 09:44 AM Reporting Lab: [address] [address] Performing Lab: [address] [address] OCCULT BLOOD (FIT) #1 OF 1 Negative Nega tive Encounter Notes: All associated encounter notes This section contains the clinical notes associated to the Encounter. Date/Time Encounter Note(s) Provider Source Nov 21, 2024 10:42 AM [employer] DIALOG NOTE: LOCAL TITLE: Nasseo STANDARD TITLE: [employer] DIALOG NOTE DATE OF NOTE: NOV 21, 2024@10:42 ENTRY DATE: NOV 21, 2024@10:42:45 AUTHOR: BRAD HASKINS EXP COSIGNER: URGENCY: STATUS: COMPLETED ------Original Message ----- Sent: 11/21/2024 10:41 AM ET From: BRAD HASKINS To: MEGHANN ROME Subject: General:CARDIOLOGY Good Morning, My name is Brad in Community Care at [facility]. I was trying to reach out to you by phone, and received a message saying you do not accept voicemail messages. This is to verify if you would like to continue cardiology community care or come to the [facility]. Please contact me at [phone]. [phone]. Thank You /emani/ BRAD HASKINS AMSA Signed: 11/21/2024 10:42 BRAD HASKINS [facility]
--- OUTSIDE RECORDS SUMMARY | 2025-01-11 20:46 | XMS_ITS | Encounter Summary ---
Author Name [place] Address [address] [place] [address] Care Team Providers Care Patient Support Associate Name Role Phone CHANEL BRITTANY Primary [...] Policy Pérez AETNA VISION AETNA VISIO N [facility] Jan 02, 2022 [id number] [facility] [phone] [place] ILLIP PATIENT AETNA VISION VISION AETNA VISIO N [facility] Jan 02, 2022 [id number] [place] ILLIP PATIENT EXPRESS SCRIPTS TRICA RE DODA Oct 04, 2017 DODA [id number] [place] ILLIP PATIENT (WNR) NONBI LLABL E Sep 03, 2010 NONBILL ABLE [id number] [place] ILLIP PATIENT [facility] 2024 TRICA RE SELEC T Oct 04, 2024 SELECT [id number] [place] ILLIP PATIENT [facility] 2024 JACKY Carbone WNR Oct 04, 2024 SELECT [id number] [place] ILLIP PATIENT Selected Encounter This section includes the information on record at [place] for the Encounter. Date/Time Encounter Type Encounter Description Reason Pro vider Source Dec 28, 2024 01:11 PM Outpatient Encounter ADMIN PAT ACTIVTIES (MASNONCT) IHE Encounter Template Text not used by [place] Plan of Treatment: Future Appointments (+ 6 months) and Future Tests (+/- 45 days) The Plan of Treatment section includes future care activities for the patient from all [place] [facility]. This section includes future appointments and future orders which are active, pending or scheduled. Future Appointments This section includes appointments that were scheduled to occur 6 months from the date of the Encounter, up to a maximum of 20 appointments. The data comes from all [place] treatment facilities. Appointment Date/Time Appointment Type Appointme nt Facility Name Jan 11, 2025 10:00 AM AMBULATORY - NONE [facility] February 07, 2025 10:00 AM AMBULATORY [...] of theEncounter. The data comes from all [place] treatment facilities. Test Date/Time Test Type Test Details Facility Name Dec 07, 2024 09:28 AM Consult Order COMMUNITY CARE-DS ROUTINE OPT Cons Specifications Writer's Choice [facility] Dec 28, 2024 02:00 PM Consult Order COMMUNITY CARE-DS ROUTINE AUD Cons Specifications Writer's Choice [facility] Encounter Notes: All associated encounter notes This section contains the clinical notes associated to the Encounter. Date/Time Encounter Note(s) Provider Source Dec 28, 2024 01:11 PM NONVA NOTE: LOCAL TITLE: COMMUNITY CARE TELEPHONE ADMIN NOTE STANDARD TITLE: NONVA NOTE DATE OF NOTE: DEC 28, 2024@13:11 ENTRY DATE: DEC 28, 2024@13:11:57 AUTHOR: PRIETO GASCA EXP COSIGNER: URGENCY: STATUS: COMPLETED Name of caller: MEGHANN ROME Contact number: Reason for call: CALLED WITH QUESTIONS RELATED TO AUDIOLOGY CONSULT HE WAS EXPECTING FOR [facility] AND ALSO WANTED [facility] APPT LETTERS REMAILED TO HIM. NO AUDIOLOGY CONSULT PLACED AT THIS TIME. REQUESTED TO SPEAK TO GEOPHYSICS SCIENTIST REGARDING HIS FRUSTRATIONS GETTING A CONSULT PLACED. CALL WAS TRANSFERRED TO GEOPHYSICS SCIENTIST Rick GALICIA FOR FURTHER ASSISTANCE. CARDIOLOGY [facility] AND [facility] IMAGING APPT LETTERS WERE PRINTED FOR MAIL OFF TODAY. Time Spent: 23:50 /emani/ PRIETO GASCA ADVANCED NUTRITION EDUCATOR Signed: 12/28/2024 13:17 PRIETO GASCA-[facility]
--- OUTSIDE RECORDS SUMMARY | 2025-01-11 20:46 | XMS_ITS ---
Author Name [place] Address [address] [place] [address] Care Team Providers Care Mortgage Clerk Name Role Phone BRITTANY BUCHANAN Primary Care [...] Pérez AETNA VISION AETNA VISIO N [facility] R Jan 02, 2022 [id number] [phone] [place] ILLIP PATIENT AETNA VISION VISION AETNA VISIO N [facility] Jan 02, 2022 [id number] [place] ILLIP PATIENT EXPRESS SCRIPTS TRICA RE DODA Oct 04, 2017 DODA [id number] [place] ILLIP PATIENT (WNR) NONBI LLABL E Sep 03, 2010 NONBILL ABLE [id number] [place] ILLIP PATIENT [facility] 2024 TRICA RE SELEC T Oct 04, 2024 SELECT [id number] [place],PH ILLIP PATIENT [facility] 2024 JACKY VOGEL T WNR Oct 04, 2024 SELECT [id number] [phone] [place] ILLIP PATIENT Selected Encounter This section includes the information on record at [place] for the Encounter. Date/Time Encounter Type Encounter Description Reason Provider Source Apr 23, 2024 10:44 AM QNHP OL DIG ASSMT&MGMT 11-20 CLINICAL PHARMACY ICD-10-CM L03.90 Cellulitis, unspecified MAMI MACDONALD Lynnette Encounter Template Text not used by [place] Assessments - Encounter Diagnoses This section includes the primary and secondary diagnoses documented for the Encounter. Date/Time Primary/Secondary Diagnosis Diagnosis Name Provider Source Apr 23, 2024 10:49 AM PRIMARY Cellulitis, unspecified [facility] Apr 23, 2024 10:49 AM SECONDARY Encounter for therapeutic drug level monitoring [facility] Plan of Treatment: Future Appointments (+ 6 months) and Future Tests (+/- 45 days) The Plan of Treatment section includes future care activities for the patient from all [place] [facility]. This section includes future appointments and future orders which are active, pending or scheduled. Future Appointments This section includes appointments that were scheduled to occur 6 months from the date of the Encounter, up to a maximum of 20 appointments. The data comes from all [place] treatment facilities. Appointment Date/Time Appointment Type Appointme nt Facility Name May 02, 2024 09:00 AM AMBULATORY - SURGERY [facility] May 16, 2024 12:30 PM AMBULATORY - SURGERY [facility] Aug 04, 2024 02:00 PM AMBULATORY - MEDICINE [facility] Oct 20, 2024 09:00 AM AMBULATORY - MEDICINE [facility] Radiology Reports: +/- 30 days of [...] 10:43 AM U/S ABD COMPLETE: MEGHANN ROME [id number] -1965 M Exm Date: APR 19, 2024@10:43 Req Phys: OK HENRY Pat Loc: CHUCK ATKINSON (Req'g Loc) Img Loc: ULTRASOUND Service: [place] [address] (Case [id number] COMPLETE) U/S ABD COMPLETE (US Detailed) CPT:57797 Reason for Study: SEE CLINICAL HISTORY Clinical History: REASON FOR EXAM:Other (provide detailed justification for request) low platelets PERTINENT PATIENT HISTORY: PROVIDER [id number]# EMPHASIS ON LIVER/SPLEEN Report Status: Verified Date Reported: APR 19, 2024 Date Verified: APR 19, 2024 Rotary Saw Operator E-Sig: Report: Abdomen ultrasound. Ultrasound performed and [...] Interpreting Staff: DEVON BYRD, RADIOLOGIST Verified by senior environmental technician for DEVON BYRD /DEVON COTA-D [facility] Apr 18, 2024 07:17 AM FOOT-RIGHT 3 OR MO RE VIEWS: MEGHANN ROME [id number] -1965 M Exm Date: APR 18, 2024@07:17 Req Phys: CAROLANN KATZ Pat Loc: DEDRA POD/ATT1/LD (Req'g Loc) Img Loc: CDD RADIOLOGY Service: [place] [address] (Case [id number] COMPLETE) FOOT-RIGHT 3 OR MORE VIEWS (RAD Detailed) CPT:76341 Reason for Study: 1st toe trauma Clinical History: 1st toe trauma Report Status: Verified Date Reported: APR 18, 2024 Date Verified: APR 18, 2024 Rotary Saw Operator E-Sig: Report: FOOT-RIGHT 3 OR MORE VIEWS [...] the prior exam. READING PHYSICIAN: Nawaf Knox -[id number] 04/18/2024 12:42 CDT [facility] National Teleradiology Program [phone] (For Medical Practitioner Use Only) Attention Patients / Veterans: If you have questions or concerns about these test results, please contact your ordering provider or primary care team. Primary Diagnostic Code: NO ALERT REQUIRED Primary Interpreting Staff: OUTSIDE SERVICE RADIOLOGY, Staff Physician / RADIOLOGY,OUTSIDE SERVICE [facility] Pathology Reports: +/- 30 days [...] PM LR MICROBIOLOGY RE PORT: Reporting Lab: [facility] [IA# [id number]] [address] [place] [address] Accession [UID]: [id number] [[id number]] Received: Apr 18, 2024@13:13 Collection sample: SWAB [...] --=--=--=--=--=--=--=--=-- Performing Laboratory: Bacteriology Report Performed By: [facility] [IA# [id number]] [address] [place] [address] [facility]ON V[facility]SQUEZ [facility] Encounter Notes: All associated encounter notes This section contains the clinical notes associated to the Encounter. Date/Time Encounter Note(s) Provider Source Apr 23, 2024 10:44 AM PHARMACY NOTE: LOCAL TITLE: PHARMACY CULTURE REVIEW STANDARD TITLE: PHARMACY NOTE DATE OF NOTE: APR 23, 2024@10:44 ENTRY DATE: APR 23, 2024@10:44:54 AUTHOR: MAMI MACDONALD EXP COSIGNER: URGENCY: STATUS: COMPLETED Antimicrobial stewardship pharmacist alerted to culture results. Brief HPI: Patient is a 59 yr old with PMH significant for but not limited to Afib, HL, who was seen by podiatry 04/18 d/t injury to toe. Cultures collected at that time and pt discharged with amox/clav. Culture returned with 3 organisms, 2 of which were resistant to amox/clav. Allergies: Patient has answered NKA Weight: 242 lb [109.77 kg] (02/16/2024 07:59) Height: 74 in [188.0 cm] (02/16/2024 07:59) Creatinine: Collection DT Specimen Test Name Result Units Ref Range 02/16/2024 08:27 PLASMA!! CREATININE 0.79 mg/dL 0.72 - 1.25 !! Indicates COMMENTS AVAILABLE...Refer to Interim Lab Report. eGFR: Collection DT Specimen Test Name Result Units Ref Range 02/16/2024 08:27 PLASMA!! eGFR (CKD-EPI) >90 SEE EVAL !! Indicates COMMENTS AVAILABLE...Refer to Interim Lab Report. Recent cultures: Test(s) ordered: CULTURE, WOUND-SUPERFICIAL.... completed: Apr 22, 2024 * BACTERIOLOGY FINAL REPORT => Apr 22, 2024 11:19 TECH CODE: [id number] GRAM STAIN: RARE WBCS, NO ORGANISMS SEEN CULTURE RESULTS: 1. KLEBSIELLA AEROGENES 2. MYROIDES ODORATIMIMUS 3. PROTEUS VULGARIS GROUP ANTIBIOTIC SUSCEPTIBILITY TEST RESULTS: 1. KLEBSIELLA AEROGENES : 2. MYROIDES ODORATIMIMUS : : 3. PROTEUS VULGARIS GROUP : : : AMIKACIN...................... S R S AMOXICILLIN/CLAVULANATE....... R S AMP/SULBACTAM................. R* I AMPICILLIN.................... R* R AZTREONAM..................... S R S CEFAZOLIN..................... R R CEFEPIME...................... S R S CEFOTAXIME.................... S R S CEFOXITIN..................... R S CEFTAZIDIME................... S R S CEFTAZ/AVIBACTAM.............. S CEFTRIAXONE................... S R R CEFUROXIME.................... S R CIPROFLOXACIN................. S S S ERTAPENEM..................... S S GENTAMICIN.................... S R S IMIPENEM...................... I LEVOFLOXACIN.................. S S S MEROPENEM..................... S S S MEROPEN/VABORBACTAM........... S MOXIFLOXACIN.................. S S PIPER/TAZOBACTAM.............. S S S TETRACYCLINE.................. S S R* TIGECYCLINE................... S R* TOBRAMYCIN.................... S R S TRIMETH/SULFA................. S S S Assessment/Plan: Difficult to interpret this culture as it is a superficial swab so some organisms may be colonization vs infection. However, will alert podiatry to review. If pt clinically improving on amox/clav it is likely appropriate to just finish the course. If pt not clinically improving and/or worsening, could consider changing agents to an agent such as bactrim 2DS tabs po BID x 5 days. Time spent reviewing chart: 15 min. PBM PharmD Pharmacotherapy Rem V12: PHARMACIST INTERVENTIONS: ANTIMICROBIAL STEWARDSHIP AND SURVEILLANCE Medication and/or microbiology monitoring, no dosage change required, continue to monitor and assess /emani/ Mami Macdonald PharmD, BCPS, BCCCP Clinical Pharmacist, Antimicrobial Stewardship Signed: 04/23/2024 10:49 Receipt Acknowledged By: 04/24/2024 06:31 /emani/ YENY LESTER ATTENDING-PHYSICIAN MAMI MACDONALD-CDD [facility]
--- OUTSIDE RECORDS SUMMARY | 2025-01-11 20:46 | XMS_ITS ---
Author Name [facility] [place] Organization [place] Address [address] [place] [address] Care Team Providers Care Manager Plant Name Role Phone CHANEL BRITTANY Primary Care [...] Policy Pérez AETNA VISION AETNA VISIO N [facility] Jan 02, 2022 [id number] [facility] [phone] [place] ILLIP PATIENT AETNA VISION VISION AETNA VISIO N [facility] Jan 02, 2022 [id number] [place],PH ILLIP PATIENT EXPRESS SCRIPTS TRICA RE DODA Oct 04, 2017 DODA [id number] ROME,PH ILLIP PATIENT (WNR) NONBI LLABL E Sep 03, 2010 NONBILL ABLE [id number] ROME,PH ILLIP PATIENT [facility] 2024 TRICA RE SELEC T Oct 04, 2024 [facility] [id number] [place],PH ILLIP PATIENT [facility] 2024 JACKY Carbone WNR Oct 04, 2024 [facility] [id number] 43 [place] ILLIP PATIENT Selected Encounter This section includes the information on record at [place] for the Encounter. Date/Time Encounter Type Encounter Description Reason Pro vider Source Oct 30, 2024 11:23 AM Outpatient Encounter ADMIN PAT ACTIVTIES (MASNONCT) IHE Encounter Template Text not used by [place] Plan of Treatment: Future Appointments (+ 6 months) and Future Tests (+/- 45 days) The Plan of Treatment section includes future care activities for the patient from all [place] [facility]. This section includes future appointments and future orders which are active, pending or scheduled. Future Appointments This section includes appointments that were scheduled to occur 6 months from the date of the Encounter, up to a maximum of 20 appointments. The data comes from all [facility] facilities. Appointment Date/Time Appointment Type Appointme nt Facility Name Nov 30, 2024 09:30 AM [facility] Dec 12, 2024 01:00 PM AM[facility]ULATORY - NONE [facility] Jan 11, 2025 10:00 AM AMBULATORY - NONE [facility] February 07, 2025 10:00 AM AMBULATORY - NONE [facility] Active, Pending, and Scheduled Orders This section includes a listing of several types of active, pending, and scheduled orders, including clinic medications orders, diagnostic test orders, procedure orders and consult orders; where the start date of the order is 45 days before the date of the Encounter or 45 days after the date of theEncounter. The data comes from all [facility]. Test Date/Time Test Type Test Details Facility Name Dec 07, 2024 09:28 AM Consult Order COMMUNITY CARE-DS ROUTINE OPT Cons Drafter Structural's Choice [facility] Lab Results: +/- 30 days of the encounter This section includes the Chemistry and Hematology Lab Results on record with [place] for the patient. Radiology Reports and Pathology Reports are provided separately, in subsequent sections. Lab Results This section contains the Chemistry/Hematology Results that were resulted 30 days before or 30 daysafter the date of the Encounter. Date/Time Source Result Type Result - Unit Interpretation Reference Range Specimen Type Comment Nov 09, 2024 12:00 AM [facility] X1 SCREEN FECES Specimen Typ e: FECES No comment entered. Ordering Provider: ULICES GREENFIELD Report Released Date/Time: Oct 20, 2024 09:44 AM Reporting Lab: [address] [address] Performing Lab: [address] [address] OCCULT BLOOD (FIT) #1 OF 1 Negative Nega tive Oct 20, 2024 09:47 AM [facility] B12 VITAMIN PLASMA Specimen Type: PLASM [...] Oct 20, 2024 09:44 AM Reporting Lab: [address] [address] Performing Lab: [address] [address] B12 VITAMIN 402 pg/mL 213-816 Oct 20, 2024 09:47 AM [facility] PSA S SKYLA Specimen Type: SERUM No comment entered. Ordering Provider: ULICES GREENFIELD Report Released Date/Time: Oct 20, 2024 09:44 AM Reporting Lab: [address] [address] Performing Lab: [address] [address] PSA 1.710 ng/mL 0-3.999 Oct 20, 2024 09:47 AM [facility] B[facility] ([employer]) PLASMA Specimen Type: PLASMA Comment: BNP results less than or equal to 100 pg/ml are loan servicing representative of normal values in patients without CHF. BNP results greater than 100 pg/ml are considered abnormal and suggestive of CHF. Higher BNP concentrations in the first 72 hours after Acute Coronary Syndrome are associated with an increased risk of , myocardial infarction and CHF. Ordering Provider: ULICES GREENFIELD Report Released Date/Time: Oct 20, 2024 09:44 AM Reporting Lab: [address] [address] Performing Lab: [address] [address] BNP (RAMÍREZ) 273 pg/mL H 0-100 Oct 20, 2024 09:47 AM [facility] LIPID PROFILE PLASMA Specimen Type: PLASM A [...] Oct 20, 2024 09:44 AM Reporting Lab: [address] [address] Performing Lab: [address] [address] CHOLESTEROL 163 mg/dL 0-199 TRIGLYCERIDE 166 mg/dL H 0-149 HDL CHOLESTEROL 28 mg/dL L 40-69 DIRECT LDL CHOL. 122 mg/dL H 0-100 Oct 20, 2024 09:47 AM [facility] CBC/PLT BLOOD Specimen Type: BLOOD No comment entered. Ordering Provider: ULICES GREENFIELD Report Released Date/Time: Oct 20, 2024 09:44 AM Reporting Lab: [address] [address] Performing Lab: [address] [address] WBC 5.2 10*3/uL 5.0-10.0 RBC 5.64 10*6/uL 4.6-6.2 HGB 14.8 g/dL 14.0-18.0 HCT 46.5 42.0-52.0 MCV 82.4 fL 80.0-94.0 MCH 26.2 pg L 27.0-31.0 MCHC 31.8 g/dL L 32.0-36.0 PLT 211 10*3/uL 150-450 MPV 12.1 fL 9.0-13.1 RDW 13.1 11.0-16.0 NRBC 0.0 0.0-0.0 Oct 20, 2024 09:47 AM [facility] TSH PLASMA Specimen Type: PLASM A [...] Oct 20, 2024 09:44 AM Reporting Lab: [address] [address] Performing Lab: [address] [address] TSH 2.2190 m[IU]/mL 0.3500-4.9400 Oct 20, 2024 09:47 AM [facility] PANEL 5 PLASMA Specimen Type: PLASM A [...] Oct 20, 2024 09:44 AM Reporting Lab: [address] [address] Performing Lab: [address] [address] CREATININE 0.89 mg/dL 0.72-1.25 UREA NITROGEN 20 [...] Encounter. Date/Time Encounter Note(s) Provider Source Oct 30, 2024 11:23 AM PRIMARY CARE ADMIN ISTRATIVE NOTE: LOCAL TITLE: PC ADMINISTRATIVE NOTE STANDARD TITLE: PRIMARY CARE ADMINISTRATIVE NOTE DATE OF NOTE: OCT 30, 2024@11:23 ENTRY DATE: OCT 30, 2024@11:23:46 AUTHOR: EDI PRECIADO EXP COSIGNER: URGENCY: STATUS: COMPLETED records received from [facility] and placed in pcp box. /emani/ EDI PRECIADO TUG BOAT CAPTAIN Signed: 10/30/2024 11:24 EDI PRECIADO-CHRISTINA [facility]
--- OUTSIDE RECORDS SUMMARY | 2025-01-11 20:46 | XMS_ITS | Encounter Summary ---
Author Name [facility] [place] [facility] [place] Organization [facility] [place] Address [address] [place] [address] Care Team Providers Care Society Reporter Name Role Phone CHANEL BRITTANY Primary Care [...] Pérez AETNA VISION AETNA VISIO N [facility] Jan 02, 2022 [id number] [phone] [place] PATIENT AETNA VISION VISION AETNA VISIO N [facility] R Jan 02, 2022 [id number] [place] ILLIP PATIENT EXPRESS SCRIPTS TRICA RE DODA Oct 04, 2017 DODA [id number] [place] ILLIP PATIENT (WNR) NONBI LLABL E Sep 03, 2010 NONBILL ABLE [id number] [place] ILLIP PATIENT [facility] 2024 TRICA RE SELEC T Oct 04, 2024 [facility] [id number] [place] ILLIP PATIENT [facility] 2024 JACKY Carbone WNR Oct 04, 2024 [facility] [id number] 43 [place]LL[place] PATIENT Selected Encounter This section includes the information on record at [place] for the Encounter. Date/Time Encounter Type Encounter Description Reason Provider Source Apr 18, 2024 08:30 AM REMOVAL OF NAIL PLATE PODIATRY ICD-10-CM L60.1 Onycholysis YENY LESTER Lynnette Encounter Template Text not used by [place] Assessments - Encounter Diagnoses This section includes the primary and secondary diagnoses documented for the Encounter. Date/Time Primary/Secondary Diagnosis Diagnosis Name Provider Source Apr 18, 2024 08:30 AM PRIMARY Onycholysis YENY LESTER [facility] Apr 18, 2024 08:30 AM SECONDARY Cellulitis of right toe YENY LESTER [facility] Apr 18, 2024 08:30 AM SECONDARY Contusion of right lesser toe(s) w damage to nail, init YENY LESTER [facility] Apr 18, 2024 08:30 AM SECONDARY Nondisp fx of dist phalanx of r great toe, init for opn fx YENY LESTER [facility] Apr 18, 2024 08:30 AM SECONDARY Pain in right toe(s) YENY LESTER [facility] Plan of Treatment: Future Appointments (+ 6 months) and Future Tests (+/- 45 days) The Plan of Treatment section includes future care activities for the patient from all [place] treatmentfacilities. This section includes future appointments and future orders which are active, pending or scheduled. Future Appointments This section includes appointments that were scheduled to occur 6 months from the date of the Encounter, up to a maximum of 20 appointments. The data comes from all [place] treatment facilities. Appointment Date/Time Appointment Type Appointme nt Facility Name Apr 19, 2024 11:00 AM AM[facility]ATORY - NONE [facility] [facility] Apr 19, 2024 04:00 PM [facility]ORY - NONE [facility] [facility] May 02, 2024 09:00 AM AMBULATORY - SURGERY [place] [facility] May 16, 2024 12:30 PM AMBULATORY - SURGERY [facility] Aug 04, 2024 02:00 PM AMBULATORY - MEDICINE [facility] Vital Signs: All taken on the encounter date This section contains inpatient and outpatient Vital Signs collected on the date of the Encounter. Date/Time Temperature Pulse Blood Pressure Respiratory Rate SP02 Pain Height Weight Body Mass Index Source Apr 18, 2024 08:51 AM 98.4 56 135/78 18 [place] [facility] Apr 18, 2024 08:11 AM 98.4 56 135/78 97 0 [place] [facility] Radiology Reports: +/- 30 days of [...] the Encounter. The data comes from all [place] treatment facilities. Date/Time Radiology Report Provider Source Apr 19, 2024 10:43 AM U/S ABD COMPLETE: MEGHANN ROME [id number] -[id number] M Ex Date: APR 19, 2024@10:43 Req Phys: OK HENRY Pat Loc: CHUCK ATKINSON (Req'g Loc) Im Loc: ULTRASOUND Service: [place] [address] (Case [id number] COMPLETE) U/S ABD COMPLETE (US Detailed) CPT:70056 Reason for Study: SEE CLINICAL HISTORY Clinical History: REASON FOR EXAM:Other (provide detailed justification for request) low platelets PERTINENT PATIENT HISTORY: PROVIDER [id number]# EMPHASIS ON LIVER/SPLEEN Report Status: Verified Date Reported: APR 19, 2024 Date Verified: APR 19, 2024 Culinary Director E-Sig: Report: Abdomen ultrasound. Ultrasound performed and [...] Interpreting Staff: DEVON BYRD, RADIOLOGIST Verified by glass carrier for DEVON BYRD /DEVON COTA-D [facility] Apr 18, 2024 07:17 AM FOOT-RIGHT 3 OR MO RE VIEWS: MEGHANN ROME [id number] -[id number] M Exm Date: APR 18, 2024@07:17 Req Phys: CAROLANN AKTZ Loc: [facility]/ATT1/LD (Req'g Loc) Img Loc: CDD RADIOLOGY Service: [place] [address] (Case [id number] COMPLETE) FOOT-RIGHT 3 OR MORE VIEWS (RAD Detailed) CPT:98270 Reason for Study: 1st toe trauma Clinical History: 1st toe trauma Report Status: Verified Date Reported: APR 18, 2024 Date Verified: APR 18, 2024 Culinary Director E-Sig: Report: FOOT-RIGHT 3 OR MORE VIEWS HISTORY: 1st toe trauma COMPARISON: The exam from 10/05/2013 could not be retrieved. Comparison is made to the written report. TECHNIQUE: 3 view(s) of the right foot, submitted to the [place] National Teleradiology Program (NTP) for interpretation. FINDINGS: [...] the prior exam. READING PHYSICIAN: Nawaf Knox -[phone] 04/18/2024 12:42 CDT [facility] National Teleradiology Program [phone] (For Medical Practitioner Use Only) Attention Patients / Veterans: If you have questions or concerns about these test results, please contact your ordering provider or primary care team. Primary Diagnostic Code: NO ALERT REQUIRED Primary Interpreting Staff: OUTSIDE SERVICE RADIOLOGY, Staff Physician / RADIOLOGY,OUTSIDE SERVICE [facility] Pathology Reports: +/- 30 days of [...] the Encounter. The data comes from all [place] treatment facilities. Date/Time Pathology Report Provider Source Apr 18, 2024 01:13 PM LR MICROBIOLOGY RE PORT: Reporting Lab: [facility] [CLIA# [id number]] [address] [place] [id number] Accession [UID]: [id number] [[id number]] Received: Apr 18, 2024@13:13 Collection sample: SWAB [...] --=--=--=--=--=--=--=--=-- Performing Laboratory: Bacteriology Report Performed By: [facility] [CLIA# [id number]] [address] [place] [phone] [facility] Encounter Notes: All associated encounter notes This section contains the clinical notes associated to the Encounter. Date/Time Encounter Note(s) Provider Source Apr 24, 2024 04:35 PM ADDENDUM: LOCAL TITLE: Addendum STANDARD TITLE: ADDENDUM DATE OF NOTE: APR 24, 2024@16:35:18 ENTRY DATE: APR 24, 2024@16:35:20 AUTHOR: YENY LESTER EXP COSIGNER: URGENCY: STATUS: COMPLETED ---- MICROBIOLOGY ---- Reporting Lab: [facility] [CLIA# [id number]] [address] [place] [id number] Accession [UID]: [id number] [[id number]] Received: Apr 18, 2024@13:13 Collection sample: SWAB [...] 3. PROTEUS VULGARIS GROUP : : : AMIKACIN................... ... S R S AMOXICILLIN/CLAVULANATE.... ... R S AMP/SULBACTAM.............. ... R* I AMPICILLIN................. ... R* R AZTREONAM.................. ... S R S CEFAZOLIN.................. ... R R CEFEPIME................... ... S R S CEFOTAXIME................. ... S R S CEFOXITIN.................. ... R S CEFTAZIDIME................ ... S R S CEFTAZ/AVIBACTAM........... ... S CEFTRIAXONE................ ... S R R CEFUROXIME................. ... S R CIPROFLOXACIN.............. ... S S S ERTAPENEM.................. ... S S GENTAMICIN................. ... S R S IMIPENEM................... ... I LEVOFLOXACIN............... ... S S S MEROPENEM.................. ... S S S MEROPEN/VABORBACTAM........ ... S MOXIFLOXACIN............... ... S S PIPER/TAZOBACTAM........... ... S S S TETRACYCLINE............... ... S S R* TIGECYCLINE................ ... S R* TOBRAMYCIN................. ... S R S TRIMETH/SULFA.............. ... S S S Bacteriology Remark(s): CULTURE PENDING 04/19/2024 GRAM NEGATIVE RODS CULTURE PENDING 04/20/2024 =--=--=--=--=--=--=--=--=-- =--=--=--=--=--=--=--=--=-- =--=--=--=--=--=--=--=- Phone call today at 16:40: I spoke with patient and his , Arabella RomeSUZAN, to check on status and discussed the results above. states the wound and toe is looking much better, redness reducing, deep wound getting smaller/healing nicely. Patient denies any fever, chills, nausea, vomiting, sweats. He has been doing daily wound care and resting and elevating is much as possible. Wearing the surgical shoe whenever walking. Even though the wound is looking better, I would like patient to finish the Augmentin that is taken for 10 days. At the end of the 10 days if it is still red or an odor develops, start taking Rx Bactrim DS 1 tab p.o. twice daily x7 days. This will be mailed to him. Advised to continue local wound care, resting and using surgical shoe. Keep the right foot dry, use bandage cover. Follow-up at next appointment in [facility]. They appreciate the call. Duration 5 minutes. /emani/ YENY LESTER ATTENDING-PHYSICIAN Signed: 04/24/2024 16:52 Receipt Acknowledged By: 04/27/2024 11:26 /emani/ CAROLANN KATZ Chief, Podiatry Section --- Original Document --- 04/18/24 PODIATRY ATTENDING NOTE: SOAP Note SUBJECTIVE: The patient is a 59 year old MALE. Chief Complaint: WM RTC earlier than expected and is seen as a walk- in/overbook, complaining of painful right great toe after he dropped a 2x12 board on it will helping a friend, but was in flip flops on AM, which was 5 days ago. It bled profusely right after the injury, but his is a nurse practitioner and was able to control the bleeding with compression dressings. He has been applying bacitracin and DSD daily since then. He denies fever, chills, nausea, vomit, sweats. Past Medical History: Active problems - Computerized Problem List is the source for the followin. Lumbar spondylosis 2. Exposure to potentially hazardous substance ([facility] [id number]) 3. History of malignant basal cell neoplasm [...] and edema noted, No malodor nor lymphangiitis. NAILS: 1st right is lytic at the proximal aspect. During nail avulsion, a large chunk of nail bed/soft tissue was also loose and came off with the nail on the proximal lateral aspect (30% of nail bed). Open wound as a result of the nail bed and deeper area with exposed periosteum of the distal phalanx; this was not the area of the fracture found on x-ray. VASCULAR EVAL: DP = 1/4 b/l PT = 1/4 b/l CFT < 3 seconds distal halluces b/l Edema none b/l ankles, feet. NEUROLOGICAL EVALUATION: Full detection of semmes-kristie monofilament plantar aspects & distal digits, b/l. Achilles DTR's intact, b/l ORTHOPEDICS EVALUATION: Muscle strength is 5/5 and symmetrical b/l. Right hallux - POP over entire digit, farhana the nail bed. Pt is able to move the IPJ with mild pain. No sign of dislocation of IPJ. - no POP over first or second [...] 18, 2024 Date Verified: APR 18, 2024 Culinary Director E-Sig: Report: FOOT-RIGHT 3 OR MORE VIEWS HISTORY: 1st toe trauma COMPARISON: The exam from 10/05/2013 could not be retrieved. Comparison is made to the written report. TECHNIQUE: 3 view(s) of the right foot, submitted to the [place] National Teleradiology Program (NTP) for interpretation. FINDINGS: [...] stress fracture noted of the second metatarsal. IMPRESSION: Onycholysis due to contusion to right great toe with nail daamge, initial encounter. Open fracture nondisplaced right hallux, initial encounter. Cellulitis right hallux mild. PLAN: Discussed with patient their clinical findings, etiology, diagnosis, treatment options and prognosis. I reviewed right foot x-rays with patient and answered his questions to his satisfaction. Due to the lytic nature and developing cellulitis periungually, advised a total nail avulsion to evaluate the nailbed. Pt opts for total nail avulsion. iMed consent reviewed and signed. pt advised of estimated recovery time. No guarantees given nor implied. Pt made aware of risks including but not limited to: chronic pain, recurrence of deformity, over/under correction of deformity, need for revisional surgery, need for orthopedic shoes for life, infection, swelling, delayed healing. Pt states full understanding. Prior to procedure, the operative/procedure team members verbally confirmed: Correct patient identity (2 identifiers) Correct operation/procedure to be performed Correct operative/procedure site/side Correct consent form Correct position Correct imaging labeled and displayed Correct implant(s) available, if applicable Special equipment available, if applicable Allergies confirmed Following sterile prep, local block of right 1st toe with 5cc 2% lidocaine plain at its base. Tourniquette applied to base of toe. With hemostate, the entire nail plate was removed and noted a chunk of the lateral proximal nail bed came off with the nail, debrided all loose soft tissue. C+S was taken of this deep wound over the dorsal lateral periosteum of the distal phalanx. The wound was irrigated with copious amounts of sterile saline. Tourniquette removed resulting in capillaryfill time < 3 seconds. The toe was dressed with betadine and bulky ddry sterile dressing with 2x2 gauze, kerlix and coban. Right foot fitted for flat surgical shoe. Patient to wear this due to the fracture and bulky dressing that is needed to care for this wound. Postop instructions given w/ dressing supplies. Pt to call the office if any SOI develop/worsen. Dispensed bandage cover to keep the right foot dry and clean. Do not submerge the right foot in water. Patient understands. Rest and elevate foot is much as possible. Ice 15 minutes 3 times daily for pain. RX AUGMENTIN 875MG BID PC X 10 DAYS. May change this depending on C+S results. RTC: 2 weeks [facility] for f/up on open wound. I spent 33 minutes, reviewing history, performing an exam and evaluation, entering clinical information EHR, interpreting results, counseling patient/family/caregiver, reviewing x-rays/mri/labs, ordering meds/test/procedures, referring and communicating with consulting health home health aide caregiver, and care coordination. Total time for this encounter does not include time spent performing any separately reported procedure or service by me or the clinical staff. /emani/ YENY LESTER ATTENDING-PHYSICIAN Signed: 04/24/2024 16:34 Receipt Acknowledged By: 04/26/2024 11:37 /emani/ CAROLANN KATZ Chief, Podiatry Section YENY LESTER [facility]
--- OUTSIDE RECORDS SUMMARY | 2025-01-11 20:46 | XMS_ITS | Continuity of Care Document ---
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 It does not include entries that were removed or entered in error. 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 Condition [facility] BACKACHE NOS Active Condition [facility] Basal cell carcinoma of face Active Condition [facility] Cardiomyopathy (SCT 65709440) Active Condition Apr 04, 2021 Entered By: ARNOLD WHITNEY Comment: See 2012 cath report [facility] Chews tobacco Active Condition [facility] Dilated cardiomyopathy Active Condition [facility] Elevated blood-pressure reading without diagnosis of hypertension Active Condition [facility] Erectile Dysfunction (SCT 857443336) Active Condition [facility] Exposure to potentially hazardous substance (SCT 835685518418273) Active Condition [facility] Extrasystole * (ICD-9-CM 427.60) Active Condition [facility] Hearing Loss (SCT 45567320) Active Condition [facility] Hematochezia * (ICD-9-CM 578.1) Active Condition [facility] History of malignant basal cell neoplasm of skin Active Condition [facility] HTN - Hypertension (SCT 37541821) Active Condition Dec 06, 2024 Entered By: ULICES GREENFIELD Comment: [facility], Swati Maddox, 10/30/24 [facility] Hyperkalaemia Active Condition [facility] Hyperlipidemia Active Condition [facility] Hyperlipidemia (SNOMED CT 26529966) Active Condition [facility] Knee: arthralgia * (ICD-9-CM 719.46) Active Condition [facility] Lumbar spondylosis Active Condition [facility] Male erectile disorder (ICD-9-CM 302.72/607.84) Active Condition [facility] Neck pain (SNOMED CT 75315293) Active Condition [facility] Numbness * (ICD-9-CM 782.0) Active Condition [facility] Obesity (SCT 445028385) Active Condition [facility] Obstructive sleep apnea Active Condition [facility] Obstructive sleep apnea syndrome Active Condition [facility] Osteoarthritis of bilateral hip joints Active Condition [facility] OTHER GENERAL MEDICAL EXAMINATION FOR ADMINISTRATIVE PURPOSES Active Condition [facility] Pain in right knee (SNOMED CT 045127014231883) Active Condition [facility] Paroxysmal atrial fibrillation Active Condition [facility] Paroxysmal atrial fibrillation Active Condition Nov 24, 2017 Entered By: KADIE PINTO Comment: post DCCVFeb 2017 Entered By: KADIE PINTO Comment: 07/2012:: non obstructive CADFeb 2017 Entered By: KADIE PINTO Comment: 2011, non obstructive CADMar 2017 Entered By: KADIE PINTO Comment: 11/26/2017: echo: mild LV dilatation with low normal systolic function, EF 50-55%, mild left and right atrial dilatation, mild TRMar 2017 Entered By: KADIE PINTO Comment: 12/03/2017: stress echo: exercised 10' on raffi protocol, no ischemic changes, isolated unifocal pvcs at rest resolving with exercise, achieved 80% of MPR, no symptomsMar 2017 Entered By: KADIE PINTO Comment: low normal LVEF, otherwise no WMA post exercise. Unremarkable stress echoMar 2017 Entered By: KADIE PINTO Comment: 11/26/2017: event monitor: 13 days 14 hours: HR of 42 bpm, HR of 190 bpm average AHR of 66 bpm. NSR 5 SVT run with the fastest interval lasting 10 beats with a max rate of 190 bpm, longest lastingMar 2017 Entered By: KADIE PINTO Comment: 16 beats with an average rate of 105 bpm. some episodes of SVT may be possible atral tachycardia.Jan 26, 2018 Entered By: KADIE PINTO Comment: 11/24/2017: EKG: sinus bradycardia, no evident afibApr 2017 Entered By: KADIE PINTO Comment: 01/26/2018: apixaban to be discontinued, start on ECASA 81 mg dailyApr 2018 Entered By: KADIE PINTO Comment: 01/09/2019: EKG: NSR, HR 60 bpmSep 2020 Entered By: KADIE PINTO Comment: 06/25/2021: EKG: sinus bradycardia with marked sinus arrhythmia, NSIVCD [facility] Prediabetes ([facility] [id number]) Active Condition [facility] Right hip pain Active Condition [facility] SENSORINEURAL HEARING LOSS, UNSPECIFIED Active Condition [facility] Skin lesion Active Condition [facility] Sleep Apnea ([facility] 59250860) Active Condition [facility] TINNITUS, UNSPECIFIED Active Condition [facility] Tobacco dependence, continuous Active Condition [facility] Tobacco user Active Condition [facility] Chest Pain ([facility] 07921837) Inactive Condition 04/04/2021 [facility] Diagnosis: ICD-10-CM I48.0 Paroxysmal atrial fibrillation Active Diagnosis [facility] Diagnosis: ICD-10-CM Z51.81 Encounter for therapeutic drug level monitoring Active Diagnosis [facility] Diagnosis: ICD-10-CM I48.91 Unspecified atrial fibrillation Active Diagnosis [facility] Diagnosis: ICD-10-CM Z71.9 Counseling, unspecified Active Diagnosis [facility] Diagnosis: ICD-10-CM S92.424D Nondisp fx of dist phalanx of r great toe, 7thD Active Diagnosis [facility] Diagnosis: ICD-10-CM D69.6 Thrombocytopenia, unspecified Active Diagnosis [facility] Diagnosis: ICD-10-CM L03.90 Cellulitis, unspecified Active Diagnosis [facility] Diagnosis: ICD-10-CM S90.221A Contusion of right lesser toe(s) w damage to nail, init Active Diagnosis [facility] Diagnosis: ICD-10-CM L60.1 Onycholysis Active Diagnosis [facility] Diagnosis: ICD-10-CM R68.89 Other general symptoms and signs Active Diagnosis [facility] Diagnosis: ICD-10-CM D18.01 Hemangioma of skin and subcutaneous tissue Active Diagnosis [facility] Diagnosis: ICD-10-CM M47.896 Other spondylosis, lumbar region Active Diagnosis [facility] Diagnosis: ICD-10-CM B35.1 Tinea unguium Active Diagnosis [facility] Medications Combined list of outpatient medications from Department of Defense and Veterans Affairs facilities.Medications provided include 1) outpatient medications from the last 15 months, and 2) patient-reported medications. Medication Details Route Status Patient Instructions Prescription Expires Prescription Number Last Dispense Date Ordering Provider Order Date Order Qty Source ALBENDAZOLE 200MG TAB TAKE TWO TABLETS BY MOUTH ONCE FOR INFECTIO N -TAKE WITH FOOD ORAL 09/03/2024 [id number] RUFINO HENRY D 2023 2 [facility] AMOXICILLIN TRIHYDRATE 875MG/CLAVU LANATE K 125MG TAB TAKE 1 TABLET BY MOUTH TWICE A DAY AFTER MEALS FOR SKIN OR SOFT TISSUE INFECTIO N ORAL 05/18/2024 [id number] BELEN LESTER GERALDINE S 2023 20 [place] [facility] APIXABAN 5MG TAB TAKE ONE TABLET BY MOUTH TWICE A DAY ORAL ACTIVE GILLIANA NDREW C 2016 [facility] APIXABAN 5MG TAB TAKE ONE TABLET BY MOUTH TWICE A DAY ORAL ACTIVE Yuliana GREENFIELDIN S 2024 [facility] ASPIRIN 81MG TAB,EC TAKE ONE TABLET BY MOUTH IN THE MORNING ORAL ACTIVE Ruddy PINTO 2017 [facility] ASPIRIN 81MG TAB,EC TAKE ONE TABLET BY MOUTH EVERY DAY ORAL ACTIVE BEHUNINA NDREW C 2015 [facility] FUROSEMIDE 40MG TAB TAKE ONE TABLET BY MOUTH DAILY ORAL ACTIVE GINYuliana ROBB S 2024 [facility] LISINOPRIL 5MG TAB TAKE ONE-HALF TABLET BY MOUTH EVERY DAY ORAL ACTIVE Ofelia HAGEN 2015 [facility] METOPROLOL SUCCINATE 100MG TAB,SA TAKE ONE TABLET BY MOUTH ONCE DAILY ORAL ACTIVE IGAWA-ALEKSANDER XOCHITL LEMUS 2019 [facility] METOPROLOL SUCCINATE 200MG TAB,SA TAKE ONE-HALF TABLET BY MOUTH DAILY ORAL ACTIVE Yuliana GREENFIELD ROBB S 2021 [facility] METOPROLOL SUCCINATE 200MG TAB,SA TAKE ONE-HALF TABLET BY MOUTH ORAL ACTIVE XIAO,B RENT A 2015 [facility] ROSUVASTATI N TAB 40MG MOUTH AT BEDTIME ORAL ACTIVE GIN,K ROBB S 2022 [facility] SILDENAFIL CITRATE 100MG TAB TAKE ONE-HALF TABLET BY MOUTH PRN ORAL ACTIVE XIAO,B RENT A 2015 [facility] SILDENAFIL CITRATE 100MG TAB TAKE ONE-HALF TABLET BY MOUTH 1 HOUR PRIOR TO SEXUAL ACTIVITY ORAL ACTIVE [facility] 2017 [facility] SIMETHICONE 80MG TAB,CHEW CHEW FOUR TABLETS BY MOUTH ONCE FOR SCAN -TAKE 4 TABLETS AT 10PM NIGHT BEFORE ULTRASOU ND, WITH FULL GLASS OF WATER. ORAL 04/19/2024 [id number] HENRYLES LIE D 2023 4 [facility] SIMVASTATIN 40MG TAB TAKE ONE TABLET BY MOUTH ONCE DAILY ORAL ACTIVE [facility] Ofelia 2019 [facility] SIMVASTATIN 80MG TAB TAKE ONE-HALF TABLET BY MOUTH AT BEDTIME ORAL ACTIVE RICHARD FRANCO 2009 [facility] SULFAMETHOX AZOLE 800MG/TRIME THOPRIM 160MG TAB TAKE 1 TABLET BY MOUTH TWICE A DAY FOR SKIN OR SOFT TISSUE INFECTIO N ORAL 05/24/2024 [id number] BELEN LESTER GERALDINE S 2023 14 [place] [facility] Allergies, Adverse Reactions, Alerts Combined list of allergies from Department of Defense and Veterans Affairs facilities. It does not include entries that were removed or entered in error. Substance Category Reaction Severity Reaction type Status Date Reported Comments Source LIPITOR Propensity to adverse reactions to drug (finding) Muscle pain active 2 [place] [facility] Immunizations Combined list of available immunizations from the Department of Defense and Veterans Affairs facilities. Immunization Series Date Given Administered By Site Reaction Lot Number CVX Code Drug Stock Lifter Status Comments Source INFLUENZA, SPLIT VIRUS, TRIVALENT, PF 2024 TIANNA ALVARES N RIGHT DELTO ID [id number] 140 complet ed [facility] TDAP 2022 [place] PAINTING RIGHT DELTO ID [id number] 115 complet ed [facility] INFLUENZA, INJECTABLE, MDCK, PRESERVATIVE FREE, QUADRIVALENT 2021 171 complet ed [facility] PNEUMOCOCCAL CONJUGATE PCV20, POLYSACCHARID E [id number] CONJUGATE, ADJUVANT, PF 2021 216 complet ed [place] INFLUENZA, UNSPECIFIED FORMULATION 2020 88 complet ed [place] [facility] ZOSTER RECOMBINANT 2020 187 complet ed HISTORICA L INFORMATI ON - FROM PATIENT'S WRITTEN RECORD, [place] [facility] IN[facility], UNSPECIFIED FORMULATION 2020 88 complet ed DAVID Fox [facility] ZOSTER RECOMBINANT 2020 187 complet ed HISTORICA L INFORMATI ON - FROM PATIENT'S WRITTEN RECORD, [place] [facility] COVID-19 (PFIZER), MRNA, LNP-S, PF, 30 MCG/0.3 ML DOSE 2 2020 208 complet ed [place] [facility] COVID-19 (PFIZER), MRNA, LNP-S, PF, 30 MCG/0.3 ML DOSE 1 2020 208 complet ed [place] [facility] COVID-19 (PFIZER), MRNA, LNP-S, PF, 30 MCG/0.3 ML DOSE 1 2020 208 complet ed DEPARTM ENT [facility] INFLUENZA, UNSPECIFIED FORMULATION 2019 88 complet ed [facility] INFLU[facility], INJECTABLE, QUADRIVALENT, PRESERVATIVE FREE 2018 150 complet ed [facility] INFLUENZA, UNSPECIFIED FORMULATION 2017 88 complet ed JLV DEPART ENT [facility] INFLUENZA, UNSPECIFIED FORMULATION 2016 88 complet ed [facility] INFLUENZA, SEASONAL, INJECTABLE 2015 141 complet ed [facility] INFLUENZA, SEASONAL, INJECTABLE, PRESERVATIVE FREE 2014 140 complet ed [facility] INFLUENZA, UNSPECIFIED FORMULATION 2013 88 complet ed [facility] PNEUMOCOCCAL POLYSACCHARID E [id number] 2012 33 complet ed [employer], [id number], 05/21/14 [facility] TETANUS DIPHTHERIA AND PERTUSSIS (HISTORICAL) 2012 107 complet ed GlaxoSmit hKline, [id number], 01/20/15 [facility] TDAP 2012 115 complet ed per JEANINE [facility] INFLUENZA, UNSPECIFIED FORMULATION 2011 88 complet ed [facility] NOVEL INFLUENZA-H1N 1-09, ALL FORMULATIONS 2009 128 complet ed Sanofi Pasteur [facility] INFLUENZA, UNSPECIFIED FORMULATION 2007 88 complet ed [facility] TD(ADULT) UNSPECIFIED FORMULATION 2002 139 complet ed [facility] N Results Combined list of recent chemistry, hematology and other laboratory results from Department of Defense and Veterans Affairs, ranging from 15 months to all on record, depending upon the facility. Order Name Results Value Reference Range Date Interpretation Specimen Comments Source OCCULT BLOOD FIT X1 SCREEN HEMOGLOBIN .GASTROINT ESTINAL.LO WER [PRESENCE] IN STOOL BY IMMUNOASSA Y Negative 11/09 Specimen Type: FECES No comment entered. Ordering Provider: NELDA GREENFIELD S Report Released Date/Time: Oct 20, 2024 09:44 AM Reporting Lab: [facility] [address] [phone] Performing Lab: [facility] [address] [address] [facility] B12 VITAMIN COBALAMIN (VITAMIN B12) [MASS/VOLU ME] IN SERUM OR PLASMA 402 pg/mL 213 - 816 10/20 Specimen Type: PLASMA Comment: Estimated Glomerular Filtration Rate (eGFR) calculated using the 2020 Chronic Kidney Disease-Epi demiology (CKD-EPI) Collaborati on creatinine equation; units of measure are mL/min/1.73 m2. Results are only valid for adults (>=18 years) whose serum creatinine is in a steady state. eGFR calculation s are not valid for patients with acute kidney injury and for patients on dialysis. Creatinine- based estimates of kidney function may also be inaccurate in patients with reduced creatinine generation due to decreased muscle mass (e.g., malnutritio n, severe hypoalbumin emia, sarcopenia, chronic neuromuscul ar disease, amputations , severe heart failure or liver disease) and in patients with increased creatinine generation due to increased muscle mass (e.g., muscle builders, anabolic steroids) or increased dietary intake. As drug clearance is proportiona l to total GFR and not GFR indexed to body surface area (BSA), in individuals with a BSA substantial ly different than 1.73 m2, drug dosing should be based on the reported eGFR value de-indexed from BSA by multiplying by the individual' s BSA and dividing by 1.73. CKD is diagnosed based on abnormaliti es of kidney structure or function, present for >3 months, with implication s for health and disease. CKD is classified and staged based on cause, eGFR and albuminuria (quantified as urine albumin to creatinine ratio). An eGFR >60 mL/min/1.73 m2 in the absence of increased urine albumin excretion or structural abnormaliti es does not represent CKD. eGFR CKD Interpretat ion (mL/min/1.7 3 m2) stage >=90 G1 Normal 60-89 G2 Mild decrease 45-59 G3A Mild to moderate decrease 30-44 G3B Moderate to severe decrease 15-29 G4 Severe decrease <15 G5 Kidney failure Vitamin B12 test may not yield results when protein level of sample is too elevated. Ordering Provider: NELDA GREENFIELD IN S Report Released Date/Time: Oct 20, 2024 09:44 AM Reporting Lab: [facility] [address] [phone] Performing Lab: SARAH [address] [address] [facility] BNP (RAMÍREZ) NATRIURETI C PEPTIDE B [MASS/VOLU ME] IN SERUM OR PLASMA 273 pg/mL 0 - 100 10/20 H Specimen Type: PLASMA Comment: BNP results less than or equal to 100 pg/ml are representat mathew of normal values in patients without CHF. BNP results greater than 100 pg/ml are considered abnormal and suggestive of CHF. Higher BNP concentrati ons in the first 72 hours after Acute Coronary Syndrome are associated with an increased risk of , myocardial infarction and CHF. Ordering Provider: NELDA GREENFIELD IN S Report Released Date/Time: Oct 20, 2024 09:44 AM Reporting Lab: [place] [phone] Performing Lab: [address] CBC/PLT LEUKOCYTES [#/VOLUME] IN BLOOD BY AUTOMATED COUNT 5.2 10*3/uL 5.0 - 10.0 10/20 Specimen Type: BLOOD No comment entered. Ordering Provider: NELDA GREENFIELD IN S Report Released Date/Time: Oct 20, 2024 09:44 AM Reporting Lab: [place] [phone] Performing Lab: [address] CBC/PLT ERYTHROCYT ES [#/VOLUME] IN BLOOD BY AUTOMATED COUNT 5.64 10*6/uL 4.6 - 6.2 10/20 Specimen Type: BLOOD No comment entered. Ordering Provider: NELDA GREENFIELD IN S Report Released Date/Time: Oct 20, 2024 09:44 AM Reporting Lab: [place] [phone] Performing Lab: [place] [phone] [place] [address] CBC/PLT HEMOGLOBIN [MASS/VOLU ME] IN BLOOD 14.8 g/dL 14.0 - 18.0 10/20 Specimen Type: BLOOD No comment entered. Ordering Provider: NELDA GREENFIELD IN S Report Released Date/Time: Oct 20, 2024 09:44 AM Reporting Lab: [place] [phone] Performing Lab: [place] [phone] [place] [address] CBC/PLT HEMATOCRIT [VOLUME FRACTION] OF BLOOD BY AUTOMATED COUNT 46.5 42.0 - 52.0 10/20 Specimen Type: BLOOD No comment entered. Ordering Provider: NELDA GREENFIELD IN S Report Released Date/Time: Oct 20, 2024 09:44 AM Reporting Lab: [place] [id number] Performing Lab: [address] CBC/PLT MCV [ENTITIC VOLUME] BY AUTOMATED COUNT 82.4 fL 80.0 - 94.0 10/20 Specimen Type: BLOOD No comment entered. Ordering Provider: NELDA GREENFIELD IN S Report Released Date/Time: Oct 20, 2024 09:44 AM Reporting Lab: [place] [id number] Performing Lab: [address] CBC/PLT MCH [ENTITIC MASS] BY AUTOMATED COUNT 26.2 pg 27.0 - 31.0 10/20 L Specimen Type: BLOOD No comment entered. Ordering Provider: NELDA GREENFIELD IN S Report Released Date/Time: Oct 20, 2024 09:44 AM Reporting Lab: [place] [id number] Performing Lab: [address] CBC/PLT MCHC [MASS/VOLU ME] BY AUTOMATED COUNT 31.8 g/dL 32.0 - 36.0 10/20 L Specimen Type: BLOOD No comment entered. Ordering Provider: NELDA GREENFIELD IN S Report Released Date/Time: Oct 20, 2024 09:44 AM Reporting Lab: [place] [id number] Performing Lab: [address] CBC/PLT PLATELETS [#/VOLUME] IN BLOOD 211 10*3/uL 150 - 450 10/20 Specimen Type: BLOOD No comment entered. Ordering Provider: NELDA GREENFIELD IN S Report Released Date/Time: Oct 20, 2024 09:44 AM Reporting Lab: [place] [phone] Performing Lab: [address] CBC/PLT PLATELET MEAN VOLUME [ENTITIC VOLUME] IN BLOOD 12.1 fL 9.0 - 13.1 10/20 Specimen Type: BLOOD No comment entered. Ordering Provider: NELDA GREENFIELD IN S Report Released Date/Time: Oct 20, 2024 09:44 AM Reporting Lab: [place] [phone] Performing Lab: [place] [phone] CBC/PLT ERYTHROCYT E DISTRIBUTI ON WIDTH [ENTITIC VOLUME] BY AUTOMATED COUNT 13.1 11.0 - 16.0 10/20 Specimen Type: BLOOD No comment entered. Ordering Provider: NELDA GREENFIELD IN S Report Released Date/Time: Oct 20, 2024 09:44 AM Reporting Lab: [place] [phone] Performing Lab: [place] [phone] CBC/PLT NUCLEATED ERYTHROCYT ES/100 ERYTHROCYT ES IN BLOOD 0.0 0.0 - 0.0 10/20 Specimen Type: BLOOD No comment entered. Ordering Provider: NELDA GREENFIELD IN S Report Released Date/Time: Oct 20, 2024 09:44 AM Reporting Lab: [place] [phone] Performing Lab: [place] [phone] [place] [address] LIPID PROFILE CHOLESTERO L [MASS/VOLU ME] IN SERUM OR PLASMA 163 mg/dL 0 - 199 10/20 Specimen Type: PLASMA Comment: Estimated Glomerular Filtration Rate (eGFR) calculated using the 2020 Chronic Kidney Disease-Epi demiology (CKD-EPI) Collaborati on creatinine equation; units of measure are mL/min/1.73 m2. Results are only valid for adults (>=18 years) whose serum creatinine is in a steady state. eGFR calculation s are not valid for patients with acute kidney injury and for patients on dialysis. Creatinine- based estimates of kidney function may also be inaccurate in patients with reduced creatinine generation due to decreased muscle mass (e.g., malnutritio n, severe hypoalbumin emia, sarcopenia, chronic neuromuscul ar disease, amputations , severe heart failure or liver disease) and in patients with increased creatinine generation due to increased muscle mass (e.g., muscle builders, anabolic steroids) or increased dietary intake. As drug clearance is proportiona l to total GFR and not GFR indexed to body surface area (BSA), in individuals with a BSA substantial ly different than 1.73 m2, drug dosing should be based on the reported eGFR value de-indexed from BSA by multiplying by the individual' s BSA and dividing by 1.73. CKD is diagnosed based on abnormaliti es of kidney structure or function, present for >3 months, with implication s for health and disease. CKD is classified and staged based on cause, eGFR and albuminuria (quantified as urine albumin to creatinine ratio). An eGFR >60 mL/min/1.73 m2 in the absence of increased urine albumin excretion or structural abnormaliti es does not represent CKD. eGFR CKD Interpretat ion (mL/min/1.7 3 m2) stage >=90 G1 Normal 60-89 G2 Mild decrease 45-59 G3A Mild to moderate decrease 30-44 G3B Moderate to severe decrease 15-29 G4 Severe decrease <15 G5 Kidney failure Ordering Provider: NELDA GREENFIELD S Report Released Date/Time: Oct 20, 2024 09:44 AM Reporting Lab: [facility] [address] [phone] Performing Lab: [facility] [address] [phone] [facility] LIPID PROFILE TRIGLYCERI DE [MASS/VOLU ME] IN SERUM OR PLASMA 166 mg/dL 0 - 149 10/20 H Specimen Type: PLASMA Comment: Estimated Glomerular Filtration Rate (eGFR) calculated using the 2020 Chronic Kidney Disease-Epi demiology (CKD-EPI) Collaborati on creatinine equation; units of measure are mL/min/1.73 m2. Results are only valid for adults (>=18 years) whose serum creatinine is in a steady state. eGFR calculation s are not valid for patients with acute kidney injury and for patients on dialysis. Creatinine- based estimates of kidney function may also be inaccurate in patients with reduced creatinine generation due to decreased muscle mass (e.g., malnutritio n, severe hypoalbumin emia, sarcopenia, chronic neuromuscul ar disease, amputations , severe heart failure or liver disease) and in patients with increased creatinine generation due to increased muscle mass (e.g., muscle builders, anabolic steroids) or increased dietary intake. As drug clearance is proportiona l to total GFR and not GFR indexed to body surface area (BSA), in individuals with a BSA substantial ly different than 1.73 m2, drug dosing should be based on the reported eGFR value de-indexed from BSA by multiplying by the individual' s BSA and dividing by 1.73. CKD is diagnosed based on abnormaliti es of kidney structure or function, present for >3 months, with implication s for health and disease. CKD is classified and staged based on cause, eGFR and albuminuria (quantified as urine albumin to creatinine ratio). An eGFR >60 mL/min/1.73 m2 in the absence of increased urine albumin excretion or structural abnormaliti es does not represent CKD. eGFR CKD Interpretat ion (mL/min/1.7 3 m2) stage >=90 G1 Normal 60-89 G2 Mild decrease 45-59 G3A Mild to moderate decrease 30-44 G3B Moderate to severe decrease 15-29 G4 Severe decrease <15 G5 Kidney failure Ordering Provider: NELDA GREENFIELD S Report Released Date/Time: Oct 20, 2024 09:44 AM Reporting Lab: [facility] [address] [address] Performing Lab: [facility] [address] [address] [facility] LIPID PROFILE CHOLESTERO L IN HDL [MASS/VOLU ME] IN SERUM OR PLASMA 28 mg/dL 40 - 69 10/20 L Specimen Type: PLASMA Comment: Estimated Glomerular Filtration Rate (eGFR) calculated using the 2020 Chronic Kidney Disease-Epi demiology (CKD-EPI) Collaborati on creatinine equation; units of measure are mL/min/1.73 m2. Results are only valid for adults (>=18 years) whose serum creatinine is in a steady state. eGFR calculation s are not valid for patients with acute kidney injury and for patients on dialysis. Creatinine- based estimates of kidney function may also be inaccurate in patients with reduced creatinine generation due to decreased muscle mass (e.g., malnutritio n, severe hypoalbumin emia, sarcopenia, chronic neuromuscul ar disease, amputations , severe heart failure or liver disease) and in patients with increased creatinine generation due to increased muscle mass (e.g., muscle builders, anabolic steroids) or increased dietary intake. As drug clearance is proportiona l to total GFR and not GFR indexed to body surface area (BSA), in individuals with a BSA substantial ly different than 1.73 m2, drug dosing should be based on the reported eGFR value de-indexed from BSA by multiplying by the individual' s BSA and dividing by 1.73. CKD is diagnosed based on abnormaliti es of kidney structure or function, present for >3 months, with implication s for health and disease. CKD is classified and staged based on cause, eGFR and albuminuria (quantified as urine albumin to creatinine ratio). An eGFR >60 mL/min/1.73 m2 in the absence of increased urine albumin excretion or structural abnormaliti es does not represent CKD. eGFR CKD Interpretat ion (mL/min/1.7 3 m2) stage >=90 G1 Normal 60-89 G2 Mild decrease 45-59 G3A Mild to moderate decrease 30-44 G3B Moderate to severe decrease 15-29 G4 Severe decrease <15 G5 Kidney failure Ordering Provider: NELDA GREENFIELD S Report Released Date/Time: Oct 20, 2024 09:44 AM Reporting Lab: [facility] [address] [facility] [address] Performing Lab: [facility] [address] [facility] [address] [facility] LIPID PROFILE CHOLESTERO L IN LDL [MASS/VOLU ME] IN SERUM OR PLASMA BY DIRECT ASSAY 122 mg/dL 0 - 100 10/20 H Specimen Type: PLASMA Comment: Estimated Glomerular Filtration Rate (eGFR) calculated using the 2020 Chronic Kidney Disease-Epi demiology (CKD-EPI) Collaborati on creatinine equation; units of measure are mL/min/1.73 m2. Results are only valid for adults (>=18 years) whose serum creatinine is in a steady state. eGFR calculation s are not valid for patients with acute kidney injury and for patients on dialysis. Creatinine- based estimates of kidney function may also be inaccurate in patients with reduced creatinine generation due to decreased muscle mass (e.g., malnutritio n, severe hypoalbumin emia, sarcopenia, chronic neuromuscul ar disease, amputations , severe heart failure or liver disease) and in patients with increased creatinine generation due to increased muscle mass (e.g., muscle builders, anabolic steroids) or increased dietary intake. As drug clearance is proportiona l to total GFR and not GFR indexed to body surface area (BSA), in individuals with a BSA substantial ly different than 1.73 m2, drug dosing should be based on the reported eGFR value de-indexed from BSA by multiplying by the individual' s BSA and dividing by 1.73. CKD is diagnosed based on abnormaliti es of kidney structure or function, present for >3 months, with implication s for health and disease. CKD is classified and staged based on cause, eGFR and albuminuria (quantified as urine albumin to creatinine ratio). An eGFR >60 mL/min/1.73 m2 in the absence of increased urine albumin excretion or structural abnormaliti es does not represent CKD. eGFR CKD Interpretat ion (mL/min/1.7 3 m2) stage >=90 G1 Normal 60-89 G2 Mild decrease 45-59 G3A Mild to moderate decrease 30-44 G3B Moderate to severe decrease 15-29 G4 Severe decrease <15 G5 Kidney failure Ordering Provider: NELDA GREENFIELD IN S Report Released Date/Time: Oct 20, 2024 09:44 AM Reporting Lab: [facility] [address] [facility] [phone] Performing Lab: [facility] [address] [address] [facility] PANEL 5 CREATININE [MASS/VOLU ME] IN SERUM OR PLASMA 0.89 mg/dL 0.72 - 1.25 10/20 Specimen Type: PLASMA Comment: Estimated Glomerular Filtration Rate (eGFR) calculated using the 2020 Chronic Kidney Disease-Epi demiology (CKD-EPI) Collaborati on creatinine equation; units of measure are mL/min/1.73 m2. Results are only valid for adults (>=18 years) whose serum creatinine is in a steady state. eGFR calculation s are not valid for patients with acute kidney injury and for patients on dialysis. Creatinine- based estimates of kidney function may also be inaccurate in patients with reduced creatinine generation due to decreased muscle mass (e.g., malnutritio n, severe hypoalbumin emia, sarcopenia, chronic neuromuscul ar disease, amputations , severe heart failure or liver disease) and in patients with increased creatinine generation due to increased muscle mass (e.g., muscle builders, anabolic steroids) or increased dietary intake. As drug clearance is proportiona l to total GFR and not GFR indexed to body surface area (BSA), in individuals with a BSA substantial ly different than 1.73 m2, drug dosing should be based on the reported eGFR value de-indexed from BSA by multiplying by the individual' s BSA and dividing by 1.73. CKD is diagnosed based on abnormaliti es of kidney structure or function, present for >3 months, with implication s for health and disease. CKD is classified and staged based on cause, eGFR and albuminuria (quantified as urine albumin to creatinine ratio). An eGFR >60 mL/min/1.73 m2 in the absence of increased urine albumin excretion or structural abnormaliti es does not represent CKD. eGFR CKD Interpretat ion (mL/min/1.7 3 m2) stage >=90 G1 Normal 60-89 G2 Mild decrease 45-59 G3A Mild to moderate decrease 30-44 G3B Moderate to severe decrease 15-29 G4 Severe decrease <15 G5 Kidney failure Ordering Provider: NELDA GREENFIELD S Report Released Date/Time: Oct 20, 2024 09:44 AM Reporting Lab: [facility] [address] [facility] [address] Performing Lab: [facility] [address] [address] [facility] PANEL 5 UREA NITROGEN [MASS/VOLU ME] IN SERUM OR PLASMA 20 mg/dL 10/20 Specimen Type: PLASMA Comment: Estimated Glomerular Filtration Rate (eGFR) calculated using the 2020 Chronic Kidney Disease-Epi demiology (CKD-EPI) Collaborati on creatinine equation; units of measure are mL/min/1.73 m2. Results are only valid for adults (>=18 years) whose serum creatinine is in a steady state. eGFR calculation s are not valid for patients with acute kidney injury and for patients on dialysis. Creatinine- based estimates of kidney function may also be inaccurate in patients with reduced creatinine generation due to decreased muscle mass (e.g., malnutritio n, severe hypoalbumin emia, sarcopenia, chronic neuromuscul ar disease, amputations , severe heart failure or liver disease) and in patients with increased creatinine generation due to increased muscle mass (e.g., muscle builders, anabolic steroids) or increased dietary intake. As drug clearance is proportiona l to total GFR and not GFR indexed to body surface area (BSA), in individuals with a BSA substantial ly different than 1.73 m2, drug dosing should be based on the reported eGFR value de-indexed from BSA by multiplying by the individual' s BSA and dividing by 1.73. CKD is diagnosed based on abnormaliti es of kidney structure or function, present for >3 months, with implication s for health and disease. CKD is classified and staged based on cause, eGFR and albuminuria (quantified as urine albumin to creatinine ratio). An eGFR >60 mL/min/1.73 m2 in the absence of increased urine albumin excretion or structural abnormaliti es does not represent CKD. eGFR CKD Interpretat ion (mL/min/1.7 3 m2) stage >=90 G1 Normal 60-89 G2 Mild decrease 45-59 G3A Mild to moderate decrease 30-44 G3B Moderate to severe decrease 15-29 G4 Severe decrease <15 G5 Kidney failure Ordering Provider: NELDA GREENFIELD S Report Released Date/Time: Oct 20, 2024 09:44 AM Reporting Lab: [facility] [address] [address] Performing Lab: [facility] [address] [address] [facility] PANEL 5 GLUCOSE [MASS/VOLU ME] IN SERUM OR PLASMA 137 mg/dL 74 - 100 10/20 H Specimen Type: PLASMA Comment: Estimated Glomerular Filtration Rate (eGFR) calculated using the 2020 Chronic Kidney Disease-Epi demiology (CKD-EPI) Collaborati on creatinine equation; units of measure are mL/min/1.73 m2. Results are only valid for adults (>=18 years) whose serum creatinine is in a steady state. eGFR calculation s are not valid for patients with acute kidney injury and for patients on dialysis. Creatinine- based estimates of kidney function may also be inaccurate in patients with reduced creatinine generation due to decreased muscle mass (e.g., malnutritio n, severe hypoalbumin emia, sarcopenia, chronic neuromuscul ar disease, amputations , severe heart failure or liver disease) and in patients with increased creatinine generation due to increased muscle mass (e.g., muscle builders, anabolic steroids) or increased dietary intake. As drug clearance is proportiona l to total GFR and not GFR indexed to body surface area (BSA), in individuals with a BSA substantial ly different than 1.73 m2, drug dosing should be based on the reported eGFR value de-indexed from BSA by multiplying by the individual' s BSA and dividing by 1.73. CKD is diagnosed based on abnormaliti es of kidney structure or function, present for >3 months, with implication s for health and disease. CKD is classified and staged based on cause, eGFR and albuminuria (quantified as urine albumin to creatinine ratio). An eGFR >60 mL/min/1.73 m2 in the absence of increased urine albumin excretion or structural abnormaliti es does not represent CKD. eGFR CKD Interpretat ion (mL/min/1.7 3 m2) stage >=90 G1 Normal 60-89 G2 Mild decrease 45-59 G3A Mild to moderate decrease 30-44 G3B Moderate to severe decrease 15-29 G4 Severe decrease <15 G5 Kidney failure Ordering Provider: NELDA GREENFIELD IN S Report Released Date/Time: Oct 20, 2024 09:44 AM Reporting Lab: [facility] [address] [address] Performing Lab: [facility] [address] [address] [facility] PANEL 5 SODIUM [MOLES/VOL UME] IN SERUM OR PLASMA 142 mmol/L 136 - 145 10/20 Specimen Type: PLASMA Comment: Estimated Glomerular Filtration Rate (eGFR) calculated using the 2020 Chronic Kidney Disease-Epi demiology (CKD-EPI) Collaborati on creatinine equation; units of measure are mL/min/1.73 m2. Results are only valid for adults (>=18 years) whose serum creatinine is in a steady state. eGFR calculation s are not valid for patients with acute kidney injury and for patients on dialysis. Creatinine- based estimates of kidney function may also be inaccurate in patients with reduced creatinine generation due to decreased muscle mass (e.g., malnutritio n, severe hypoalbumin emia, sarcopenia, chronic neuromuscul ar disease, amputations , severe heart failure or liver disease) and in patients with increased creatinine generation due to increased muscle mass (e.g., muscle builders, anabolic steroids) or increased dietary intake. As drug clearance is proportiona l to total GFR and not GFR indexed to body surface area (BSA), in individuals with a BSA substantial ly different than 1.73 m2, drug dosing should be based on the reported eGFR value de-indexed from BSA by multiplying by the individual' s BSA and dividing by 1.73. CKD is diagnosed based on abnormaliti es of kidney structure or function, present for >3 months, with implication s for health and disease. CKD is classified and staged based on cause, eGFR and albuminuria (quantified as urine albumin to creatinine ratio). An eGFR >60 mL/min/1.73 m2 in the absence of increased urine albumin excretion or structural abnormaliti es does not represent CKD. eGFR CKD Interpretat ion (mL/min/1.7 3 m2) stage >=90 G1 Normal 60-89 G2 Mild decrease 45-59 G3A Mild to moderate decrease 30-44 G3B Moderate to severe decrease 15-29 G4 Severe decrease <15 G5 Kidney failure Ordering Provider: NELDA GREENFIELD IN S Report Released Date/Time: Oct 20, 2024 09:44 AM Reporting Lab: [facility] [address] [phone] Performing Lab: [facility] [address] [address] [facility] 5 POTASSIUM [MOLES/VOL UME] IN SERUM OR PLASMA 4.0 mmol/L 3.5 - 5.1 10/20 Specimen Type: PLASMA Comment: Estimated Glomerular Filtration Rate (eGFR) calculated using the 2020 Chronic Kidney Disease-Epi demiology (CKD-EPI) Collaborati on creatinine equation; units of measure are mL/min/1.73 m2. Results are only valid for adults (>=18 years) whose serum creatinine is in a steady state. eGFR calculation s are not valid for patients with acute kidney injury and for patients on dialysis. Creatinine- based estimates of kidney function may also be inaccurate in patients with reduced creatinine generation due to decreased muscle mass (e.g., malnutritio n, severe hypoalbumin emia, sarcopenia, chronic neuromuscul ar disease, amputations , severe heart failure or liver disease) and in patients with increased creatinine generation due to increased muscle mass (e.g., muscle builders, anabolic steroids) or increased dietary intake. As drug clearance is proportiona l to total GFR and not GFR indexed to body surface area (BSA), in individuals with a BSA substantial ly different than 1.73 m2, drug dosing should be based on the reported eGFR value de-indexed from BSA by multiplying by the individual' s BSA and dividing by 1.73. CKD is diagnosed based on abnormaliti es of kidney structure or function, present for >3 months, with implication s for health and disease. CKD is classified and staged based on cause, eGFR and albuminuria (quantified as urine albumin to creatinine ratio). An eGFR >60 mL/min/1.73 m2 in the absence of increased urine albumin excretion or structural abnormaliti es does not represent CKD. eGFR CKD Interpretat ion (mL/min/1.7 3 m2) stage >=90 G1 Normal 60-89 G2 Mild decrease 45-59 G3A Mild to moderate decrease 30-44 G3B Moderate to severe decrease 15-29 G4 Severe decrease <15 G5 Kidney failure Ordering Provider: NELDA GREENFIELD S Report Released Date/Time: Oct 20, 2024 09:44 AM Reporting Lab: [facility] [address] [address] Performing Lab: [facility] [address] [address] [facility] PANEL 5 CHLORIDE [MOLES/VOL UME] IN SERUM OR PLASMA 102 mmol/L 98 - 107 10/20 Specimen Type: PLASMA Comment: Estimated Glomerular Filtration Rate (eGFR) calculated using the 2020 Chronic Kidney Disease-Epi demiology (CKD-EPI) Collaborati on creatinine equation; units of measure are mL/min/1.73 m2. Results are only valid for adults (>=18 years) whose serum creatinine is in a steady state. eGFR calculation s are not valid for patients with acute kidney injury and for patients on dialysis. Creatinine- based estimates of kidney function may also be inaccurate in patients with reduced creatinine generation due to decreased muscle mass (e.g., malnutritio n, severe hypoalbumin emia, sarcopenia, chronic neuromuscul ar disease, amputations , severe heart failure or liver disease) and in patients with increased creatinine generation due to increased muscle mass (e.g., muscle builders, anabolic steroids) or increased dietary intake. As drug clearance is proportiona l to total GFR and not GFR indexed to body surface area (BSA), in individuals with a BSA substantial ly different than 1.73 m2, drug dosing should be based on the reported eGFR value de-indexed from BSA by multiplying by the individual' s BSA and dividing by 1.73. CKD is diagnosed based on abnormaliti es of kidney structure or function, present for >3 months, with implication s for health and disease. CKD is classified and staged based on cause, eGFR and albuminuria (quantified as urine albumin to creatinine ratio). An eGFR >60 mL/min/1.73 m2 in the absence of increased urine albumin excretion or structural abnormaliti es does not represent CKD. eGFR CKD Interpretat ion (mL/min/1.7 3 m2) stage >=90 G1 Normal 60-89 G2 Mild decrease 45-59 G3A Mild to moderate decrease 30-44 G3B Moderate to severe decrease 15-29 G4 Severe decrease <15 G5 Kidney failure Ordering Provider: NELDA GREENFIELD IN S Report Released Date/Time: Oct 20, 2024 09:44 AM Reporting Lab: [facility] [address] [address] Performing Lab: [facility] [address] [address] [facility] PANEL 5 CARBON DIOXIDE, TOTAL [MOLES/VOL UME] IN SERUM OR PLASMA 30 mmol/L 22 - 29 10/20 H Specimen Type: PLASMA Comment: Estimated Glomerular Filtration Rate (eGFR) calculated using the 2020 Chronic Kidney Disease-Epi demiology (CKD-EPI) Collaborati on creatinine equation; units of measure are mL/min/1.73 m2. Results are only valid for adults (>=18 years) whose serum creatinine is in a steady state. eGFR calculation s are not valid for patients with acute kidney injury and for patients on dialysis. Creatinine- based estimates of kidney function may also be inaccurate in patients with reduced creatinine generation due to decreased muscle mass (e.g., malnutritio n, severe hypoalbumin emia, sarcopenia, chronic neuromuscul ar disease, amputations , severe heart failure or liver disease) and in patients with increased creatinine generation due to increased muscle mass (e.g., muscle builders, anabolic steroids) or increased dietary intake. As drug clearance is proportiona l to total GFR and not GFR indexed to body surface area (BSA), in individuals with a BSA substantial ly different than 1.73 m2, drug dosing should be based on the reported eGFR value de-indexed from BSA by multiplying by the individual' s BSA and dividing by 1.73. CKD is diagnosed based on abnormaliti es of kidney structure or function, present for >3 months, with implication s for health and disease. CKD is classified and staged based on cause, eGFR and albuminuria (quantified as urine albumin to creatinine ratio). An eGFR >60 mL/min/1.73 m2 in the absence of increased urine albumin excretion or structural abnormaliti es does not represent CKD. eGFR CKD Interpretat ion (mL/min/1.7 3 m2) stage >=90 G1 Normal 60-89 G2 Mild decrease 45-59 G3A Mild to moderate decrease 30-44 G3B Moderate to severe decrease 15-29 G4 Severe decrease <15 G5 Kidney failure Ordering Provider: NELDA GREENFIELD IN S Report Released Date/Time: Oct 20, 2024 09:44 AM Reporting Lab: [facility] [address] [address] Performing Lab: [facility] [address] [address] [facility] PANEL 5 CALCIUM [MASS/VOLU ME] IN SERUM OR PLASMA 9.7 mg/dL 8.4 - 10.2 10/20 Specimen Type: PLASMA Comment: Estimated Glomerular Filtration Rate (eGFR) calculated using the 2020 Chronic Kidney Disease-Epi demiology (CKD-EPI) Collaborati on creatinine equation; units of measure are mL/min/1.73 m2. Results are only valid for adults (>=18 years) whose serum creatinine is in a steady state. eGFR calculation s are not valid for patients with acute kidney injury and for patients on dialysis. Creatinine- based estimates of kidney function may also be inaccurate in patients with reduced creatinine generation due to decreased muscle mass (e.g., malnutritio n, severe hypoalbumin emia, sarcopenia, chronic neuromuscul ar disease, amputations , severe heart failure or liver disease) and in patients with increased creatinine generation due to increased muscle mass (e.g., muscle builders, anabolic steroids) or increased dietary intake. As drug clearance is proportiona l to total GFR and not GFR indexed to body surface area (BSA), in individuals with a BSA substantial ly different than 1.73 m2, drug dosing should be based on the reported eGFR value de-indexed from BSA by multiplying by the individual' s BSA and dividing by 1.73. CKD is diagnosed based on abnormaliti es of kidney structure or function, present for >3 months, with implication s for health and disease. CKD is classified and staged based on cause, eGFR and albuminuria (quantified as urine albumin to creatinine ratio). An eGFR >60 mL/min/1.73 m2 in the absence of increased urine albumin excretion or structural abnormaliti es does not represent CKD. eGFR CKD Interpretat ion (mL/min/1.7 3 m2) stage >=90 G1 Normal 60-89 G2 Mild decrease 45-59 G3A Mild to moderate decrease 30-44 G3B Moderate to severe decrease 15-29 G4 Severe decrease <15 G5 Kidney failure Ordering Provider: NELDA GREENFIELD Report Released Date/Time: Oct 20, 2024 09:44 AM Reporting Lab: [facility] [address] [address] Performing Lab: [facility] [address] [address] [facility] PANEL 5 PROTEIN [MASS/VOLU ME] IN SERUM OR PLASMA 7.3 g/dL 6.4 - 8.3 10/20 Specimen Type: PLASMA Comment: Estimated Glomerular Filtration Rate (eGFR) calculated using the 2020 Chronic Kidney Disease-Epi demiology (CKD-EPI) Collaborati on creatinine equation; units of measure are mL/min/1.73 m2. Results are only valid for adults (>=18 years) whose serum creatinine is in a steady state. eGFR calculation s are not valid for patients with acute kidney injury and for patients on dialysis. Creatinine- based estimates of kidney function may also be inaccurate in patients with reduced creatinine generation due to decreased muscle mass (e.g., malnutritio n, severe hypoalbumin emia, sarcopenia, chronic neuromuscul ar disease, amputations , severe heart failure or liver disease) and in patients with increased creatinine generation due to increased muscle mass (e.g., muscle builders, anabolic steroids) or increased dietary intake. As drug clearance is proportiona l to total GFR and not GFR indexed to body surface area (BSA), in individuals with a BSA substantial ly different than 1.73 m2, drug dosing should be based on the reported eGFR value de-indexed from BSA by multiplying by the individual' s BSA and dividing by 1.73. CKD is diagnosed based on abnormaliti es of kidney structure or function, present for >3 months, with implication s for health and disease. CKD is classified and staged based on cause, eGFR and albuminuria (quantified as urine albumin to creatinine ratio). An eGFR >60 mL/min/1.73 m2 in the absence of increased urine albumin excretion or structural abnormaliti es does not represent CKD. eGFR CKD Interpretat ion (mL/min/1.7 3 m2) stage >=90 G1 Normal 60-89 G2 Mild decrease 45-59 G3A Mild to moderate decrease 30-44 G3B Moderate to severe decrease 15-29 G4 Severe decrease <15 G5 Kidney failure Ordering Provider: NELDA GREENFIELD IN S Report Released Date/Time: Oct 20, 2024 09:44 AM Reporting Lab: [facility] [address] [address] Performing Lab: [facility] [address] [address] [facility] PANEL 5 ALBUMIN [MASS/VOLU ME] IN SERUM OR PLASMA 4.3 g/dL 3.5 - 5.2 10/20 Specimen Type: PLASMA Comment: Estimated Glomerular Filtration Rate (eGFR) calculated using the 2020 Chronic Kidney Disease-Epi demiology (CKD-EPI) Collaborati on creatinine equation; units of measure are mL/min/1.73 m2. Results are only valid for adults (>=18 years) whose serum creatinine is in a steady state. eGFR calculation s are not valid for patients with acute kidney injury and for patients on dialysis. Creatinine- based estimates of kidney function may also be inaccurate in patients with reduced creatinine generation due to decreased muscle mass (e.g., malnutritio n, severe hypoalbumin emia, sarcopenia, chronic neuromuscul ar disease, amputations , severe heart failure or liver disease) and in patients with increased creatinine generation due to increased muscle mass (e.g., muscle builders, anabolic steroids) or increased dietary intake. As drug clearance is proportiona l to total GFR and not GFR indexed to body surface area (BSA), in individuals with a BSA substantial ly different than 1.73 m2, drug dosing should be based on the reported eGFR value de-indexed from BSA by multiplying by the individual' s BSA and dividing by 1.73. CKD is diagnosed based on abnormaliti es of kidney structure or function, present for >3 months, with implication s for health and disease. CKD is classified and staged based on cause, eGFR and albuminuria (quantified as urine albumin to creatinine ratio). An eGFR >60 mL/min/1.73 m2 in the absence of increased urine albumin excretion or structural abnormaliti es does not represent CKD. eGFR CKD Interpretat ion (mL/min/1.7 3 m2) stage >=90 G1 Normal 60-89 G2 Mild decrease 45-59 G3A Mild to moderate decrease 30-44 G3B Moderate to severe decrease 15-29 G4 Severe decrease <15 G5 Kidney failure Ordering Provider: NELDA GREENFIELD IN S Report Released Date/Time: Oct 20, 2024 09:44 AM Reporting Lab: [facility] [address] [phone] Performing Lab: [facility] [address] [phone] [facility] PANEL 5 BILIRUBIN. TOTAL [MASS/VOLU ME] IN SERUM OR PLASMA 0.5 mg/dL 0.2 - 1.2 10/20 Specimen Type: PLASMA Comment: Estimated Glomerular Filtration Rate (eGFR) calculated using the 2020 Chronic Kidney Disease-Epi demiology (CKD-EPI) Collaborati on creatinine equation; units of measure are mL/min/1.73 m2. Results are only valid for adults (>=18 years) whose serum creatinine is in a steady state. eGFR calculation s are not valid for patients with acute kidney injury and for patients on dialysis. Creatinine- based estimates of kidney function may also be inaccurate in patients with reduced creatinine generation due to decreased muscle mass (e.g., malnutritio n, severe hypoalbumin emia, sarcopenia, chronic neuromuscul ar disease, amputations , severe heart failure or liver disease) and in patients with increased creatinine generation due to increased muscle mass (e.g., muscle builders, anabolic steroids) or increased dietary intake. As drug clearance is proportiona l to total GFR and not GFR indexed to body surface area (BSA), in individuals with a BSA substantial ly different than 1.73 m2, drug dosing should be based on the reported eGFR value de-indexed from BSA by multiplying by the individual' s BSA and dividing by 1.73. CKD is diagnosed based on abnormaliti es of kidney structure or function, present for >3 months, with implication s for health and disease. CKD is classified and staged based on cause, eGFR and albuminuria (quantified as urine albumin to creatinine ratio). An eGFR >60 mL/min/1.73 m2 in the absence of increased urine albumin excretion or structural abnormaliti es does not represent CKD. eGFR CKD Interpretat ion (mL/min/1.7 3 m2) stage >=90 G1 Normal 60-89 G2 Mild decrease 45-59 G3A Mild to moderate decrease 30-44 G3B Moderate to severe decrease 15-29 G4 Severe decrease <15 G5 Kidney failure Ordering Provider: NELDA GREENFIELD S Report Released Date/Time: Oct 20, 2024 09:44 AM Reporting Lab: [facility] [address] [facility] [phone] Performing Lab: [facility] T[facility] [address] [facility] [phone] [facility] PANEL 5 ASPARTATE AMINOTRANS FERASE [ENZYMATIC ACTIVITY/V OLUME] IN SERUM OR PLASMA 25 U/L 5 - 34 10/20 Specimen Type: PLASMA Comment: Estimated Glomerular Filtration Rate (eGFR) calculated using the 2020 Chronic Kidney Disease-Epi demiology (CKD-EPI) Collaborati on creatinine equation; units of measure are mL/min/1.73 m2. Results are only valid for adults (>=18 years) whose serum creatinine is in a steady state. eGFR calculation s are not valid for patients with acute kidney injury and for patients on dialysis. Creatinine- based estimates of kidney function may also be inaccurate in patients with reduced creatinine generation due to decreased muscle mass (e.g., malnutritio n, severe hypoalbumin emia, sarcopenia, chronic neuromuscul ar disease, amputations , severe heart failure or liver disease) and in patients with increased creatinine generation due to increased muscle mass (e.g., muscle builders, anabolic steroids) or increased dietary intake. As drug clearance is proportiona l to total GFR and not GFR indexed to body surface area (BSA), in individuals with a BSA substantial ly different than 1.73 m2, drug dosing should be based on the reported eGFR value de-indexed from BSA by multiplying by the individual' s BSA and dividing by 1.73. CKD is diagnosed based on abnormaliti es of kidney structure or function, present for >3 months, with implication s for health and disease. CKD is classified and staged based on cause, eGFR and albuminuria (quantified as urine albumin to creatinine ratio). An eGFR >60 mL/min/1.73 m2 in the absence of increased urine albumin excretion or structural abnormaliti es does not represent CKD. eGFR CKD Interpretat ion (mL/min/1.7 3 m2) stage >=90 G1 Normal 60-89 G2 Mild decrease 45-59 G3A Mild to moderate decrease 30-44 G3B Moderate to severe decrease 15-29 G4 Severe decrease <15 G5 Kidney failure Ordering Provider: NELDA GREENFIELD IN S Report Released Date/Time: Oct 20, 2024 09:44 AM Reporting Lab: [facility] [address] [facility] [phone] Performing Lab: [facility] TATE [facility] [address] [facility] [phone] [facility] PANEL 5 ALANINE AMINOTRANS FERASE [ENZYMATIC ACTIVITY/V OLUME] IN SERUM OR PLASMA 52 U/L 0 - 55 10/20 Specimen Type: PLASMA Comment: Estimated Glomerular Filtration Rate (eGFR) calculated using the 2020 Chronic Kidney Disease-Epi demiology (CKD-EPI) Collaborati on creatinine equation; units of measure are mL/min/1.73 m2. Results are only valid for adults (>=18 years) whose serum creatinine is in a steady state. eGFR calculation s are not valid for patients with acute kidney injury and for patients on dialysis. Creatinine- based estimates of kidney function may also be inaccurate in patients with reduced creatinine generation due to decreased muscle mass (e.g., malnutritio n, severe hypoalbumin emia, sarcopenia, chronic neuromuscul ar disease, amputations , severe heart failure or liver disease) and in patients with increased creatinine generation due to increased muscle mass (e.g., muscle builders, anabolic steroids) or increased dietary intake. As drug clearance is proportiona l to total GFR and not GFR indexed to body surface area (BSA), in individuals with a BSA substantial ly different than 1.73 m2, drug dosing should be based on the reported eGFR value de-indexed from BSA by multiplying by the individual' s BSA and dividing by 1.73. CKD is diagnosed based on abnormaliti es of kidney structure or function, present for >3 months, with implication s for health and disease. CKD is classified and staged based on cause, eGFR and albuminuria (quantified as urine albumin to creatinine ratio). An eGFR >60 mL/min/1.73 m2 in the absence of increased urine albumin excretion or structural abnormaliti es does not represent CKD. eGFR CKD Interpretat ion (mL/min/1.7 3 m2) stage >=90 G1 Normal 60-89 G2 Mild decrease 45-59 G3A Mild to moderate decrease 30-44 G3B Moderate to severe decrease 15-29 G4 Severe decrease <15 G5 Kidney failure Ordering Provider: NELDA GREENFIELD IN S Report Released Date/Time: Oct 20, 2024 09:44 AM Reporting Lab: DM[facility] TATE [facility] [address] [facility] [phone] Performing Lab: SARAH TATE [facility] [address] [facility] [address] [facility] PANEL 5 ANION GAP 3 IN SERUM OR PLASMA 10 meq/L 3 - 19 10/20 Specimen Type: PLASMA Comment: Estimated Glomerular Filtration Rate (eGFR) calculated using the 2020 Chronic Kidney Disease-Epi demiology (CKD-EPI) Collaborati on creatinine equation; units of measure are mL/min/1.73 m2. Results are only valid for adults (>=18 years) whose serum creatinine is in a steady state. eGFR calculation s are not valid for patients with acute kidney injury and for patients on dialysis. Creatinine- based estimates of kidney function may also be inaccurate in patients with reduced creatinine generation due to decreased muscle mass (e.g., malnutritio n, severe hypoalbumin emia, sarcopenia, chronic neuromuscul ar disease, amputations , severe heart failure or liver disease) and in patients with increased creatinine generation due to increased muscle mass (e.g., muscle builders, anabolic steroids) or increased dietary intake. As drug clearance is proportiona l to total GFR and not GFR indexed to body surface area (BSA), in individuals with a BSA substantial ly different than 1.73 m2, drug dosing should be based on the reported eGFR value de-indexed from BSA by multiplying by the individual' s BSA and dividing by 1.73. CKD is diagnosed based on abnormaliti es of kidney structure or function, present for >3 months, with implication s for health and disease. CKD is classified and staged based on cause, eGFR and albuminuria (quantified as urine albumin to creatinine ratio). An eGFR >60 mL/min/1.73 m2 in the absence of increased urine albumin excretion or structural abnormaliti es does not represent CKD. eGFR CKD Interpretat ion (mL/min/1.7 3 m2) stage >=90 G1 Normal 60-89 G2 Mild decrease 45-59 G3A Mild to moderate decrease 30-44 G3B Moderate to severe decrease 15-29 G4 Severe decrease <15 G5 Kidney failure Ordering Provider: NLEDA GREENFIELD S Report Released Date/Time: Oct 20, 2024 09:44 AM Reporting Lab: [facility] [address] [phone] Performing Lab: [facility] [address] [address] [facility] PANEL 5 ALKALINE PHOSPHATAS E [ENZYMATIC ACTIVITY/V OLUME] IN SERUM OR PLASMA 71 U/L 40 - 150 10/20 Specimen Type: PLASMA Comment: Estimated Glomerular Filtration Rate (eGFR) calculated using the 2020 Chronic Kidney Disease-Epi demiology (CKD-EPI) Collaborati on creatinine equation; units of measure are mL/min/1.73 m2. Results are only valid for adults (>=18 years) whose serum creatinine is in a steady state. eGFR calculation s are not valid for patients with acute kidney injury and for patients on dialysis. Creatinine- based estimates of kidney function may also be inaccurate in patients with reduced creatinine generation due to decreased muscle mass (e.g., malnutritio n, severe hypoalbumin emia, sarcopenia, chronic neuromuscul ar disease, amputations , severe heart failure or liver disease) and in patients with increased creatinine generation due to increased muscle mass (e.g., muscle builders, anabolic steroids) or increased dietary intake. As drug clearance is proportiona l to total GFR and not GFR indexed to body surface area (BSA), in individuals with a BSA substantial ly different than 1.73 m2, drug dosing should be based on the reported eGFR value de-indexed from BSA by multiplying by the individual' s BSA and dividing by 1.73. CKD is diagnosed based on abnormaliti es of kidney structure or function, present for >3 months, with implication s for health and disease. CKD is classified and staged based on cause, eGFR and albuminuria (quantified as urine albumin to creatinine ratio). An eGFR >60 mL/min/1.73 m2 in the absence of increased urine albumin excretion or structural abnormaliti es does not represent CKD. eGFR CKD Interpretat ion (mL/min/1.7 3 m2) stage >=90 G1 Normal 60-89 G2 Mild decrease 45-59 G3A Mild to moderate decrease 30-44 G3B Moderate to severe decrease 15-29 G4 Severe decrease <15 G5 Kidney failure Ordering Provider: NELDA GREENFIELD IN S Report Released Date/Time: Oct 20, 2024 09:44 AM Reporting Lab: [facility] [address] [address] Performing Lab: [facility] [address] [address] [facility] 5 GLOMERULAR FILTRATION RATE/1.73 SQ M.PREDICTE D [VOLUME RATE/AREA] IN SERUM, PLASMA OR BLOOD BY CREATININE -BASED FORMULA (CKD-EPI 2020) >90 10/20 Specimen Type: PLASMA Comment: Estimated Glomerular Filtration Rate (eGFR) calculated using the 2020 Chronic Kidney Disease-Epi demiology (CKD-EPI) Collaborati on creatinine equation; units of measure are mL/min/1.73 m2. Results are only valid for adults (>=18 years) whose serum creatinine is in a steady state. eGFR calculation s are not valid for patients with acute kidney injury and for patients on dialysis. Creatinine- based estimates of kidney function may also be inaccurate in patients with reduced creatinine generation due to decreased muscle mass (e.g., malnutritio n, severe hypoalbumin emia, sarcopenia, chronic neuromuscul ar disease, amputations , severe heart failure or liver disease) and in patients with increased creatinine generation due to increased muscle mass (e.g., muscle builders, anabolic steroids) or increased dietary intake. As drug clearance is proportiona l to total GFR and not GFR indexed to body surface area (BSA), in individuals with a BSA substantial ly different than 1.73 m2, drug dosing should be based on the reported eGFR value de-indexed from BSA by multiplying by the individual' s BSA and dividing by 1.73. CKD is diagnosed based on abnormaliti es of kidney structure or function, present for >3 months, with implication s for health and disease. CKD is classified and staged based on cause, eGFR and albuminuria (quantified as urine albumin to creatinine ratio). An eGFR >60 mL/min/1.73 m2 in the absence of increased urine albumin excretion or structural abnormaliti es does not represent CKD. eGFR CKD Interpretat ion (mL/min/1.7 3 m2) stage >=90 G1 Normal 60-89 G2 Mild decrease 45-59 G3A Mild to moderate decrease 30-44 G3B Moderate to severe decrease 15-29 G4 Severe decrease <15 G5 Kidney failure Ordering Provider: NELDA GREENFIELD IN S Report Released Date/Time: Oct 20, 2024 09:44 AM Reporting Lab: [place] [phone] Performing Lab: [place] [phone] PSA PROSTATE SPECIFIC AG [MASS/VOLU ME] IN SERUM OR PLASMA 1.710 ng/mL 0 - 3.999 10/20 Specimen Type: SERUM No comment entered. Ordering Provider: NELDA GREENFIELD IN S Report Released Date/Time: Oct 20, 2024 09:44 AM Reporting Lab: [place] [phone] Performing Lab: [place] [phone] TSH THYROTROPI N [UNITS/VOL UME] IN SERUM OR PLASMA 2.2190 m[IU]/mL 0.3500 - 4.9400 10/20 Specimen Type: PLASMA Comment: Estimated Glomerular Filtration Rate (eGFR) calculated using the 2020 Chronic Kidney Disease-Epi demiology (CKD-EPI) Collaborati on creatinine equation; units of measure are mL/min/1.73 m2. Results are only valid for adults (>=18 years) whose serum creatinine is in a steady state. eGFR calculation s are not valid for patients with acute kidney injury and for patients on dialysis. Creatinine- based estimates of kidney function may also be inaccurate in patients with reduced creatinine generation due to decreased muscle mass (e.g., malnutritio n, severe hypoalbumin emia, sarcopenia, chronic neuromuscul ar disease, amputations , severe heart failure or liver disease) and in patients with increased creatinine generation due to increased muscle mass (e.g., muscle builders, anabolic steroids) or increased dietary intake. As drug clearance is proportiona l to total GFR and not GFR indexed to body surface area (BSA), in individuals with a BSA substantial ly different than 1.73 m2, drug dosing should be based on the reported eGFR value de-indexed from BSA by multiplying by the individual' s BSA and dividing by 1.73. CKD is diagnosed based on abnormaliti es of kidney structure or function, present for >3 months, with implication s for health and disease. CKD is classified and staged based on cause, eGFR and albuminuria (quantified as urine albumin to creatinine ratio). An eGFR >60 mL/min/1.73 m2 in the absence of increased urine albumin excretion or structural abnormaliti es does not represent CKD. eGFR CKD Interpretat ion (mL/min/1.7 3 m2) stage >=90 G1 Normal 60-89 G2 Mild decrease 45-59 G3A Mild to moderate decrease 30-44 G3B Moderate to severe decrease 15-29 G4 Severe decrease <15 G5 Kidney failure Ordering Provider: NELDA GREENFIELD Report Released Date/Time: Oct 20, 2024 09:44 AM Reporting Lab: [facility] [address] [phone] Performing Lab: SARAH [address] [address] [facility] AUTOMATE D DIFF LYMPHOCYTE S/100 LEUKOCYTES IN BLOOD BY AUTOMATED COUNT 33.4 24.0 - 44.0 02/28 Specimen Type: BLOOD No comment entered. Ordering Provider: KG HENRY Report Released Date/Time: February 18, 2024 03:44 PM Reporting Lab: [place] [address] [address] Performing Lab: [address] [address] [facility] AUTOMATE D DIFF MONOCYTES/ 100 LEUKOCYTES IN BLOOD BY AUTOMATED COUNT 7.6 0.1 - 6.0 02/28 H Specimen Type: BLOOD No comment entered. Ordering Provider: KG HENRY Report Released Date/Time: February 18, 2024 03:44 PM Reporting Lab: [address] [address] Performing Lab: [address] [address] [facility] AUTOMATE D DIFF GRANULOCYT ES/100 LEUKOCYTES IN BLOOD BY AUTOMATED COUNT 55.6 42.0 - 75.0 02/28 Specimen Type: BLOOD No comment entered. Ordering Provider: KG HENRY Report Released Date/Time: February 18, 2024 03:44 PM Reporting Lab: [place] [phone] Performing Lab: [place] [phone] [facility] AUTOMATE D DIFF LYMPHOCYTE S [#/VOLUME] IN BLOOD BY AUTOMATED COUNT 1.37 10*3/uL 1.20 - 3.40 02/28 Specimen Type: BLOOD No comment entered. Ordering Provider: KG HENRY Report Released Date/Time: February 18, 2024 03:44 PM Reporting Lab: [address] [address] Performing Lab: [address] [phone] [facility] AUTOMATE D DIFF MONOCYTES [#/VOLUME] IN BLOOD BY AUTOMATED COUNT 0.31 10*3/uL 0.00 - 0.60 02/28 Specimen Type: BLOOD No comment entered. Ordering Provider: KG HENRY Report Released Date/Time: February 18, 2024 03:44 PM Reporting Lab: [address] [address] Performing Lab: [place] [phone] [facility] AUTOMATE D DIFF GRANULOCYT ES [#/VOLUME] IN BLOOD BY AUTOMATED COUNT 2.28 10*3/uL 1.40 - 6.50 02/28 Specimen Type: BLOOD No comment entered. Ordering Provider: KG HENRY Report Released Date/Time: February 18, 2024 03:44 PM Reporting Lab: [place] [id number] Performing Lab: [address] AUTOMATE D DIFF BASOPHILS/ 100 LEUKOCYTES IN BLOOD BY AUTOMATED COUNT 0.7 0.0 - 3.0 02/28 Specimen Type: BLOOD No comment entered. Ordering Provider: KG HENRY Report Released Date/Time: February 18, 2024 03:44 PM Reporting Lab: [place] [id number] Performing Lab: [address] AUTOMATE D DIFF BASOPHILS [#/VOLUME] IN BLOOD BY AUTOMATED COUNT 0.03 10*3/uL 0.00 - 0.20 02/28 Specimen Type: BLOOD No comment entered. Ordering Provider: KG HENRY Report Released Date/Time: February 18, 2024 03:44 PM Reporting Lab: [place] [id number] Performing Lab: [address] AUTOMATE D DIFF EOSINOPHIL S/100 LEUKOCYTES IN BLOOD BY AUTOMATED COUNT 2.2 0.0 - 10.0 02/28 Specimen Type: BLOOD No comment entered. Ordering Provider: KG HENRY Report Released Date/Time: February 18, 2024 03:44 PM Reporting Lab: [place] [id number] Performing Lab: [address] AUTOMATE D DIFF EOSINOPHIL S [#/VOLUME] IN BLOOD BY AUTOMATED COUNT 0.09 10*3/uL 0.00 - 0.70 02/28 Specimen Type: BLOOD No comment entered. Ordering Provider: KG HENRY Report Released Date/Time: February 18, 2024 03:44 PM Reporting Lab: [place] [phone] Performing Lab: [place] [phone] AUTOMATE D DIFF IMMATURE GRANULOCYT ES/100 LEUKOCYTES IN BLOOD 0.5 0.0 - 0.5 02/28 Specimen Type: BLOOD No comment entered. Ordering Provider: KG HENRY Report Released Date/Time: February 18, 2024 03:44 PM Reporting Lab: [place] [phone] Performing Lab: [address] AUTOMATE D DIFF IMMATURE GRANULOCYT ES [#/VOLUME] IN BLOOD 0.02 10*3/uL 0.00 - 0.06 02/28 Specimen Type: BLOOD No comment entered. Ordering Provider: KG HENRY Report Released Date/Time: February 18, 2024 03:44 PM Reporting Lab: [place] [phone] Performing Lab: [place] [phone] CBC/PLT LEUKOCYTES [#/VOLUME] IN BLOOD BY AUTOMATED COUNT 4.1 10*3/uL 5.0 - 10.0 02/28 L Specimen Type: BLOOD No comment entered. Ordering Provider: KG HENRY Report Released Date/Time: February 18, 2024 03:44 PM Reporting Lab: [place] [phone] Performing Lab: [place] [phone] [place] [address] CBC/PLT ERYTHROCYT ES [#/VOLUME] IN BLOOD BY AUTOMATED COUNT 5.77 10*6/uL 4.6 - 6.2 02/28 Specimen Type: BLOOD No comment entered. Ordering Provider: KG HENRY Report Released Date/Time: February 18, 2024 03:44 PM Reporting Lab: [place] [phone] Performing Lab: [address] [phone] [facility] CBC/PLT HEMOGLOBIN [MASS/VOLU ME] IN BLOOD 15.6 g/dL 14.0 - 18.0 02/28 Specimen Type: BLOOD No comment entered. Ordering Provider: KG HENRY Report Released Date/Time: February 18, 2024 03:44 PM Reporting Lab: [place] [phone] Performing Lab: [place] [phone] [place] [address] CBC/PLT HEMATOCRIT [VOLUME FRACTION] OF BLOOD BY AUTOMATED COUNT 48.2 42.0 - 52.0 02/28 Specimen Type: BLOOD No comment entered. Ordering Provider: KG HENRY Report Released Date/Time: February 18, 2024 03:44 PM Reporting Lab: [place] [phone] Performing Lab: [place] [phone] [place] [address] CBC/PLT MCV [ENTITIC VOLUME] BY AUTOMATED COUNT 83.5 fL 80.0 - 94.0 02/28 Specimen Type: BLOOD No comment entered. Ordering Provider: KG HENRY Report Released Date/Time: February 18, 2024 03:44 PM Reporting Lab: [place] [phone] Performing Lab: [place] [phone] [place] [address] CBC/PLT MCH [ENTITIC MASS] BY AUTOMATED COUNT 27.0 pg 27.0 - 31.0 02/28 Specimen Type: BLOOD No comment entered. Ordering Provider: KG HENRY Report Released Date/Time: February 18, 2024 03:44 PM Reporting Lab: [place] [phone] Performing Lab: [place] [phone] [facility] CBC/PLT MCHC [MASS/VOLU ME] BY AUTOMATED COUNT 32.4 g/dL 32.0 - 36.0 02/28 Specimen Type: BLOOD No comment entered. Ordering Provider: KG HENRY Report Released Date/Time: February 18, 2024 03:44 PM Reporting Lab: [place] [phone] Performing Lab: [address] CBC/PLT PLATELETS [#/VOLUME] IN BLOOD 124 10*3/uL 150 - 450 02/28 L Specimen Type: BLOOD No comment entered. Ordering Provider: KG HENRY Report Released Date/Time: February 18, 2024 03:44 PM Reporting Lab: [place] [address] Performing Lab: [address] CBC/PLT PLATELET MEAN VOLUME [ENTITIC VOLUME] IN BLOOD 12.1 fL 9.0 - 13.1 02/28 Specimen Type: BLOOD No comment entered. Ordering Provider: KG HENRY Report Released Date/Time: February 18, 2024 03:44 PM Reporting Lab: [place] [phone] Performing Lab: [address] CBC/PLT ERYTHROCYT E DISTRIBUTI ON WIDTH [ENTITIC VOLUME] BY AUTOMATED COUNT 13.1 11.0 - 16.0 02/28 Specimen Type: BLOOD No comment entered. Ordering Provider: KG HENRY Report Released Date/Time: February 18, 2024 03:44 PM Reporting Lab: [place] [phone] Performing Lab: [address] CBC/PLT NUCLEATED ERYTHROCYT ES/100 ERYTHROCYT ES IN BLOOD 0.0 0.0 - 0.0 02/28 Specimen Type: BLOOD No comment entered. Ordering Provider: KG HENRY Report Released Date/Time: February 18, 2024 03:44 PM Reporting Lab: [place] [phone] Performing Lab: [facility] T[facility] [address] [facility] [address] [facility] Vital Signs Combined list of inpatient and outpatient Vital Signs from Department of Defense and Veterans Affairs, ranging from 12 months to all on record, depending upon the facility. Vital Sign Value Date Comments Source SYSTOLIC BLOOD PRESSURE 108 11/30/2024 09:29:56 [facility] DIASTOLIC BLOOD PRESSURE 70 11/30/2024 09:29:56 [facility] PULSE OXIMETRY 97 11/30/2024 09:29:56 [facility] WEIGHT 245.2 11/30/2024 09:29:56 [place] [facility] [facility] BMI 32 kg/m2 11/30/2024 09:29:56 [place] [facility] PAIN 0 11/30/2024 09:29:56 [place] [facility] TEMPERATURE 98 11/30/2024 09:29:56 ABEBE NGTON [facility] PULSE 91 11/30/2024 09:29:56 [place] [facility] RESPIRATION 12 11/30/2024 09:29:56 ABEBE NGTON [facility] SYSTOLIC BLOOD PRESSURE 122 10/20/2024 08:53:21 [facility] DIA[facility]LO[facility] PRESSURE 74 10/20/2024 08:53:21 [place] [facility] PULSE OXIMETRY 94 10/20/2024 08:53:21 [facility] WEIGHT 247.8 10/20/2024 08:53:21 [place] [facility] BMI 32 kg/m2 10/20/2024 08:53:21 [place] [facility] PAIN 1 10/20/2024 08:53:21 [place] [facility] HEIGHT 74 10/20/2024 08:53:21 [place] [facility] TEMPERATURE 97.8 10/20/2024 08:53:21 ABEBE NGTON [facility] PULSE 73 10/20/2024 08:53:21 [place] [facility] RESPIRATION 18 10/20/2024 08:53:21 [facility] SYSTOLIC BLOOD PRESSURE 135 04/18/2024 08:11:00 [facility] DIASTOLIC BLOOD PRESSURE 78 04/18/2024 08:11:00 [facility] PULSE OXIMETRY 97 04/18/2024 08:11:00 Isaiah [facility] PAIN 0 04/18/2024 08:11:00 [facility] TEMPERATURE 98.4 04/18/2024 08:11:00 [facility] PULSE 56 04/18/2024 08:11:00 [facility] SYSTOLIC BLOOD PRESSURE 126 02/16/2024 07:59:57 [facility] DIASTOLIC BLOOD PRESSURE 79 02/16/2024 07:59:57 [facility] PULSE OXIMETRY 95 02/16/2024 07:59:57 M [facility] WEIGHT 242 02/16/2024 07:59:57 [facility] BMI 31 kg/m2 02/16/2024 07:59:57 [facility] PAIN 2 02/16/2024 07:59:57 [facility] HEIGHT 74 02/16/2024 07:59:57 [facility] TEMPERATURE 97.8 02/16/2024 07:59:57 [facility] PULSE 57 02/16/2024 07:59:57 [facility] RESPIRATION 18 02/16/2024 07:59:57 [facility] Encounters Combined list of: 1) Encounters from Department of Veterans Affairs facilities going backup to the last 18 months, not all [place] inpatient encounters are included; 2) Encounters from the Department of Defense facilities going backup to 280 months. Location Location Details Encounter Type Encounter Number Reason For Visit Attending Provider ADM Date DC Date Status Disposition Source [facility] O/P EST LOW 20-29 MIN [id number] Diagnos is: ICD-10- CM B35.1 Tinea unguium SHU LESTER S 08/02 [place] [facility] O/P EST LOW 20 MIN [id number] Diagnos is: ICD-10- CM B35.1 Tinea unguium SHU LESTER 11/30 [place] [facility] Outpatient Encounter [id number] 02/06 [place] [facility] Outpatient Encounter [id number] 02/07 [place] [facility] OFFICE O/P EST MOD 30 MIN [id number] Diagnos is: ICD-10- CM M47.896 Other spondyl osis, lumbar region FERNANDO HENRY D 02/15 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, miloi EMILIANO Christian 03/20 [facility] OFFICE O/P EST MOD 30 MIN [id number] Diagnos is: ICD-10- CM D18.01 Hemangi kassi of skin and subcuta neous tissue LORETO SOTOMAYOR ISTOPHER C 03/24 [place] Outpatient Encounter [id number] MARCY KATZ 04/14 [place] [facility] Outpatient Encounter [id number] ME MINDA CUNNINGHAM 04/14 [place] [facility] HC PRO PHONE CALL 11-20 MIN [id number] Diagnos is: ICD-10- CM R68.89 Other general symptom s and signs RYLAN LEWIS 04/14 [place] [facility] REMOVAL OF NAIL PLATE [id number] Diagnos is: ICD-10- CM L60.1 Onychol SHU Shah S 04/18 [place] [facility] Outpatient Encounter [id number] SHU LESTER S 04/18 [place] Outpatient Encounter [id number] 04/18 [place] [facility] OFFICE O/P EST LOW 20 MIN [id number] Diagnos is: ICD-10- CM S90.221 A Contusi on of right lesser toe(s) w damage to nail, inSHU Prince S 04/18 [place] [facility] QNHP OL DIG ASSMT&MGMT - [id number] [id number] Diagnos is: ICD-10- CM L03.90 Celluli tis, unspeci fied PRICILA HASKINS Y W 04/23 [place] Outpatient Encounter [id number] Diagnos is: ICD-10- CM D69.6 Thrombo cytopen ia, unspeci fied VIET GONZALEZ A 04/24 [place] Outpatient Encounter [id number] MARCY KATZ 04/28 [place] [facility] OFFICE O/P EST MOD 30 MIN [id number] Diagnos is: ICD-10- CM S92.424 D Nondisp fx of dist phalanx of r great toe, 7thD INESSA,B ENJAMIN M 05/02 [place] [facility] OFFICE O/P EST LOW 20 MIN [id number] Diagnos is: ICD-10- CM S92.424 D Nondisp fx of dist phalanx of r great toe, 7thD KATZMARCY 05/16 [place] HC PRO PHONE CALL 5-10 MIN [id number] Diagnos is: ICD-10- CM 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 Outpatient Encounter [id number] JOHANNA BRITO 08/16 [place] [facility] Outpatient Encounter [id number] DINORAH WEN 10/10 [place] [facility] Outpatient Encounter [id number] DINORAH WEN 10/10 [place] [facility] Outpatient Encounter [id number] 10/10 [place] Outpatient Encounter [id number] 10/10 [place] [facility] Outpatient Encounter [id number] 10/14 [place] OFFICE O/P EST LOW 20 MIN [id number] Diagnos is: ICD-10- CM I48.91 Unspeci fied atrial fibrill JOSEPH Bansal W 10/14 [place] [facility] Outpatient Encounter [id number] 10/14 [place] Outpatient Encounter [id number] 10/20 [place] [facility] Outpatient Encounter [id number] 10/20 [place] [facility] OFFICE O/P EST MOD 30 MIN [id number] Diagnos is: ICD-10- CM I48.0 Paroxys mal atrial fibrill ation GINEL SARAN S 10/20 [facility] NQHP OL DIG ASSMT&MGMT 08-23 [id number] Diagnos is: ICD-10- CM Z51.81 Encount er for therape utic drug level monitor Alas C 10/24 [place] [facility] Outpatient Encounter [id number] DINORAH WEN L 10/24 [place] [facility] Outpatient Encounter [id number] 10/27 [place] [facility] MTMS BY PHARM LAWN MAINTENANCE WORKER 15 MIN [id number] Diagnos is: ICD-10- CM Z51.81 Encount er for therape utic drug level monitor ing FRANCISCA KIMBLE RA 10/27 [place] [facility] Outpatient Encounter [id number] 10/30 [place] [facility] Outpatient Encounter [id number] 10/30 [place] [facility] Outpatient Encounter [id number] 11/01 [place] [facility] Outpatient Encounter [id number] BETTYECANDYMARBELLA Colon 11/07 [place] [facility] Outpatient Encounter [id number] 11/21 [place] [facility] OFF/OP CNSLTJ NEW/EST MOD 40 [id number] Diagnos is: ICD-10- CM I48.0 Paroxys mal atrial fibrill fatou JEWELL DENNEY 11/30 [place] [facility] Outpatient Encounter [id number] 11/30 [place] [facility] Outpatient Encounter [id number] 12/05 [place] [facility] Outpatient Encounter [id number] 12/06 [place] [facility] Outpatient Encounter [id number] 12/12 [place] [facility] Outpatient Encounter [id number] 12/26 [place] Outpatient Encounter [id number] 12/28 [place] [facility] Outpatient Encounter [id number] 12/28 [place] [facility] Outpatient Encounter [id number] 12/28 [place] [facility] Social History Combined list of available smoking, tobacco, and other social history from Department of Defense and Veterans Affairs facilities. Social History Type Response Date Comment [facility] e Tobacco smoking status NHIS VA-TOBACCO USER EVERY DAY 02/16/2024 [facility] History of tobacco use VA-TOBACCO USE WI 30 MIN OF WAKEUP 02/16/2024 [facility] History of tobacco use VA-TOBACCO USER EVERY DAY 02/24/2023 [facility] History of tobacco use VA-TOBACCO USER EVERY DAY 11/17/2021 [facility] History of tobacco use VA-TOBACCO USER EVERY DAY 03/28/2021 [facility] [place] [facility] History of tobacco use VA-TOBACCO USE MED NO 04/08/2020 ISAK MEDINA [facility] History of tobacco use VA-TOBACCO USER SOME DAYS 04/11/2018 [place] [facility] History of tobacco use TOBACCO OFFERED MEDS PT REFUS (NON-PROV) 10/11/2017 ISAK [facility] [facility] History of tobacco use CURRENT TOBACCO USER 10/23/2015 [facility] History of tobacco use CURRENT TOBACCO USER 04/26/2014 [facility] History of tobacco use CURRENT TOBACCO USER 05/05/2013 [facility] History of tobacco use CURRENT TOBACCO USER 03/04/2012 [facility] History of tobacco use CURRENT TOBACCO USER 03/16/2011 [facility] History of tobacco use CURRENT TOBACCO USER 02/13/2010 [facility] CS History of tobacco use CURRENT TOBACCO USER 08/08/2008 [facility] Plan of Care List of future care activities from Department of Veterans Affairs facilities. Additional future care activities may be listed in the Assessment and Plan section. Date/Time Care Activity Care Activity Detail Facili ty 01/11/2025 AMBULATORY - NONE AMBULATORY - NONE [facility]
--- OUTSIDE RECORDS SUMMARY | 2025-01-11 20:46 | XMS_ITS | Encounter Summary ---
Author Name [facility] [place] [facility] [place] [address] [place] [id number] Care Team Providers Care Supervisor Major [employer]liance [employer] Name Role Phone CHANEL BRITTANY Primary Care [...] Policy Pérez AETNA VISION AETNA VISIO N [facility] Jan 02, 2022 [id number] [phone] [place] PATIENT AETNA VISION VISION AETNA VISIO N [facility] R Jan 02, 2022 [id number] [place]LL[place] PATIENT [employer] TRICA RE DODA Oct 04, 2017 DODA [id number] [place]LL[place] PATIENT (WNR) NONBI LLABL E Sep 03, 2010 NONBILL ABLE [id number] [place]LL[place] PATIENT [facility] 2024 TRICA RE SELEC T Oct 04, 2024 [facility] [id number] [place] ILL[place] PATIENT [facility] 2024 JACKY Carbone WNR Oct 04, 2024 [facility] [id number] [place]LL[place] PATIENT Selected Encounter This section includes the information on record at [place] for the Encounter. Date/Time Encounter Type Encounter Description Reason Pro vider Source Oct 27, 2024 11:13 AM Outpatient Encounter COMMUNITY CARE CONSULT IHE Encounter Template Text not used by [place] Plan of Treatment: Future Appointments (+ 6 months) and Future Tests (+/- 45 days) The Plan of Treatment section includes future care activities for the patient from all [place] treatmentfacilities. This section includes future appointments and future orders which are active, pending or scheduled. Future Appointments This section includes appointments that were scheduled to occur 6 months from the date of the Encounter, up to a maximum of 20 appointments. The data comes from all [place] treatment facilities. Appointment Date/Time Appointment Type Appointme nt Facility Name Oct 30, 2024 08:00 AM AMBULATORY - NONE [facility] Nov 30, 2024 09:30 AM [facility]ICINE [facility] Dec 12, 2024 01:00 PM AMBULATORY - NONE [facility] Jan 11, 2025 10:00 AM AMBULATORY - NONE [facility] February 07, 2025 10:00 AM AMBULATORY - NONE [facility] Active, Pending, and Scheduled Orders This section includes a listing of several types of active, pending, and scheduled orders, including clinic medications orders, diagnostic test orders, procedure orders and consult orders; where the start date of the order is 45 days before the date of the Encounter or 45 days after the date of theEncounter. The data comes from all [place] treatment facilities. Test Date/Time Test Type Test Details Facility Name Dec 07, 2024 09:28 AM Consult Order COMMUNITY CARE-DS ROUTINE OPT Cons Complaint Investigations Officer's Choice [facility] Lab Results: +/- 30 days of the encounter This section includes the Chemistry and Hematology Lab Results on record with [place] for the patient. Radiology Reports and Pathology Reports are provided separately, in subsequent sections. Lab Results This section contains the Chemistry/Hematology Results that were resulted 30 days before or 30 daysafter the date of the Encounter. Date/Time Source Result Type Result - Unit Interpretation Reference Range Specimen Type Comment Nov 09, 2024 12:00 [facility] OCCULT [facility]LO[facility] FIT X1 SCREEN FECES Specimen Typ e: FECES No comment entered. Ordering Provider: ULICES GREENFIELD Report Released Date/Time: Oct 20, 2024 09:44 AM Reporting Lab: [address] [address] Performing Lab: [address] [address] OCCULT BLOOD (FIT) #1 OF 1 Negative Nega tive Oct 20, 2024 09:47 AM [facility] B12 VITAMIN PLASMA Specimen Type: PLASM [...] Oct 20, 2024 09:44 AM Reporting Lab: [address] [address] Performing Lab: [address] [address] B12 VITAMIN 402 pg/mL 213-816 Oct 20, 2024 09:47 AM [facility] PSA S SKYLA Specimen Type: SERUM No comment entered. Ordering Provider: ULICES GREENFIELD Report Released Date/Time: Oct 20, 2024 09:44 AM Reporting Lab: [address] [address] Performing Lab: [address] [address] PSA 1.710 ng/mL 0-3.999 Oct 20, 2024 09:47 AM [facility] BNP ([employer] PLASMA Specimen Type: PLASMA Comment: BNP results less than or equal to 100 pg/ml are shipping services sales representative of normal values in patients without CHF. BNP results greater than 100 pg/ml are considered abnormal and suggestive of CHF. Higher BNP concentrations in the first 72 hours after Acute Coronary Syndrome are associated with an increased risk of , myocardial infarction and CHF. Ordering Provider: ULICES GREENFIELD Report Released Date/Time: Oct 20, 2024 09:44 AM Reporting Lab: [address] [address] Performing Lab: [address] [address] BNP (RAMÍREZ) 273 pg/mL H 0-100 Oct 20, 2024 09:47 AM [facility] CBC/PLT BLOOD Specimen Type: BLOOD No comment entered. Ordering Provider: ULICES GREENFIELD Report Released Date/Time: Oct 20, 2024 09:44 AM Reporting Lab: [facility] [address] [facility] [address] Performing Lab: [address] [address] WBC 5.2 10*3/uL 5.0-10.0 RBC 5.64 10*6/uL 4.6-6.2 HGB 14.8 g/dL 14.0-18.0 HCT 46.5 42.0-52.0 MCV 82.4 fL 80.0-94.0 MCH 26.2 pg L 27.0-31.0 MCHC 31.8 g/dL L 32.0-36.0 PLT 211 10*3/uL 150-450 MPV 12.1 fL 9.0-13.1 RDW 13.1 11.0-16.0 NRBC 0.0 0.0-0.0 Oct 20, 2024 09:47 AM [facility] LIPID PROFILE PLASMA Specimen Type: PLASM [...] Oct 20, 2024 09:44 AM Reporting Lab: [address] [address] Performing Lab: [address] [address] CHOLESTEROL 163 mg/dL 0-199 TRIGLYCERIDE 166 mg/dL H 0-149 HDL CHOLESTEROL 28 mg/dL L 40-69 DIRECT LDL CHOL. 122 mg/dL H 0-100 Oct 20, 2024 09:47 AM [facility] PANEL 5 PLASMA Specimen Type: PLASM [...] Oct 20, 2024 09:44 AM Reporting Lab: [address] [address] Performing Lab: [address] [address] CREATININE 0.89 mg/dL 0.72-1.25 UREA NITROGEN 20 [...] (CKD-EPI) >90 Oct 20, 2024 09:47 AM [facility] PLASMA Specimen Type: PLASM A Comment: Estimated [...] Oct 20, 2024 09:44 AM Reporting Lab: [address] [address] Performing Lab: [address] [address] TSH 2.2190 m[IU]/mL 0.3500-4.9400 Encounter Notes: All associated encounter notes This section contains the clinical notes associated to the Encounter. Date/Time Encounter Note(s) Provider Source Oct 27, 2024 11:13 AM NONVA NOTE: LOCAL TITLE: [facility] CARE-CARE COORDINATION PLAN NOTE STANDARD TITLE: NONVA NOTE DATE OF NOTE: OCT 27, 2024@11:13 ENTRY DATE: OCT 27, 2024@11:14:33 AUTHOR: LENIN COLLINS EXP COSIGNER: URGENCY: STATUS: COMPLETED Community Care Consult: Consult No: [id number] [facility] Referral #: Chief Complaint: #RCT# Patient with history of AF, previously cardioverted in 2016. Not currently on DOAC per med list. Patient notes recent return to AF, reqeusting cardiology consult via [facility] with Dr. Chan Rose at [facility], if allowable. Patient Admitted? No Level of Care Coordination Moderate Care Coordination was determined from: Chart Review Facility Community Care Office Contact Care Coordination Point of Contact: Lenin Phone Number: [phone] Services: Basic Care Coordination Services Monitoring and coordination of Rehab/PT Services Direct communication to referring provider Care management, if appropriate Plan: Chart reviewed. Community care consult processed and sent to [facility] for scheduling and assigning of auth. Will review records once available Time Spent: 7 mins /emani/ LENIN COLLINS MSN, RN [facility] RN Cloth Weigher Signed: 10/27/2024 11:19 LENIN COLLINS [facility]
--- OUTSIDE RECORDS SUMMARY | 2025-01-11 20:47 | XMS_ITS | Encounter Summary ---
Author Name [facility] [place] Organization [facility] [place] Address [address] [place] [address] Care Team Providers Care Coffee Farmer Name Role Phone CHANEL BRITTANY Primary Care [...] Pérez AETNA VISION AETNA VISIO N [facility] Jan 02, 2022 [id number] [employer] [phone] [place] PATIENT AETNA VISION VISION AETNA VISIO N [facility] Jan 02, 2022 [id number] [place] ILLIP PATIENT [employer] TRICA RE DODA Oct 04, 2017 DODA [id number] [place] ILL[place] PATIENT (WNR) NONBI LLABL E Sep 03, 2010 NONBILL ABLE [id number] [place] ILLIP PATIENT [facility] 2024 TRICA RE SELEC T Oct 04, 2024 [facility] [id number] [place] ILLIP PATIENT [facility] 2024 JACKY Carbone WNR Oct 04, 2024 [facility] [id number] 43 [place] ILL[place] PATIENT Selected Encounter This section includes the information on record at [place] for the Encounter. Date/Time Encounter Type Encounter Description Reason Pro vider Source Dec 06, 2024 08:20 AM Outpatient Encounter ADMIN PAT ACTIVTIES (MASNONCT) IHE Encounter Template Text not used by [place] Plan of Treatment: Future Appointments (+ 6 months) and Future Tests (+/- 45 days) The Plan of Treatment section includes future care activities for the patient from [facility] [place] [facility] This section includes future appointments and future orders which are active, pending or scheduled. Future Appointments This section includes appointments that were scheduled to occur 6 months from the date of the Encounter, up to a maximum of 20 appointments. The data comes from all [facility] [address] Appointment Date/Time Appointment Type Appointme nt Facility Name Dec 12, 2024 01:00 PM AMBULATORY - NONE [facility] Jan 11, 2025 10:00 AM AMBULATORY - NONE [facility] February 07, 2025 10:00 AM AMBULATORY - NONE [facility] Active, Pending, and Scheduled Orders This section includes a listing of several types of active, pending, and scheduled orders, including clinic medications orders, diagnostic test orders, procedure orders and consult orders; where the start date of the order is 45 days before the date of the Encounter or 45 days after the date of theEncounter. The data comes from all [facility] [address]. Test Date/Time Test Type Test Details Facility Name Dec 07, 2024 09:28 AM Consult Order COMMUNITY CARE-DS ROUTINE OPT Cons Housetrailer Servicer's Choice [facility] Dec 28, 2024 02:00 PM Consult Order COMMUNITY CARE-DS ROUTINE AUD Cons Housetrailer Servicer's Choice [facility] Lab Results: +/- 30 days of the encounter This section includes the Chemistry and Hematology Lab Results on record with [place] for the patient. Radiology Reports and Pathology Reports are provided separately, in subsequent sections. Lab Results This section contains the Chemistry/Hematology Results that were resulted 30 days before or 30 daysafter the date of the Encounter. Date/Time Source Result Type Result - Unit Interpretation Reference Range Specimen Type Comment Nov 09, 2024 12:00 AM [facility] Garay OCCULT BLOOD FIT X1 SCREEN FECES Specimen Typ e: FECES No comment entered. Ordering Provider: UMANG GREENFIELD Report Released Date/Time: Oct 20, 2024 09:44 AM Reporting Lab: [address] [address] Performing Lab: [place] [id number] OCCULT BLOOD (FIT) #1 OF 1 Negative Nega tive Encounter Notes: All associated encounter notes This section contains the clinical notes associated to the Encounter. Date/Time Encounter Note(s) Provider Source Dec 06, 2024 10:38 AM ADDENDUM: LOCAL TITLE: Addendum STANDARD TITLE: ADDENDUM DATE OF NOTE: DEC 06, 2024@10:38:16 ENTRY DATE: DEC 06, 2024@10:38:17 AUTHOR: EDI PRECIADO EXP COSIGNER: URGENCY: STATUS: COMPLETED is requesting pcp to place consult for [facility] audiology and optometry so he can see them local. /emani/ EDI PRECIADO ASSISTANT ART DIRECTOR Signed: 12/06/2024 10:39 Receipt Acknowledged By: 12/07/2024 09:29 /emani/ UMANG GREENFIELD PA-C --- Original Document --- 12/06/24 ADMINISTRATIVE COMMUNITY CARE REQUEST: pt is requesting audiology and optometry consults if possible. if you agree please place consults. thank you /emani/ FELIX FARIAS [employer] ASST Signed: 12/06/2024 08:22 Receipt Acknowledged By: 12/07/2024 09:29 /emani/ UMANG GREENFIELD PA-C 12/06/2024 09:48 /emani/ NIGEL WEN LPN 12/06/2024 08:58 /emani/ LYNNETTE PAINTING RN, BSN [facility] FUR GLOSSER 12/06/2024 ADDENDUM STATUS: COMPLETED Audiology and Optometry do not require consults Please give Mr Rome the number to self schedule these. /emani/ LYNNETTE PAINTING RN, BSN [facility] FUR GLOSSER Signed: 12/06/2024 09:00 Receipt Acknowledged By: 12/06/2024 10:38 /emani/ EDI PRECIADO ASSISTANT ART DIRECTOR EDI PRECIADO [facility] Dec 06, 2024 08:59 AM ADDENDUM: LOCAL TITLE: Addendum STANDARD TITLE: ADDENDUM DATE OF NOTE: DEC 06, 2024@08:59:02 ENTRY DATE: DEC 06, 2024@08:59:03 AUTHOR: LYNNETTE PAINTING COSIGNER: URGENCY: STATUS: COMPLETED Audiology and Optometry do not require consults Please give Mr Rome the number to self schedule these. /emani/ LYNNETTE PAINTING RN, CAN [facility] FUR GLOSSER Signed: 12/06/2024 09:00 Receipt Acknowledged By: 12/06/2024 10:38 /emani/ EDI PRECIADO ASSISTANT ART DIRECTOR --- Original Document --- 12/06/24 ADMINISTRATIVE COMMUNITY CARE REQUEST: pt is requesting audiology and optometry consults if possible. if you agree please place consults. thank you /emani/ FELIX FARIAS [employer] ASST Signed: 12/06/2024 08:22 Receipt Acknowledged By: * AWAITING SIGNATURE * UMANG GREENFIELD 12/06/2024 09:48 /emani/ NIGEL WEN LPN 12/06/2024 08:58 /emani/ LYNNETTE PAINTING RN, BSN [facility] FUR GLOSSER 12/06/2024 ADDENDUM STATUS: UNSIGNED You may not VIEW this UNSIGNED Addendum. LYNNETTE PAINTINGRenaldo [facility] Dec 06, 2024 08:54 AM ADDENDUM: LOCAL TITLE: Addendum STANDARD TITLE: ADDENDUM DATE OF NOTE: DEC 06, 2024@08:54:05 ENTRY DATE: DEC 06, 2024@08:54:06 AUTHOR: LENIN COLLINS EXP COSIGNER: URGENCY: STATUS: COMPLETED Alerting Dr. Umang Greenfield to the cardiology records scanned into [facility] /emani/ LENIN COLLINS MSN, RN CLINICAL REVIEW NURSE Signed: 12/06/2024 08:54 Receipt Acknowledged By: 12/07/2024 09:29 /es/ UMANG GREENFIELD PA-C --- Original Document --- 12/06/24 COMMUNITY CARE-CONSULT RESULT NOTE: Community Care appointment documentation was received and scanned into [facility]. Please open [facility] to review information related to your consult request. [facility]: Date: Oct Title: COMMUNITY CARE CARD .. /emani/ FELIX FARIAS [employer] ASST Signed: 12/06/2024 08:26 Receipt Acknowledged By: 12/06/2024 08:54 /emani/ LENIN COLLINS MSN, RN CLINICAL REVIEW NURSE [facility] Dec 06, 2024 08:25 AM NONVA CONSULT: LOCAL TITLE: COMMUNITY CARE-CONSULT RESULT NOTE STANDARD TITLE: NONVA CONSULT DATE OF NOTE: DEC 06, 2024@08:25 ENTRY DATE: DEC 06, 2024@08:25:51 AUTHOR: FELIX FARIAS EXP COSIGNER: URGENCY: STATUS: COMPLETED COMMUNITY CARE-CONSULT RESULT NOTE Has ADDENDA Community Care appointment documentation was received and scanned into [facility]. Please open [facility] to review information related to your consult request. [facility]: Date: Oct Title: COMMUNITY CARE CARD 10.30. /es/ FELIX FARIAS [employer] ASST Signed: 12/06/2024 08:26 Receipt Acknowledged By: 12/06/2024 08:54 /emani/ LENIN COLLINS MSN, RN CLINICAL REVIEW NURSE 12/06/2024 ADDENDUM STATUS: COMPLETED Alerting Dr. Umang Greenfield to the cardiology records scanned into [facility] /emani/ LENIN COLLINS MSN, RN CLINICAL REVIEW NURSE Signed: 12/06/2024 08:54 Receipt Acknowledged By: * AWAITING SIGNATURE * UMANG GREENFIELD HEATHER N [place]-CDD [facility] Dec 06, 2024 08:20 AM NONVA NOTE: LOCAL TITLE: ADMINISTRATIVE COMMUNITY CARE REQUEST STANDARD TITLE: NONVA NOTE DATE OF NOTE: DEC 06, 2024@08:20 ENTRY DATE: DEC 06, 2024@08:20:55 AUTHOR: FELIX FARIAS EXP COSIGNER: URGENCY: STATUS: COMPLETED ADMINISTRATIVE COMMUNITY CARE REQUEST Has ADDENDA pt is requesting audiology and optometry consults if possible. if you agree please place consults. thank you /emani/ FELIX FARIAS [employer] ASST Signed: 12/06/2024 08:22 Receipt Acknowledged By: 12/07/2024 09:29 /emani/ UMANG GREENFIELD PA-C 12/06/2024 09:48 /es/ NIGEL WEN LPN 12/06/2024 08:58 /emani/ LYNNETTE PAINTING RN, BSN [facility] FUR GLOSSER 12/06/2024 ADDENDUM STATUS: COMPLETED Audiology and Optometry do not require consults Please give Mr Rome the number to self schedule these. /emani/ LYNNETTE PAINTING RN, BSN [facility] FUR GLOSSER Signed: 12/06/2024 09:00 Receipt Acknowledged By: 12/06/2024 10:38 /emani/ EDI PRECIADO ASSISTANT ART DIRECTOR 12/06/2024 ADDENDUM STATUS: COMPLETED is requesting pcp to place consult for [facility] audiology and optometry so he can see them local. /emani/ EDI PRECIADO ASSISTANT ART DIRECTOR Signed: 12/06/2024 10:39 Receipt Acknowledged By: 12/07/2024 09:29 /emani/ FELIX DIEGO PA-C-CDD [facility]
--- OUTSIDE RECORDS SUMMARY | 2025-01-11 20:47 | XMS_ITS | Encounter Summary ---
Author Name [facility] [place] Address [address] [place] [address] Care Team Providers Care Choir Singer Name Role Phone BRITTANY BUCHANAN Primary Care [...] VISIO N [facility] Jan 02, 2022 [id number] [facility] [phone] [place]LL[place] PATIENT AETNA VISION VISION AETNA VISIO N [facility] R Jan 02, 2022 [id number] [place] ILLIP PATIENT [employer] TRICA RE DODA Oct 04, 2017 DODA [id number] [place] ILLIP PATIENT (WNR) NONBI LLABL E Sep 03, 2010 NONBILL ABLE [id number] [place]LLIP PATIENT [facility] 2024 TRICA RE SELEC T Oct 04, 2024 [facility] [id number] [place] ILLIP PATIENT [facility] 2024 JACKY Carbone WNR Oct 04, 2024 [facility] [id number] [place] ILLIP PATIENT Selected Encounter This section includes the information on record at [place] for the Encounter. Date/Time Encounter Type Encounter Description Reason Provider Source Oct 24, 2024 02:50 PM NQHP OL DIG ASSMT&MGMT 11 CLINICAL PHARMACY ICD-10-CM Z51.81 Encounter for therapeutic drug level monitoring GRETA DUDLEY IHLynnette Encounter Template Text not used by CT Assessments - Encounter Diagnoses This section includes the primary and secondary diagnoses documented for the Encounter. 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 This section includes future appointments and future orders which are active, pending or scheduled. Future Appointments This section includes appointments that were scheduled to occur 6 months from the date of the Encounter, up to a maximum of 20 appointments. The data comes from all CT treatment facilities. Appointment Date/Time Appointment Type Appointme nt Facility Name Oct 27, 2024 04:00 PM AMBULATORY - NONE [place] [facility] Oct 30, 2024 08:00 AM AMBULATORY - NONE [place] [facility] Nov 30, 2024 09:30 AM AMBULATORY - MEDICINE ABEBE BURNETT [facility] Dec 12, 2024 01:00 PM AMBULATORY - NONE [place] [facility] Jan 11, 2025 10:00 AM AMBULATORY - NONE [place] [facility] February 07, 2025 10:00 AM AMBULATORY - NONE [place] [facility] Active, Pending, and Scheduled Orders This section includes a listing of several types of active, pending, and scheduled orders, including clinic medications orders, diagnostic test orders, procedure orders and consult orders; where the start date of the order is 45 days before the date of the Encounter or 45 days after the date of theEncounter. The data comes from all CT treatment facilities. Test Date/Time Test Type Test Details Facility Name Dec 07, 2024 09:28 AM Consult Order COMMUNITY [facility]- ROUTINE OPT Cons Route Sales Driver's Choice [facility] Lab Results: +/- 30 days of the encounter This section includes the Chemistry and Hematology Lab Results on record with CT for the patient. Radiology Reports and Pathology Reports are provided separately, in subsequent sections. Lab Results This section contains the Chemistry/Hematology Results that were resulted 30 days before or 30 daysafter the date of the Encounter. Date/Time Source Result Type Result - Unit Interpretation Reference Range Specimen Type Comment Nov 09, 2024 12:00 AM [facility] N OCCULT BLOOD FIT X1 SCREEN FECES Specimen Typ e: FECES No comment entered. Ordering Provider: ULICES GREENFIELD Report Released Date/Time: Oct 20, 2024 09:44 AM Reporting Lab: [address] [address] Performing Lab: [address] [address] OCCULT BLOOD (FIT) #1 OF 1 Negative Nega tive Oct 20, 2024 09:47 AM [facility] PSA S SKYLA Specimen Type: SERUM No comment entered. Ordering Provider: ULICES GREENFIELD Report Released Date/Time: Oct 20, 2024 09:44 AM Reporting Lab: [address] [address] Performing Lab: [address] [address] PSA 1.710 ng/mL 0-3.999 Oct 20, 2024 09:47 AM [facility] B12 VITAMIN PLASMA Specimen Type: PLASM [...] Oct 20, 2024 09:44 AM Reporting Lab: [address] [address] Performing Lab: [address] [address] B12 VITAMIN 402 pg/mL 213-816 Oct 20, 2024 09:47 AM [facility] BNP (RAMÍREZ) PLASMA Specimen Type: PLASMA Comment: BNP results less than or equal to 100 pg/ml are client account representative of normal values in patients without CHF. BNP results greater than 100 pg/ml are considered abnormal and suggestive of CHF. Higher BNP concentrations in the first 72 hours after Acute Coronary Syndrome are associated with an increased risk of , myocardial infarction and CHF. Ordering Provider: ULICES GREENFIELD Report Released Date/Time: Oct 20, 2024 09:44 AM Reporting Lab: [address] [address] Performing Lab: [address] [address] BNP (RAMÍREZ) 273 pg/mL H 0-100 Oct 20, 2024 09:47 AM [facility] CBC/PLT BLOOD Specimen Type: BLOOD No comment entered. Ordering Provider: ULICES GREENFIELD Report Released Date/Time: Oct 20, 2024 09:44 AM Reporting Lab: [address] [address] Performing Lab: [address] [address] WBC 5.2 10*3/uL 5.0-10.0 RBC 5.64 10*6/uL 4.6-6.2 HGB 14.8 g/dL 14.0-18.0 HCT 46.5 42.0-52.0 MCV 82.4 fL 80.0-94.0 MCH 26.2 pg L 27.0-31.0 MCHC 31.8 g/dL L 32.0-36.0 PLT 211 10*3/uL 150-450 MPV 12.1 fL 9.0-13.1 RDW 13.1 11.0-16.0 NRBC 0.0 0.0-0.0 Oct 20, 2024 09:47 AM [facility] LIPID PROFILE PLASMA Specimen Type: PLASM [...] Oct 20, 2024 09:44 AM Reporting Lab: [address] [address] Performing Lab: [address] [address] CHOLESTEROL 163 mg/dL 0-199 TRIGLYCERIDE 166 mg/dL H 0-149 HDL CHOLESTEROL 28 mg/dL L 40-69 DIRECT LDL CHOL. 122 mg/dL H 0-100 Oct 20, 2024 09:47 AM [facility] PANEL 5 PLASMA Specimen Type: PLASM [...] Oct 20, 2024 09:44 AM Reporting Lab: [address] [address] Performing Lab: [address] [address] CREATININE 0.89 mg/dL 0.72-1.25 UREA NITROGEN 20 [...] (CKD-EPI) >90 Oct 20, 2024 09:47 AM [facility] PLASMA Specimen Type: PLASM A Comment: Estimated [...] Oct 20, 2024 09:44 AM Reporting Lab: [facility] [address] [facility] [address] Performing Lab: [place] [id number] [facility] [address] TSH 2.2190 m[IU]/mL 0.3500-4.9400 Encounter Notes: All associated encounter notes This section contains the clinical notes associated to the Encounter. Date/Time Encounter Note(s) Provider Source Oct 24, 2024 02:50 PM PHARMACY CONSULT: LOCAL TITLE: PHARMACY WARFARIN CONSULT RESPONSE STANDARD TITLE: PHARMACY CONSULT DATE OF NOTE: OCT 24, 2024@14:50 ENTRY DATE: OCT 24, 2024@14:50:07 AUTHOR: GRETA DUDLEY COSIGNER: URGENCY: STATUS: COMPLETED PHARMACY WARFARIN CONSULT RESPONSE Has ADDENDA Reason for consult: pt restarted on apixaban for recurrent afib (was on prior per LMD 2015, NSR with cardioversion - DOAC stopped) Summary of consult: Diagnosis: Atrial Fibrillation Recurrent Atrial Fibrillation. Previous episode in 2016 with return to NSR following cardioversion. Recently recurrent A.fib noted at [facility]. Patient started on Eliquis at that time. Review for appropriateness. Patient requesting prescription through [facility], this has been refilled Duration of therapy: Lifetime Medication: Apixaban Will patient continue an antiplatelet? No Active Outpatient Medications (including Supplies): Active Outpatient Medications Status = 1) GAUZE,PETROLATUM 3IN X 9IN USE GAUZE AFFECTED AREA TWICE A ACTIVE DAY APPLY TO FOOT WOUND Indication: FOR WOUND CARE. Active Non-VA Medications Status = 1) Non-VA APIXABAN 5MG TAB 5MG MOUTH TWICE A DAY ACTIVE Indication: TO THIN BLOOD 2) Non-VA ASPIRIN 81MG EC TAB 81MG MOUTH DAILY ACTIVE 3) Non-VA FUROSEMIDE 40MG TAB 40MG MOUTH DAILY ACTIVE Indication: FOR FLUID 4) Non-VA METOPROLOL SUCCINATE 200MG SA TAB 100MG MOUTH DAILY ACTIVE Indication: FOR BLOOD PRESSURE/HEART 5) Non-VA ROSUVASTATIN TAB 40MG MOUTH AT BEDTIME ACTIVE Indication: FOR CHOLESTEROL 6 Total Medications MEDICATION INX: APIXABAN: Avoid use with strong p-gp inducers: [place] wort, apalutamide, rifampin, carbamazepine, phenytoin, primidone*, phenobarbital*, enzalutamide* * limited date assessing the clinical significance of this possible inx, consider pt's thrombotic risk If taking 5mg or 10mg bid reduce dose by 50% or avoid if taking 2.5mg bid with strong p-gp and Strong CY inhibitors: prasugrel, apalutamide, ketoconazole, itraconazole, ritonavir. PANEL 1 Shaista. date GLUCOSE BUN CREAT SODIUM K CHLOR CO2 10/20/24 09:47 137 H 20 0.89 142 4.0 102 30 H 02/16/24 08:27 114 H 14 0.79 138 4.1 102 27 05/18/23 09:59 118 H 19 0.92 139 4.5 103 28 APIXABAN DOSING (afib): 2.5mg BID if Scr >=1.5 and one of the following 1. 80 y.o. or older 2. Weight 60kg or less 247.8 lb [112.40 kg] (10/20/2024 08:53) 74 in [188.0 cm] (10/20/2024 08:53) BODY MASS INDEX - 31.9 Est ClCr = > 100 ml/min(Actual body weight, calculated) PANEL 2 Shaista. date TOT PRO ALBUMIN SGOT SGPT Z ALK PHZ GGT, CZ TOTAL 10/20/24 09:47 7.3 4.3 25 52 71 0.5 02/16/24 08:27 6.8 4.4 22 33 62 0.8 04/28/23 08:56 6.9 4.3 15 22 63 0.8 PANEL 5 Shaista. date GLUCOSE BUN CREAT SODIUM K CHLOR CO2 10/20/24 09:47 137 H 20 0.89 142 4.0 102 30 H ---- CBC & AUTODIFF PROFILE ---- BLOOD Pool February 28 February 15 Apr 28 Reference 2024 2023 2023 2022 09:47 10:12 08:27 08:56 Units Ranges WBC 5.2 4.1 L 4.0 L 4.9 L K/cmm 5 - 10 RBC 5.6 5.8 5.6 6.0 M/cmm 4.6 - 6.2 HGB 14.8 15.6 15.2 16.6 g/dL 14 - 18 HCT 46.5 48.2 47.2 50.0 % 42 - 52 MCV 82.4 83.5 84.1 83.8 fL 80 - 94 MCH 26.2 L 27.0 27.1 27.8 pg 27 - 31 MCHC 31.8 L 32.4 32.2 33.2 g/dl 32 - 36 RDW 13.1 13.1 13.2 13.2 % 11 - 16 PLT 211 124 L 116 L 132 L K/cmm 150 - 450 MPV 12.1 12.1 11.6 12.7 fL 9 - 13.1 DOAC Score (maximum 10 points) = 0 or 2 (ASA???) very low annual bleed risk () Age: 65-69 (2), 70-74 (3), 75-79 (4), >= 80 (5) () CrC/EGFR (mL/min) 30-60 (1), <30 (2) () Underweight (BMI <18.5 kg/m2) (1) () Stroke, TIA/embolism history (1) () Diabetes (1) () Hypertension (1) (0 or 2) Antiplatelet use: ASA (2), DAPT (3) () NSAID USE (1) () Bleeding history (3) () Liver disease* (2) *Defined as AST, ALT, ALP >=3x ULN, ALP >=2x ULN, or cirrhosis Risk: Very low (0-3), low (4-5), moderate (6-7), high (8-9), very high (10) The maximum number of allocated points for an individual is 10, to prevent overestimation of risk in the high-risk group. (Circulation. 2022;148:447916. DOI:10.1161/CIRCULATIONAHA.1 .633389) Comments: Medication: apixaban 5mg bid Indication: afib [id number]: 1(HF) DOAC score:0 or 2 (ASA???) very low annual bleed risk HASBled: 0-1 (asa?) Duration: consult lists chronic Inx meds: asa (will confirm with pcp if can d/c active non-VA rx while on DOAC) Alcohol use: 3 beers per day tobacco use: smokeless tobacco daily Pt restarted apixaban 5mg bid by LMD earlier this month with recurrent afib. Pt alerting pcp of above and requesting Rx via [facility]. pcp ordered. Pt is only CHADSVASC of 1 (HF). Unsure if pt to continue DOAC chronically. Pt is followed by Local email marketing processor. Pt has active non-VA rx for ASA. Unable to find indication for need for ASA while on DOAC. Followup: Education: calling pt to determine when actually restarted DOAC and confirm he is obtaining via [facility], otherwise, will need to determine how much DOAC pt has remaining to order appropriately. Also need to discuss with pt on ASA status. Have requested clarification from pcp but would request if pt aware if he is to be continuing the ASA while back on DOAC. Assess compliance/tolerance to restart. offer medical alert if appropriate. Medical alert bracelet/necklace: offer if appropriate Chart review = 15 mins A/P 1. pt restarted on apixaban for recurrent afib (was on prior per LMD 2016, NSR with cardioversion - DOAC stopped) Received consult from pcp, states pt requesting Rx through [facility]. 2. Alert cashier clerk to schedule TeleDOAC for 10/27 for med ed. 3. Alert pcp to clarify if pt to continue ASA 81mg daily (active non-VA rx) while on DOAC. Unable to find indication for need for both. /emani/ GRETA DUDLEY PHARMD CLINICAL PHARMACIST-DIRECTOR OF SPECIAL SERVICES Signed: 10/24/2024 15:09 Receipt Acknowledged By: 10/24/2024 16:10 /es/ ARNOLD MOSQUEDA ADVANCED MSA 10/25/2024 09:19 /emani/ ULICES GREENFIELD PA-C 10/26/2024 ADDENDUM STATUS: COMPLETED ASA d/c by pcp in comment to consult Will discuss with pt at upcoming tdoac appt. /amy DUDLEY PHARMD CLINICAL PHARMACIST-DIRECTOR OF SPECIAL SERVICES Signed: 10/26/2024 08:10 GRETA DUDLEY-CHRISTINA [facility]
--- OUTSIDE RECORDS SUMMARY | 2025-01-11 20:47 | XMS_ITS | Encounter Summary ---
Author Name [facility] [place] [facility] [place] Address [address] [place] [id number] Care Team Providers Care Cyber Forensic Specialist Name Role Phone CHANEL BRITTANY Primary Care [...] Pérez AETNA VISION AETNA VISIO N [facility] Jan 02, 2022 [id number] [phone] [id number] [phone] [place],PH ILLIP PATIENT AETNA VISION VISION AETNA VISIO N [facility] Jan 02, 2022 [id number] ROME,PH ILLIP PATIENT [employer] TRICA RE DODA Oct 04, 2017 DODA [id number] ROME,PH ILLIP PATIENT (WNR) NONBI LLABL E Sep 03, 2010 NONBILL ABLE [id number] ROME,PH ILLIP PATIENT [facility] 2024 TRICA RE SELEC T Oct 04, 2024 [facility] [id number] ROME,PH ILLIP PATIENT [facility] 2024 JACKY Carbone WNR Oct 04, 2024 [facility] [id number] [phone] R[place],PH ILLIP PATIENT Selected Encounter This section includes the information on record at [place] for the Encounter. Date/Time Encounter Type Encounter Description Reason Pro vider Source Dec 05, 2024 11:42 AM Outpatient Encounter COMMUNITY CARE CONSULT IHE Encounter Template Text not used by [place] Plan of Treatment: Future Appointments (+ 6 months) and Future Tests (+/- 45 days) The Plan of Treatment section includes future care activities for the patient from all [place] treatmentfacilities. This section includes future appointments and future orders which are active, pending or scheduled. Future Appointments This section includes appointments that were scheduled to occur 6 months from the date of the Encounter, up to a maximum of 20 appointments. The data comes from all [place] treatment facilities. Appointment Date/Time Appointment Type Appointme nt Facility Name Dec 12, 2024 01:00 PM [facility] NONE [facility] Jan 11, 2025 10:00 AM AMBULATORY [facility] NONE [place] [facility] February 07, 2025 10:00 AM AMBULATORY - NONE [facility] Active, Pending, and Scheduled Orders This section includes a listing of several types of active, pending, and scheduled orders, including clinic medications orders, diagnostic test orders, procedure orders and consult orders; where the start date of the order is 45 days before the date of the Encounter or 45 days after the date of theEncounter. The data comes from all [facility]. Test Date/Time Test Type Test Details Facility Name Dec 07, 2024 09:28 AM Consult Order COMMUNITY CARE-DS ROUTINE OPT Cons Digital Research Analyst's Choice [facility] Dec 28, 2024 02:00 PM Consult Order COMMUNITY CARE-DS ROUTINE AUD Cons Digital Research Analyst's Choice [facility] Lab Results: +/- 30 days of the encounter This section includes the Chemistry and Hematology Lab Results on record with [place] for the patient. Radiology Reports and Pathology Reports are provided separately, in subsequent sections. Lab Results This section contains the Chemistry/Hematology Results that were resulted 30 days before or 30 daysafter the date of the Encounter. Date/Time Source Result Type Result - Unit Interpretation Reference Range Specimen Type Comment Nov 09, 2024 12:00 AM [facility] N OCCULT BLOOD FIT X1 SCREEN FECES Specimen Typ e: FECES No comment entered. Ordering Provider: ULICES GREENFIELD Report Released Date/Time: Oct 20, 2024 09:44 AM Reporting Lab: [address] [id number] Performing Lab: [address] [address] OCCULT BLOOD (FIT) #1 OF 1 Negative Nega tive Encounter Notes: All associated encounter notes This section contains the clinical notes associated to the Encounter. Date/Time Encounter Note(s) Provider Source Dec 05, 2024 11:42 AM NONVA NOTE: LOCAL TITLE: COMMUNITY CARE-CARE COORDINATION PLAN NOTE STANDARD TITLE: NONVA NOTE DATE OF NOTE: DEC 05, 2024@11:42 ENTRY DATE: DEC 05, 2024@11:42:33 AUTHOR: LENIN COLLINS EXP COSIGNER: URGENCY: STATUS: COMPLETED Community Care Consult: Consult No: [id number] [facility] Referral #: Chief Complaint: Chief Complaint: atrial fibrillation Patient Admitted? No Level of Care Coordination Moderate Care Coordination was determined from: Chart Review Facility Community Care Office Contact Care Coordination Point of Contact: Lenin Phone Number: [phone] Services: Basic Care Coordination Services Monitoring and coordination of Rehab/PT Services Direct communication to referring provider Care management, if appropriate Plan: Chart reviewed. Community care consult processed and sent to [facility] for scheduling and assigning of auth. /emani/ LENIN COLLINS MSN, RN CLINICAL REVIEW NURSE Signed: 12/05/2024 11:46 LENIN COLLINS [facility]
--- OUTSIDE RECORDS SUMMARY | 2025-01-11 20:47 | XMS_ITS ---
Author Name [facility] [place] [facility] [place] Address [address] [place] [address] Care Team Providers Care Weigh Boss Name Role Phone CHANEL BRITTANY Primary Care [...] VISIO N [facility] Jan 02, 2022 [id number] [phone] [id number] [facility] [phone] R[place],PH ILLIP PATIENT AETNA VISION VISION AETNA VISIO N [facility] Jan 02, 2022 [id number] [phone] [id number] R[place],PH ILLIP PATIENT [employer] TRICA RE DODA Oct 04, 2017 D[facility] [id number] R[place],PH ILLIP PATIENT (WNR) NONBI LLABL E Sep 03, 2010 NONBILL ABLE [id number] [place],PH ILLIP PATIENT [facility] 2024 TRICA RE SELEC T Oct 04, 2024 [facility] [id number] [place],PH ILLIP PATIENT [facility] 2024 JACKY Carbone WNR Oct 04, 2024 [facility] [id number] [phone] [place],PH ILLIP PATIENT Selected Encounter This section includes the information on record at [place] for the Encounter. Date/Time Encounter Type Encounter Description Reason Pro vider Source Dec 26, 2024 10:47 AM Outpatient Encounter ADMIN PAT ACTIVTIES (MASNONCT) IHE Encounter Template Text not used by [place] Plan of Treatment: Future Appointments (+ 6 months) and Future Tests (+/- 45 days) The Plan of Treatment section includes future care activities for the [facility] [place] [facility] This section includes future appointments and future orders which are active, pending or scheduled. Future Appointments This section includes appointments that were scheduled to occur 6 months from the date of the Encounter, up to a maximum of 20 appointments. The data comes from all [place] treatment facilities. Appointment Date/Time Appointment Type Appointme nt Facility Name Jan 11, 2025 10:00 AM AMBULATORY - NONE [place] [facility] February 07, 2025 10:00 AM AMBULATORY - NONE [facility] Active, Pending, and Scheduled Orders This section includes a listing of several types of active, pending, and scheduled orders, including clinic medications orders, diagnostic test orders, procedure orders and consult orders; where the start date of the order is 45 days before the date of the Encounter or 45 days after the date of theEncounter. The data comes from all [place] treatment facilities. Test Date/Time Test Type Test Details Facility Name Dec 07, 2024 09:28 AM Consult Order COMMUNITY CARE-DS ROUTINE OPT Cons Boil Off Worker's Choice [facility] Dec 28, 2024 02:00 PM Consult Order COMMUNITY CARE-DS ROUTINE AUD Cons Boil Off Worker's Choice [facility] Encounter Notes: All associated encounter notes This section contains the clinical notes associated to the Encounter. Date/Time Encounter Note(s) Provider Source Jan 01, 2025 11:21 AM ADDENDUM: LOCAL TITLE: Addendum STANDARD TITLE: ADDENDUM DATE OF NOTE: JAN 01, 2025@11:21:09 ENTRY DATE: JAN 01, 2025@11:21:10 AUTHOR: FELIX FARIAS EXP COSIGNER: URGENCY: STATUS: COMPLETED pt called asking for status of audio appt in [facility].told him there have been issues reaching him but verified his phone number is correct in our system.cell service can be spotty where he lives. please call to discuss appt and thank you /amy FARIAS [employer] [facility] Signed: 01/01/2025 11:22 Receipt Acknowledged By: 01/05/2025 09:59 /amy Erickson [facility] Dept[facility] AMSA-Pod 5 --- Original Document --- 12/26/24 CCC: SCHEDULING ADMINISTRATION: Caller Verification Call Back Number: [phone] Emergency Contact: VITALIY ROME Emergency Contact Caller/Recipient Relation to Patient: Self Caller Name: MEGHANN ROME Administrative Administrative Note Reason: Other Administrative Note Comments: asking to speak with Cheyanne Farias. Please call. IMPORTANT: This note was created by [facility] staff. Please do not alert the staff member by adding them as a signer for future communications. Alerts are not monitored by this user. /emani/ JAIMIE OWEN Signed: 12/26/2024 10:47 Receipt Acknowledged By: 01/01/2025 11:20 /amy FARIAS [employer] FELIX FARIAS-CDD [facility] Dec 26, 2024 10:47 AM ADMINISTRATIVE NOT E: LOCAL TITLE: CCC: SCHEDULING ADMINISTRATION STANDARD TITLE: ADMINISTRATIVE NOTE DATE OF NOTE: DEC 26, 2024@10:47:34 ENTRY DATE: DEC 26, 2024@10:47:34 AUTHOR: JAIMIE OWEN EXP COSIGNER: URGENCY: STATUS: COMPLETED CCC: SCHEDULING ADMINISTRATION Has ADDENDA Caller Verification Call Back Number: [phone] Emergency Contact: VITALIY ROME Emergency Contact Caller/Recipient Relation to Patient: Self Caller Name: MEGHANN ROME Administrative Administrative Note Reason: Other Administrative Note Comments: [place] asking to speak with Cheyanne Farias. Please call. IMPORTANT: This note was created by [facility] staff. Please do not alert the staff member by adding them as a signer for future communications. Alerts are not monitored by this user. /emani/ JAIMIE OWEN Signed: 12/26/2024 10:47 Receipt Acknowledged By: 01/01/2025 11:20 /amy FARIAS [employer] [facility] 01/01/2025 ADDENDUM STATUS: COMPLETED pt called asking for status of audio appt in [facility].told him there have been issues reaching him but verified his phone number is correct in our system.cell service can be spotty where he lives. please call to discuss appt and thank you /amy FARIAS [employer] Signed: 01/01/2025 11:22 Receipt Acknowledged By: 01/05/2025 09:59 /amy Erickson [facility] AMSA-Pod 5 01/05/2025 ADDENDUM STATUS: COMPLETED [place] has now been called, spoken with, scheduled - called back - with all coompleted. Information on [facility] Audiology Consult. /amy Erickson [facility] AMSA-Pod 5 Signed: 01/05/2025 10:00 JAIMIE OWEN-CHRISTINA [facility]
--- OUTSIDE RECORDS SUMMARY | 2025-01-11 20:47 | XMS_ITS | Encounter Summary ---
Author Name [place] Address [address] [place] [address] Care Team Providers Care Senior Fund Accountant Name Role Phone CHANEL BRITTANY Primary Care [...] Policy Pérez AETNA VISION AETNA VISIO N [facility] Jan 02, 2022 [id number] [facility] [phone] [place] PATIENT AETNA VISION VISION AETNA VISIO N [facility] Jan 02, 2022 [id number] [place] PATIENT [facility] TRICA RE DODA Oct 04, 2017 DODA [id number] [place] PATIENT (WNR) NONBI LLABL E Sep 03, 2010 NONBILL ABLE [id number] [place] PATIENT [facility] 2024 TRICA RE SELEC T Oct 04, 2024 SELECT [id number] [place] PATIENT [facility] 2024 JACKY Carbone WNR Oct 04, 2024 SELECT [id number] [place] PATIENT Selected Encounter This section includes the information on record at [place] for the Encounter. Date/Time Encounter Type Encounter Description Reason Provider Source May 16, 2024 12:30 PM OFFICE O/P EST LOW 20 MIN PODIATRY ICD-10-CM S92.424D Nondisp fx of dist phalanx of r great toe, 7thD KATZ,ALEXAN [place] IHE Encounter Template Text not used by [place] Assessments - Encounter Diagnoses This section includes the primary and secondary diagnoses documented for the Encounter. Date/Time Primary/Secondary Diagnosis Diagnosis Name Provider Source May 16, 2024 12:46 PM PRIMARY Nondisp fx of dist phalanx of r great toe, 7thD [facility] May 16, 2024 12:46 PM SECONDARY Unsp open wound of right great toe w damage to nail, subs [facility] Plan of Treatment: Future Appointments (+ [...] Date/Time Appointment Type Appointme nt Facility Name Aug 04, 2024 02:00 PM AMBULATORY - MEDICINE [facility] Oct 20, 2024 09:00 AM AMBULATORY - MEDICINE [facility] Oct 27, 2024 04:00 PM [facility] NONE [facility] Oct 30, 2024 08:00 AM [facility]ORY [facility] NONE [facility] Radiology Reports: +/- 30 days of the [...] the Encounter. The data comes from all [place] treatment facilities. Date/Time Radiology Report Provider Source Apr 19, 2024 10:43 AM U/S ABD COMPLETE: MEGHANN ROME [id number] -1965 M Exm Date: APR 19, 2024@10:43 Req Phys: OK HENRY Loc: CHUCK ATKINSON (Req'g Loc) Img Loc: ULTRASOUND Service: Unknown [place] [id number] (Case [id number] COMPLETE) U/S ABD COMPLETE (US Detailed) CPT:82133 Reason for Study: SEE CLINICAL HISTORY Clinical History: REASON FOR EXAM:Other (provide detailed justification for request) low platelets PERTINENT PATIENT HISTORY: PROVIDER [id number]# EMPHASIS ON LIVER/SPLEEN Report Status: Verified Date Reported: APR 19, 2024 Date Verified: APR 19, 2024 Customer Field Representative E-Sig: Report: Abdomen ultrasound. Ultrasound performed and [...] Interpreting Staff: DEVON BYRD, RADIOLOGIST Verified by sugar reprocess operator head for DEVON BYRD /DEVON COTA-D [facility] Apr 18, 2024 07:17 AM FOOT-RIGHT 3 OR [place] RE VIEWS: MEGHANN ROME [id number] -1965 M Exm Date: APR 18, 2024@07:17 Req Phys: CAROLANN KATZ Pat Loc: DEDRA POD/ATT1/LD (Req'g Loc) Img Loc: CDD RADIOLOGY Service: Unknown [place] [id number] (Case [id number] COMPLETE) FOOT-RIGHT 3 OR MORE VIEWS (RAD Detailed) CPT:78073 Reason for Study: 1st toe trauma Clinical History: 1st toe trauma Report Status: Verified Date Reported: APR 18, 2024 Date Verified: APR 18, 2024 Customer Field Representative E-Sig: Report: FOOT-RIGHT 3 OR MORE VIEWS HISTORY: 1st toe trauma COMPARISON: The exam from 10/05/2013 could not be retrieved. Comparison is made to the written report. TECHNIQUE: 3 view(s) of the right foot, submitted to the [place] National Teleradiology Program (NTP) for interpretation. FINDINGS: [...] the prior exam. READING PHYSICIAN: Nawaf Knox -[id number] 04/18/2024 12:42 CDT [facility] National Teleradiology Program [phone] (For Medical Practitioner Use Only) Attention Patients / Veterans: If you have questions or concerns about these test results, please contact your ordering provider or primary care team. Primary Diagnostic Code: NO ALERT REQUIRED Primary Interpreting Staff: OUTSIDE SERVICE RADIOLOGY, Staff Physician / RADIOLOGY,OUTSIDE SERVICE [facility] Pathology Reports: +/- 30 days [...] the Encounter. The data comes from all [place] treatment facilities. Date/Time Pathology Report Provider Source Apr 18, 2024 01:13 PM LR MICROBIOLOGY RE PORT: Reporting Lab: [facility] [CLIA# [id number]] [address] [place] [address] Accession [UID]: [id number] [[id number]] Received: Apr 18, 2024@13:13 Collection sample: SWAB [...] Performing Laboratory: Bacteriology Report Performed By: [facility] [CLIA# [id number]] [address] [place] [address] EDSON VÁSQUEZ [facility] Encounter Notes: All associated encounter notes This section contains the clinical notes associated to the Encounter. Date/Time Encounter Note(s) Provider Source May 16, 2024 02:12 PM SURGERY NURSING NO TE: LOCAL TITLE: SURGERY CLINIC INTAKE NOTE STANDARD TITLE: SURGERY NURSING NOTE DATE OF NOTE: MAY 16, 2024@14:12 ENTRY DATE: MAY 16, 2024@14:12:15 AUTHOR: MIRANDA COLEMAN COSIGNER: URGENCY: STATUS: COMPLETED The patient was given a list of his/her medications, instructed to review and discuss any changes or problems with their provider. Patient advised to carry a list of current medications and any allergies with them in the event of emergency situations. Allergies: local and remote Patient has answered A FACILITY ALLERGY/ADR -------- 636^[facility]^636ATORVASTATIN Medication Reconciliation MRR1 - Med Reconciliation INCLUDED IN THIS LIST: Alphabetical list of active outpatient prescriptions dispensed from this [facility] (local) and dispensed from another [place] or DoD facility (remote) as well as inpatient orders (local pending and active), local clinic medications, locally documented non-VA medications, and local prescriptions that have or been discontinued in the past 90 days. Non-VA Meds Last Documented On: Jun 29, 2023 NOTE The display of VA prescriptions dispensed from another VA or DoD facility (remote) is limited to active outpatient prescription entries matched to National Drug File at the originating site and may not include some items such as investigational drugs, compounds, etc. NOT INCLUDED IN THIS LIST: Medications self-entered by the patient into personal health records (i.e. [employer]) are NOT included in this list. Non-VA medications documented outside this [place], remote inpatient orders (regardless of status) and remote clinic medications are NOT included in this list. The patient and provider must always discuss medications the patient is taking, regardless of where the medication was dispensed or obtained. OUTPT AMOXICILLIN 875/CLAV K 125MG TAB (Status = Active) TAKE 1 TABLET BY MOUTH TWICE A DAY AFTER MEALS FOR SKIN OR SOFT TISSUE INFECTION Rx# [id number] Last Released: 04/18/24 Qty/Days Supply: 23/07 Rx Expiration Date: 05/18/24 Refills Remainin Indication: FOR SKIN OR SOFT TISSUE INFECTION Non-VA ASPIRIN 81MG EC TAB TAKE ONE TABLET BY MOUTH DAILY Nov 17, 2021 Patient wants to buy from Non-[place] pharmacy. OUTPT LIDOCAINE 5% OINT (Status = Discontinued) APPLY SMALL AMOUNT TO AFFECTED AREA EVERY 12 HOURS NEEDED FOR PAIN Rx# [id number] Last Released: 02/26/23 Qty/Days Supply: Rx Expiration Date: 02/25/24 Refills Remainin Indication: FOR PAIN Non-VA METOPROLOL SUCCINATE 200MG SA TAB TAKE ONE-HALF TABLET BY MOUTH DAILY Nov 17, 2021 Patient wants to buy from Non-[place] pharmacy. Non-VA ROSUVASTATIN CA TAB 40MG TAKE ONE TABLET BY MOUTH AT BEDTIME Jun 29, 2023 Patient wants to buy from Non-[place] pharmacy. [facility] Indication: FOR CHOLESTEROL Non-VA SILDENAFIL CITRATE 100MG TAB TAKE ONE TABLET BY MOUTH DIRECTED Jan 13, 2022 Patient wants to buy from Non-[place] pharmacy. OUTPT SIMETHICONE 80MG CHEW TAB (Status = ) CHEW FOUR TABLETS BY MOUTH ONCE FOR SCAN -TAKE 4 TABLETS AT 10PM NIGHT BEFORE ULTRASOUND, WITH FULL GLASS OF WATER. Rx# [id number] Last Released: 03/21/24 Qty/Days Supply: 01/02 Rx Expiration Date: 04/19/24 Refills Remainin Indication: FOR SCAN OUTPT SINUS RINSE NEILMED PKT (Status = Discontinued) USE 1 PACKET FOR NASAL IRRIGATION DIRECTED TWICE A DAY FOR CONGESTION -MIX DIRECTED ON PACKAGE WITH DISTILLED WATER THEN FOLLOW DIRECTIONS ON PACKAGE Rx# [id number] Last Released: 05/20/23 Qty/Days Supply: Rx Expiration Date: 05/18/24 Refills Remainin Indication: FOR CONGESTION OUTPT SINUS RINSE NEILMED REGULAR KIT (Status = Discontinued) USE KIT TO IRRIGATE NOSE TWICE A DAY FOR CONGESTION -MIX DIRECTED ON PACKAGE WITH DISTILLED WATER THEN FOLLOW DIRECTIONS ON PACKAGE. REPLACE BOTTLE EVERY 3 MONTHS Rx# [id number] Last Released: 05/19/23 Qty/Days Supply: Rx Expiration Date: 05/18/24 Refills Remainin Indication: FOR CONGESTION OUTPT SULFAMETHOXAZOLE 800/TRIMETH 160MG TAB (Status = Active) TAKE 1 TABLET BY MOUTH TWICE A DAY FOR SKIN OR SOFT TISSUE INFECTION Rx# [id number] Last Released: 04/27/24 Qty/Days Supply: 16/04 Rx Expiration Date: 05/24/24 Refills Remainin Indication: FOR SKIN OR SOFT TISSUE INFECTION SUPPLIES OUTPT GAUZE,PETROLATUM 3IN X 9IN (Status = Active) USE GAUZE AFFECTED AREA TWICE A DAY FOR WOUND CARE. APPLY TO FOOT WOUND Rx# [id number] Last Released: 05/06/24 Qty/Days Supply: 10/02 Rx Expiration Date: 05/03/25 Refills Remainin Indication: FOR WOUND CARE. /emani/ MIRANDA COLEMAN CNA Ancillary Warehouse Analyst Signed: 05/16/2024 14:12 MIRANDA COLEMAN-CHRISTINA [facility] May 16, 2024 12:25 PM PODIATRY ATTENDING NOTE: LOCAL TITLE: PODIATRY ATTENDING NOTE STANDARD TITLE: PODIATRY ATTENDING NOTE DATE OF NOTE: MAY 16, 2024@12:25 ENTRY DATE: MAY 16, 2024@12:25:11 AUTHOR: CAROLANN KATZ COSIGNER: URGENCY: STATUS: COMPLETED SOAP Note SUBJECTIVE: The patient is a 59 year old MALE. Chief Complaint: F/up pt with right 1st toe fracture (open), nettles sbene on antibiotics and tolerating well. Pt also with right 1st toe wound from same traumatic event. has been doing wound care as directed. Past Medical History: Active problems - Computerized Problem List is the source for the followin. Lumbar spondylosis 2. Exposure to potentially hazardous substance (SCT [id number]) 3. History of malignant basal cell neoplasm of skin 4. Paroxysmal atrial fibrillation 5. Chews tobacco 6. Obstructive sleep apnea 7. Osteoarthritis of bilateral hip joints 8. Hyperlipidemia ALLERGIES: Patient has answered NKA Food allergies: None known VITALS: SVS - Vital Signs Selected No data available for: BLOOD PRESSURE TEMPERATURE RESPIRATION PULSE PULSE OXIMETRY WEIGHT FOOT RISK LEVEL: MEDICATION RECONCILIATION: Reviewed current [...] case of an emergency situation. Yes OBJECTIVE: PACT FOOT EXAM A foot risk level was completed. The following risk level was identified for this patient: = +POD RISK SCORE+ --LEVEL 0 - (NORMAL RISK) Normal sensation and circulation No deformity No ulceration or history of amputation -POD RISK SCORE- 1. Explained the importance of daily foot checks. Explained that loss of sensation leads to callouses. Callouses break down, which result in ulcers that may lead to gangrene and amputation. 2. Stressed the importance of daily foot hygiene. Warm (not hot) bathing of the feet, complete drying and thorough inspection for changes in the condition of the skin constitute daily foot care. Demonstrated how to do a thorough foot check. 3. Emphasized the use of clean, non-restrictive socks/stockings and well fitting shoes. 4. Stressed the importance of immediate follow-up of any foot injuries or ulcers. Explained that he/she should be non-weight bearing whenever there are lesions on the foot, to prevent cellular damage. Level of Understanding: Good Patient/Caregiver having difficulty examining feet No Patient/caregiver has difficulty cleansing feet No Patient walks barefoot Never Instructed on the importance of not walking barefoot FOOT RISK LEVEL: 0 PE:AAOX3,NAD Lower Extermity Dermatological Exam: NAILS: wnl SKIN: no signs of infection bilat right 1st nail bed fully healed and epithelialized no open wounds bilat VASCULAR EVAL: 2/4 DP/PT bilat. Cap refil 1 sec x 10 NEUROLOGICAL EVALUATION: wnl bilat no signs of tarsal tunnel syndrome nor paraesthesias. Normal motor & sensory innervation bilat. ORTHOPEDICS EVALUATION: Lower Extermity Motor Function: 5/5 all lower extremity muscle groups bilat right 1st MPJ and right 1st toe IPJ full unrestricted pain free motion IMPRESSION: right 1s ttoe fracture - healing well open wound right 1st toe - healed PLAN: Discussed with patient the diagnosis and treatment plan on this clinic visit. D/C wound care. shoes and activity to tolerance. monitor for signs of infection and call us or go to ED immediately if so. Advise dmay develop DJD 1st toe / 1st toe joint in future as well as may have deformed 1st toenail once nail grows back in due to trauma to the nail bed/matrix. RTC: nikita /emani/ CAROLANN KATZ Chief, Podiatry Section Signed: 05/16/2024 12:46 CAROLANN KATZ-CHRISTINA [facility]
--- OUTSIDE RECORDS SUMMARY | 2025-01-11 20:47 | XMS_ITS | Encounter Summary ---
Author Name [place] Address [address] [place] [address] Care Team Providers Care Glass Inspector Name Role Phone BRITTANY BUCHANAN Primary Care [...] Policy Pérez AETNA VISION AETNA VISIO N [facility] Jan 02, 2022 [id number] [phone] [place] PATIENT AETNA VISION VISION AETNA VISIO N [facility] R Jan 02, 2022 [id number] [place]LL[place] PATIENT [employer] [facility] TRICA RE DODA Oct 04, 2017 DODA [id number] [place] PATIENT (WNR) NONBI LLABL E Sep 03, 2010 NONBILL ABLE [id number] [place] PATIENT [facility] 2024 TRICA RE SELEC T Oct 04, 2024 SELECT [id number] [place]LL[place] PATIENT [facility] 2024 JACKY Carbone WNR Oct 04, 2024 SELECT [id number] [place] PATIENT Selected Encounter This section includes the information on record at [place] for the Encounter. Date/Time Encounter Type Encounter Description Reason Provider Source Apr 24, 2024 10:44 AM Outpatient Encounter HEMATOLOGY ICD-10-CM D69.6 Thrombocytopenia, unspecified RUTH GONZALEZ Lynnette Encounter Template Text not used by [place] Assessments - Encounter Diagnoses This section includes the primary and secondary diagnoses documented for the Encounter. Date/Time Primary/Secondary Diagnosis Diagnosis Name Provider Source May 09, 2024 07:09 AM PRIMARY Thrombocytopenia, unspecified BEBA GONZALEZ [facility] May 09, 2024 07:09 AM SECONDARY Splenomegaly, not elsewhere classified BEBA GONZALEZ [facility] Plan of Treatment: Future Appointments (+ 6 months) and Future Tests (+/- 45 days) The Plan of Treatment section includes future care activities for the patient [facility] [place] [facility] This section includes future appointments and future [...] 02, 2024 09:00 AM [facility] May 16, 2024 12:30 PM [facility] Aug 04, 2024 02:00 PM AMBULATORY - MEDICINE [facility] Oct 20, 2024 09:00 AM AMBULATORY - MEDICINE [facility] Radiology Reports: +/- 30 days of [...] the Encounter. The data comes from all [place] treatment facilities. Date/Time Radiology Report Provider Source Apr 19, 2024 10:43 AM U/S ABD COMPLETE: MEGHANN ROME [id number] -1965 M Exm Date: APR 19, 2024@10:43 Req Phys: OK HENRY Loc: CHUCK ATKINSON (Req'g Loc) Img Loc: ULTRASOUND Service: [place] [address] (Case [id number] COMPLETE) U/S ABD COMPLETE (US Detailed) CPT:08590 Reason for Study: SEE CLINICAL HISTORY Clinical History: REASON FOR EXAM:Other (provide detailed justification for request) low platelets PERTINENT PATIENT HISTORY: PROVIDER [id number]# EMPHASIS ON LIVER/SPLEEN Report Status: Verified Date Reported: APR 19, 2024 Date Verified: APR 19, 2024 Exposure Machine Operator E-Sig: Report: Abdomen ultrasound. Ultrasound performed [...] Interpreting Staff: DEVON BYRD, RADIOLOGIST Verified by applied statistician for DEVON BYRD /DEVON COTA-D [facility] Apr 18, 2024 07:17 AM FOOT-RIGHT 3 OR [place] RE VIEWS: MEGHANN ROME [id number] -1965 M Exm Date: APR 18, 2024@07:17 Req Phys: CAROLANN KATZ Loc: DEDRA POD/ATT1/LD (Req'g Loc) Img Loc: CDD RADIOLOGY Service: [place] [address] (Case [id number] COMPLETE) FOOT-RIGHT 3 OR MORE VIEWS (RAD Detailed) CPT:17613 Reason for Study: 1st toe trauma Clinical History: 1st toe trauma Report Status: Verified Date Reported: APR 18, 2024 Date Verified: APR 18, 2024 Exposure Machine Operator E-Sig: Report: FOOT-RIGHT 3 OR MORE VIEWS HISTORY: 1st toe trauma COMPARISON: The exam from 10/05/2013 could not be retrieved. Comparison is made to the written report. TECHNIQUE: 3 view(s) of the right foot, submitted to the [place] National Teleradiology Program (NTP) for interpretation. FINDINGS: [...] the prior exam. READING PHYSICIAN: Nawaf Knox -[phone] 04/18/2024 12:42 CDT [facility] National Teleradiology Program [phone] (For Medical Practitioner Use Only) Attention Patients / Veterans: If you have questions or concerns about these test results, please contact your ordering provider or primary care team. Primary Diagnostic Code: NO ALERT REQUIRED Primary Interpreting Staff: OUTSIDE SERVICE RADIOLOGY, Staff Physician / RADIOLOGY,OUTSIDE SERVICE [facility] Pathology Reports: +/- 30 days of the [...] the Encounter. The data comes from all [place] treatment facilities. Date/Time Pathology Report Provider Source Apr 18, 2024 01:13 PM LR MICROBIOLOGY RE PORT: Reporting Lab: [facility] [CLIA# [id number]] [address] [place] [address] Accession [UID]: [id number] [[id number]] Received: Apr 18, 2024@13:13 Collection sample: SWAB [...] Performing Laboratory: Bacteriology Report Performed By: [facility] [CLIA# [id number]] [address] [place] [address] EDSON VÁSQUEZ [facility] Encounter Notes: All associated encounter notes This section contains the clinical notes associated to the Encounter. Date/Time Encounter Note(s) Provider Source Apr 24, 2024 10:44 AM HEMATOLOGY AND ONC OLOGY CONSULT: LOCAL TITLE: E-CONSULT RESPONSE DEDRA HEM/ONC STANDARD TITLE: HEMATOLOGY AND ONCOLOGY CONSULT DATE OF NOTE: APR 24, 2024@10:44 ENTRY DATE: APR 24, 2024@10:44:27 AUTHOR: VIET GONZALEZ EXP COSIGNER: URGENCY: STATUS: COMPLETED eCONSULT RESPONSE DEDRA HEM/ONC: Summary of Review and Recommendations: Mr. Rome's mild thrombocytopenia is unchanged since at least February 2010 and ranged from 111K-144K on multiple CBCs from 2009 to 2015 at the prior [place]. In addition, a platelet count in 2007 was already low at 147K. These records are available for your review in [facility] if desired. Thus, regardless of the etiology, no further evaluation is indicated. Of note, in addition to the mild splenomegaly, alcohol use of more than the 2-3 beers per day that Mr. Rome indicates can also suppress the platelet count. I spent 15 minutes reviewing Mr. Rome's CPRS, [facility] and [facility] records as well as preparing this note. /emani/ VIET GONZALEZ M.D. CHIEF/HEMATOLOGY/ONCOLOGY SECTION Signed: 04/24/2024 10:59 VIET GONZALEZ-CDD [facility]
== END 2025-01-09 23:59 | disposition home or self-care (01) ==
LOC: RAD 07:08
PROVIDERS: Visit Provider Nurse Practitioner
DX: R07.9 Chest pain, unspecified (principal); R06.09 Other forms of dyspnea; I48.91 Unspecified atrial fibrillation
CPT/HCPCS: 78452; 93017; 93018; A9502; J2785

== ENCOUNTER 2025-02-09 07:49 | Day surgery (SDC) | payer OTHER, SELFPAY ==
[2025-02-09] VITALS (13 sets, daily range): BP systolic 94–119; BP diastolic 55–73; PULSE 51–68; RESP 14–20; TEMP 36.3–36.6; O2SAT 91–98; BMI 30.5
--- NOTE | 2025-02-09 07:13 | IR_ITS ---
APPROVED REPORT Patient Location: Outpatient PROCEDURES Left heart catheterization Left ventriculogram Selective coronary angiogram INDICATION Abnormal Myoview, Angina pectoris, Informed consent was obtained prior to the procedure. COMPLICATIONS NONE Estimated Blood Loss: LESS THAN 10 ML TECHNIQUE One percent lidocaine used to anesthetize the right anterior aspect of the wrist. The right radial artery was accessed via the Seldinger technique. A 6 Kosovan sheath was placed in the right radial artery. 2.5 mg of Verapamil, 800 mcg of nitroglycerin, 1mg Lidocaine and 5000 U Heparin were given through the arterial sheath. The 6 Kosovan JL 3 catheter was also used to perform left heart catheterization, left ventriculogram and selective coronary angiogram. At the end of the procedure the sheath was removed good hemostasis was achieved using Traclet band, patient was transferred to the postop holding area in stable condition. ANGIOGRAPHIC RESULTS The left main artery Has an ostial 20% stenosis The left anterior descending artery Mild proximal mid vessel 10% luminal regularities The circumflex artery Mild 10% luminal regularities The right coronary artery Large dominant with proximal and mid vessel 10% luminal regularities The RHODES ventriculogram reveals Slight left ventricular dilatation reduced ejection fraction of 45% The left ventricular end-diastolic pressure Elevated at 20 mmHg IMPRESSION Mild nonflow limiting coronary disease as described above Dilated ventricle with reduced ejection fraction Elevated LVEDP PLAN 1. Consider cardiac MRI 2. Risk factor modification Electronically signed by : Chan Rose MD 02/09/2025 09:37:18
[2025-02-09 08:17] LABS: Basophils % 0.9 % (0.1-2.0); Eosinophils # 0.1 Kmm3 (0.0-0.4); Eosinophils % 2.4 % (0.1-12.0); Hematocrit 46.5 % (42.0-52.0); Hemoglobin 15.4 g/dL (14.1-18.0); Immature Granulocytes # 0.01 10^3uL; Immature Granulocytes % 0.2 %; Lymphocytes # 1.6 K/mm3 (0.7-4.5); Lymphocytes % 34.8 % (10-50); Mean Corpuscular HGB Conc 33.1 g/dL (31.8-35.4); Mean Corpuscular Hemoglobin 27.2 pg (27.0-31.2); Mean Platelet Volume 11.9 fl (7.4-10.4); Monocytes # 0.3 K/mm3 (0.1-1.0); Monocytes % 7.4 % (1.7-9.3); Neutrophils # 2.5 K/mm3 (1.8-7.8); Neutrophils % 54.3 % (37.0-80.0); Nucleated Red Blood Cells # 0 10^3/uL; Nucleated Red Blood Cells % 0 %; Platelet Count 119 K/mm3 (142-424); Red Blood Count 5.67 M/mm3 (4.60-6.20); Red Cell Distribution Width 13.7 % (11.5-17.5); Red Cell Distribution Width-SD 40.4 fL; White Blood Count 4.6 K/mm3 (4.8-10.8)
[2025-02-09 08:28] LABS: Anion Gap 6.2 mEq/L (5-15); Blood Urea Nitrogen 21 mg/dl (9-20); Calcium 8.9 mg/dl (8.4-10.2); Carbon Dioxide 31 mmol/L (22.0-30.0); Chloride 106 mmol/L (98-107); Creatinine Clearance Estimated 118 mL/min (50-200); Estimated Glomerular Filt Rate 98 ml/min (>60); GFR (African American) 119 ML/MIN (>60); Glucose 127 mg/dl (74-100); Potassium 4.2 mmoL/L (3.5-5.1); Sodium 139 mmol/L (136-145)
[2025-02-09] MEDS: diphenhydrAMINE 50MG/ML VIAL 50 MG IV (09:19)
[2025-02-09] MEDS: LIDOCAINE 1% 10ML MDV 10 ML IJ (09:19)
[2025-02-09] MEDS: 0.9 % SODIUM CHLORIDE 500 ML 25 ML IV (09:19)
[2025-02-09] MEDS: HEPARIN 1,000 UNITS/500ML NS (CATH LAB) 3000 UNIT IV (09:19)
[2025-02-09] MEDS: VERAPAMIL 2.5MG/ML 2ML VIAL 2.5 MG IV (09:20)
[2025-02-09] MEDS: NITROGLYCERIN 800MCG/8ML SYR (CATH LAB) 800 MCG IA (09:20)
[2025-02-09] MEDS: HEPARIN 1,000 UNITS/ML 10ML VIAL (CATH LAB) 5000 UNIT IV (09:20)
[2025-02-09] MEDS: FENTANYL 100MCG/2ML VIAL 50 MCG IV (09:34)
[2025-02-09] MEDS: MIDAZOLAM HCL 1MG/ML 5ML VIAL 1 MG IV (09:34)
[2025-02-09] MEDS: IOPAMIDOL-370 (76%);100ML BOTTLE 60 ML IV (12:43)
== END 2025-02-09 12:45 | disposition home or self-care (01) ==
PROVIDERS: Visit Provider Internal Medicine
PROC: 4A023N7 Measurement of Cardiac Sampling and Pressure, Left Heart, Percutaneous Approach (ICD-10-PCS; CPT 93452; principal; 2025-02-09 07:30)
DX: I25.118 Atherosclerotic heart disease of native coronary artery with other forms of angina pectoris (principal); I48.0 Paroxysmal atrial fibrillation; I10 Essential (primary) hypertension; R94.39 Abnormal result of other cardiovascular function study; Z88.8 Allergy status to other drugs, medicaments and biological substances; Z79.899 Other long term (current) drug therapy; Z96.641 Presence of right artificial hip joint; Z79.01 Long term (current) use of anticoagulants; I42.8 Other cardiomyopathies
CPT/HCPCS: 80048; 85025; 93458; 99152; C1725; C1769; J1200; J1644; J3010; Q9967

== ENCOUNTER 2025-03-09 09:48 | Day surgery (SDC) | payer OTHER, SELFPAY ==
[2025-03-09 09:51] VITALS: BMI 30.8
[2025-03-09 09:55] VITALS: BP 145/95; PULSE 60; PULSE 75; RESP 18; TEMP 36.6; O2SAT 95
--- NOTE | 2025-03-09 10:08 | SUR.OPER ---
asa level assigned by civil laboratory technician and reviewed
[2025-03-09 10:35] VITALS: BP 143/95; BP 145/95; PULSE 54; PULSE 61; PULSE 64; RESP 20; O2SAT 94; O2SAT 97
--- NOTE | 2025-03-09 10:39 | ECG_ITS ---
APPROVED REPORT Exam: Resting ECG HR:62 bpm ECG Measurements Heart Rate 62 AXES UT 172 P 41 QRSd 105 QRS -32 QT 438 T 31 QTc 443 Conclusion SINUS RHYTHM LEFT AXIS DEVIATION [QRS AXIS < -30] INCOMPLETE RIGHT BUNDLE BRANCH BLOCK [90+ ms QRS DURATION, TERMINAL R IN V1/V2, 40+ ms S IN I/aVL/V4/V5/V6] ABNORMAL ECG UNCONFIRMED REPORT Electronically signed by : Derek Burnette MD 03/12/2025 08:44:53
[2025-03-09 10:45] VITALS: BP 113/71; PULSE 62; RESP 20; O2SAT 95
[2025-03-09] MEDS: PROPOFOL 10MG/ML 20ML VIAL 10 MG IV (10:48)
[2025-03-09 10:55] VITALS: BP 124/78; PULSE 56; RESP 20; O2SAT 95
[2025-03-09 11:11] VITALS: BP 125/75; PULSE 61; RESP 20; O2SAT 95
--- NOTE | 2025-03-12 15:27 | P.PCN_ITS ---
[facility] Cardioversion Cardioversion Date: 03/12/25 Provider:: Renaldo Kingsley Procedure Performed:: Cardioversion Diagnosis:: Atrial fibrillation Procedure Summary:: Patient was brought to Senior Clinical Data Analyst and informed consent was obtained. Anesthesia was provided per Senior Clinical Data Analyst RN and patient was cardioverted at 200 J x one converting to normal sinus rhythm. Patient tolerated procedure well. Procedure performed by Katie Rose MD Dictated by Rick Dowell APRN Complications:: None
== END 2025-03-09 11:13 | disposition home or self-care (01) ==
PROVIDERS: PCP Physician Assistant; Visit Provider Internal Medicine
PROC: 5A2204Z Restoration of Cardiac Rhythm, Single (ICD-10-PCS; CPT 92960; principal; 2025-03-09 07:30)
DX: I48.91 Unspecified atrial fibrillation (principal); I25.10 Atherosclerotic heart disease of native coronary artery without angina pectoris; I11.9 Hypertensive heart disease without heart failure; I43 Cardiomyopathy in diseases classified elsewhere; Z79.01 Long term (current) use of anticoagulants; Z79.899 Other long term (current) drug therapy; Z88.8 Allergy status to other drugs, medicaments and biological substances
CPT/HCPCS: 92960; 93005; 99152; J2704

== ENCOUNTER 2025-07-12 09:15 | Outpatient (CLI) | payer OTHER, SELFPAY ==
[2025-07-12 09:54] LABS: Hematocrit 48.9 % (42.0-52.0); Hemoglobin 16.2 g/dL (14.1-18.0); Immature Granulocytes % 0.5 %; Mean Corpuscular HGB Conc 33.1 g/dL (31.8-35.4); Mean Corpuscular Hemoglobin 27.6 pg (27.0-31.2); Mean Corpuscular Volume 83.4 fl (80-94); Nucleated Red Blood Cells % 0 %; Platelet Count 134 K/mm3 (142-424); Red Blood Count 5.86 M/mm3 (4.60-6.20); Red Cell Distribution Width-SD 41.1 fL; White Blood Count 5.9 K/mm3 (4.8-10.8)
[2025-07-12 10:52] LABS: Alanine Aminotransferase 33 U/L (12-78); Albumin Level 4.7 g/dl (3.5-5.0); Alkaline Phosphatase 83 U/L (38-126); Aspartate Amino Transferase 27 U/L (17-59); Bilirubin,Direct 0.4 mg/dl (0.0-0.4); Bilirubin,Indirect 0.9 mg/dL (0.0-0.9); Bilirubin,Total 1.3 mg/dl (0.2-1.3); Bilirubin,Unconjugated 0.9 mg/dL (0.0-1.1); Cholesterol 191 mg/dl (140-200); HDL Cholesterol 45 mg/dl (40-60); Magnesium 2.4 mg/dl (1.6-2.3); Total Protein,Serum 7.0 g/dl (6.3-8.2); Triglycerides 178 mg/dl (30-150)
[2025-07-12 11:10] LABS: Free T4 (Free Thyroxine) 1.18 ng/dl (0.78-2.19)
[2025-07-12 11:24] LABS: Thyroid Stimulating Hormone 1.90 uIU/mL (0.465-4.68)
== END 2025-07-12 23:59 | disposition home or self-care (01) ==
PROVIDERS: PCP Chiropractor; Visit Provider Nurse Practitioner
DX: I25.10 Atherosclerotic heart disease of native coronary artery without angina pectoris (principal); I10 Essential (primary) hypertension
CPT/HCPCS: 36415; 80061; 80076; 83735; 84439; 84443; 85025